=== PATIENT | male | born 1955 | race Caucasian/White ===

== ENCOUNTER 2017-11-07 08:00 | Outpatient (CLI) | payer BC | END 2017-11-07 08:01 | disposition home or self-care (01) | LOC: BICULT 08:00 | PROVIDERS: ATTEND Physician Assistant | DX: R79.89 Other specified abnormal findings of blood chemistry (principal); K74.60 Unspecified cirrhosis of liver; N28.1 Cyst of kidney, acquired; K76.6 Portal hypertension | CPT/HCPCS: 76700 ==

== ENCOUNTER 2017-12-16 07:20 | Emergency (ER) | payer BC ==
[2017-12-16 09:00] LABS: ALT (SGPT) 33 U/L (8-55); AST (SGOT) 75 U/L (5-34); Albumin 2.7 g/dL (3.4-4.8); Alkaline Phosphatase 89 U/L (40-150); Anion Gap 12 mmol/L (10-20); BUN (Urea Nitrogen) 9 mg/dL (8.4-25.7); Bilirubin, Total 2.7 mg/dL (0.2-1.2); Calc. Creatinine Clearance 0 mL/min (70-130); Calcium 8.3 mg/dL (7.8-10.44); Carbon Dioxide 22 mmol/L (23-31); Chloride 103 mmol/L (98-107); Estimated GFR-MDRD Greater than 90; Globulin 4.3 g/dL (2.4-3.5); Glucose 158 mg/dL (80-115); Lipase 38 U/L (8-78); Potassium 3.6 mmol/L (3.5-5.1); Sodium 133 mmol/L (136-145)
[2017-12-16 11:00] LABS: #Eosinphils 0.1 thou/uL (0.0-0.7); #Lymphocytes 1.1 thou/uL (1.20-3.40); #Monocytes 1.5 thou/uL (0.11-0.59); #Neutrophils 11.1 thou/uL (1.40-6.50); %Basophils 0.2 % (0.0-1.0); %Eosinophils 0.9 % (0.0-10.0); %Lymphocytes 8.1 % (21.0-51.0); %Monocytes 10.9 % (0.0-10.0); Hemoglobin 10.3 g/dL (14.0-18.0); Mean Corpuscular HGB CONC 30.8 g/dL (32.0-36.0); Mean Corpuscular Hemoglobin 24.4 pg (27.0-31.0); Mean Corpuscular Volume 79.2 fl (80.0-94.0); Mean Platelet Volume 7.7 fL (7.4-10.4); PLT Morphology Comment Appears Decreased; Platelet Count 68 thou/uL (130-400); RBC Distribution Width 16.7 % (11.5-14.5); Red Blood Cell (RBC) Count 4.23 mill/uL (4.70-6.10); White Blood Cell (WBC) Count 13.9 thou/uL (4.8-10.8)
[2017-12-16 12:24] LABS: Bilirubin Negative (Negative); Blood, Urine Negative (Negative); Clarity CLEAR (Clear); Glucose, Urine (Dipstick) Negative (Negative); Leukocyte Negative (Negative); Nitrite Negative (Negative); Protein, Urine (Dipstick) Negative (Neg-Trace)
--- NOTE | 2017-12-16 13:31 | CT ---
CT OF THE ABDOMEN AND PELVIS WITH IV CONTRAST: Date: 12/16/17 INDICATION: History of epigastric abdominal pain, fever, and chills. Pain is also in the right lower quadrant of the abdomen. History of colonoscopy 5 days ago with polyp removal. COMPARISON: None. FINDINGS: There is cirrhotic morphology of the liver. There is a tiny, subcentimeter, hypodensity within the ri ght hepatic dome on image 13, series 2. The gallbladder is partially distended. The spleen is enlarged, measuring 15.1 cm. Pancreas and adrenal glands are unremarkable. There are pe risplenic varicosities. There is a 2.4 cm exophytic hypodensity involving the left mid kidney that can be further characteriz ed on this single contrast exam. No hydronephrosis is evident. There is a retroaortic left renal vein. Prostate is mildly enlarged. There is nonspecific wall thickening involving portions of the cecum and ascending colon with some mi ld pericolonic inflammatory stranding. There is a normal appendix in the right lower quadrant. The di stal ileum appears within normal limits. No definite acute osseous abnormality is evident. IMPRESSION: 1. Wall thickening with pericolonic inflammatory stranding involving the cecum and ascending colon m ay reflect colitis of infections, inflammatory, or ischemic etiology. No drainable fluid collection i s evident. 2. Cirrhosis with findings of portal hypertension. 3. Hypodense lesion involving the left mid kidney incompletely characterized on the current examinat ion. Follow-up renal ultrasound may be helpful for improved characterization. 4. Other chronic findings as above. POS: [facility]
[2017-12-16] MEDS ORDERED: Iopamidol 370 76% 50 ML VIAL FS ONE (13:32)
[2017-12-16] MEDS ORDERED: ISOVUE-370 76%-LOCM 1 ML ONE (13:32)
[2017-12-16] MEDS ORDERED: Ciprofloxacin 500 MG TAB ONE (14:01)
[2017-12-16] MEDS ORDERED: metroNIDAZOLE 250 MG TAB ONE (14:01)
--- NOTE | 2018-01-01 15:12 | EKG ---
Test Reason : ABD PAIN Blood Pressure : / mmHG Vent. Rate : 079 BPM Atrial Rate : 079 BPM P-R Int : 178 ms QRS Dur : 094 ms QT Int : 402 ms P-R-T Axes : 036 -24 012 degrees QTc Int : 460 ms Normal sinus rhythm Septal infarct , age undetermined Abnormal ECG Confirmed by NEMO DELGADO ([id number]), editorial writer ELAINA JIN ([id number]) on 01/01/2018 3:12:12 PM Referred By: DR DELGADO Confirmed By:NEMO DELGADO
== END 2017-12-16 14:35 | disposition home or self-care (01) ==
LOC: ERS 07:20
DX: K91.89 Other postprocedural complications and disorders of digestive system (principal); D72.829 Elevated white blood cell count, unspecified; K74.60 Unspecified cirrhosis of liver
CPT/HCPCS: 36415; 74177; 80053; 81003; 83605; 83690; 85025; 93005; 96360; 96361

== ENCOUNTER 2017-12-24 08:12 | Outpatient (CLI) | payer OTHER | END 2017-12-24 08:13 | disposition home or self-care (01) | LOC: DTY/OP 08:12 | PROVIDERS: ATTEND Physician Assistant | DX: E11.9 Type 2 diabetes mellitus without complications (principal) | CPT/HCPCS: 97802 ==

== ENCOUNTER 2018-07-15 07:15 | Outpatient (CLI) | payer MEDICARE | END 2018-07-15 07:16 | disposition home or self-care (01) | LOC: BICULT 07:15 | PROVIDERS: ATTEND Internal Medicine Hematology & Oncology | DX: R16.1 Splenomegaly, not elsewhere classified (principal); D61.818 Other pancytopenia; N28.1 Cyst of kidney, acquired | CPT/HCPCS: 76700 ==

== ENCOUNTER 2018-11-16 08:42 | Outpatient (CLI) | payer MEDICARE ==
--- NOTE | 2018-11-16 11:31 | MRI ---
MRI OF THE RIGHT SHOULDER: DATE: 11/16/2018. PROVIDED CLINICAL HISTORY: Right shoulder pain. FINDINGS: There is full thickness, full width retracted tearing of the supraspinatus tendon with retraction to about the level of the acromion. There is extension of tear to involve the anterior fibers of the in fraspinatus in a full-thickness, partial width manner. Partial thickness undersurface tearing involv ing the cranial fibers of the subscapularis distally may be present. The components of the rotator c uff appear otherwise intact. Rotator cuff muscular volume appears preserved. There is medial sublux ation of the long head biceps tendon within the bicipital groove that may reflect bicipital sling inj ury. The amount of fluid within the glenohumeral joint appears physiologic. There is greater than physiol ogic subacromial subdeltoid bursal fluid. The glenoid labrum and glenohumeral articular cartilage ar e suboptimally evaluated in the absence of joint distention but appear grossly normal. Os acromiale and acromioclavicular joint osteoarthrosis are noted with narrowing of the subacromial s pace. Patchy signal alteration involving the deltoid muscle. Regional marrow and muscular signal ap pear otherwise unremarkable. IMPRESSION: 1. Full-thickness, full-width retracted tear of supraspinatus, with extension to involve the infrasp inatus in a full-thickness partial-width manner. Small partial thickness undersurface tear involving the cranial fibers of subscapularis may be present. 2. Medial subluxation of long-head biceps tendon within the bicipital groove may reflect bicipital s ling injury. 3. Acromioclavicular joint osteoarthrosis and os acromiale with narrowing of the subacromial space. 4. Signal alteration involving the deltoid muscle may reflect a small area of muscular strain or con tusion. POS: [facility]
== END 2018-11-16 08:43 | disposition home or self-care (01) ==
LOC: BICMRI 08:42
PROVIDERS: ATTEND Family Medicine
DX: M75.41 Impingement syndrome of right shoulder (principal); M75.121 Complete rotator cuff tear or rupture of right shoulder, not specified as traumatic; S43.001A Unspecified subluxation of right shoulder joint, initial encounter; M19.041 Primary osteoarthritis, right hand; M25.811 Other specified joint disorders, right shoulder; R93.7 Abnormal findings on diagnostic imaging of other parts of musculoskeletal system

== ENCOUNTER 2018-11-23 07:18 | Outpatient (CLI) | payer MEDICARE, OTHER ==
[2018-11-23 12:15] LABS: #Eosinphils 0.1 thou/uL (0.0-0.7); #Lymphocytes 0.5 thou/uL (1.20-3.40); #Monocytes 0.4 thou/uL (0.11-0.59); #Neutrophils 3.2 thou/uL (1.40-6.50); %Basophils 1.1 % (0.0-1.0); %Eosinophils 1.5 % (0.0-10.0); %Lymphocytes 11.9 % (21.0-51.0); %Monocytes 9.5 % (0.0-10.0); %Neutrophils 76.1 % (42.0-75.0); Hemoglobin 15.1 g/dL (14.0-18.0); Mean Corpuscular HGB CONC 32.9 g/dL (32.0-36.0); Mean Corpuscular Hemoglobin 32.7 pg (27.0-31.0); Mean Corpuscular Volume 99.6 fL (78.0-98.0); Mean Platelet Volume 9.7 fL (7.4-10.4); Platelet Count 53 thou/uL (130-400); RBC Distribution Width 13.6 % (11.5-14.5); Red Blood Cell (RBC) Count 4.61 mill/uL (4.70-6.10); White Blood Cell (WBC) Count 4.2 thou/uL (4.8-10.8)
[2018-11-23 12:31] LABS: Anion Gap 13 mmol/L (10-20); BUN (Urea Nitrogen) 7 mg/dL (8.4-25.7); Calc. Creatinine Clearance 0 mL/min (70-130); Calcium 8.9 mg/dL (7.8-10.44); Carbon Dioxide 21 mmol/L (23-31); Chloride 104 mmol/L (98-107); Estimated GFR-MDRD Greater than 90; Glucose 252 mg/dL (80-115); Potassium 4.3 mmol/L (3.5-5.1); Sodium 134 mmol/L (136-145)
--- NOTE | 2018-11-23 20:22 | EKG ---
Test Reason : Blood Pressure : / mmHG Vent. Rate : 068 BPM Atrial Rate : 068 BPM P-R Int : 168 ms QRS Dur : 094 ms QT Int : 394 ms P-R-T Axes : 038 -15 -02 degrees QTc Int : 418 ms Normal sinus rhythm Septal infarct (cited on or before 16-DEC-2017) Abnormal ECG When compared with ECG of 16-DEC-2017 08:28, Nonspecific T wave abnormality no longer evident in Lateral leads Confirmed by ROSEY RICHARDS, SLance ([id number]) on 11/23/2018 8:22:17 PM Referred By: SARA Confirmed By:DR. Maria Alejandra CURRIE MD
== END 2018-11-23 07:19 | disposition home or self-care (01) ==
LOC: LABBT 07:18
PROVIDERS: ATTEND Orthopaedic Surgery
DX: Z01.818 Encounter for other preprocedural examination (principal); M75.101 Unspecified rotator cuff tear or rupture of right shoulder, not specified as traumatic
CPT/HCPCS: 80048; 85025; 93005; 93010

== ENCOUNTER 2018-12-24 15:08 | Outpatient (CLI) | payer MEDICARE, OTHER ==
[~2018-12-24 15:08] MED LIST: Gadobenate Dimeglumine 529 MG/1 ML (20ML VIAL) ONE
--- NOTE | 2018-12-24 16:31 | RAD ---
MRI SAFETY [place] VIEW Date: 12-24-18 Provided Clinical History: MRI safety. FINDINGS: Single frontal view of the orbits was obtained for the purposes of exclusion of metallic foreign body in the region of the orbits. There is no evidence for such. IMPRESSION: As above. POS: OFF
--- NOTE | 2018-12-24 19:49 | MRI ---
MR OF THE ABDOMEN WITH AND WITHOUT CONTRAST 12/24/18 INDICATION: History of cirrhosis of the liver. CONTRAST: 15 mL of Multihance. COMPARISON: Prior CAT of the abdomen and pelvis dated 12/16/17. FINDINGS: There is prominent cirrhotic morphology of the liver. The spleen is enlarged measuring 16 cm. There a re numerous hypoenhancing, T2 hypointense, T1 hyperintense nodule seen throughout the liver consisten t with regenerative nodules. There is a small septated cyst involving the left mid kidney measuring 1.6 cm. No pathologically enlarged lymph nodes are evident. The pancreas and adrenal glands appear wi thin normal limits. There are mild splenic varicosities. There is suspected hemangioma within the lef t aspect of L3 and within the right aspect of L4. IMPRESSION: Cirrhosis with multiple regenerative nodules. No suspicious arterial enhancing lesion is seen to sugg est the presence of malignancy. Recommend short term MR followup in six months to document stability. Small internally septated left cyst measuring 1.6 cm. This can be followed up on the MR examination i n six months. Findings of portal hypertension. POS: [facility]
== END 2018-12-24 15:09 | disposition home or self-care (01) ==
LOC: BICCT 15:08
PROVIDERS: ATTEND Physician Assistant Medical
DX: K74.60 Unspecified cirrhosis of liver (principal); B18.2 Chronic viral hepatitis C; I83.90 Asymptomatic varicose veins of unspecified lower extremity; K76.89 Other specified diseases of liver
CPT/HCPCS: 70210; 74183; A9577

== ENCOUNTER 2019-04-05 05:22 | Outpatient (CLI) | payer MEDICARE, OTHER ==
[2019-04-05 16:25] LABS: #Eosinphils 0.3 thou/uL (0.0-0.7); #Lymphocytes 0.9 thou/uL (1.20-3.40); #Monocytes 0.6 thou/uL (0.11-0.59); #Neutrophils 3.9 thou/uL (1.40-6.50); %Basophils 0.8 % (0.0-1.0); %Eosinophils 4.4 % (0.0-10.0); %Lymphocytes 16.2 % (21.0-51.0); %Monocytes 11.2 % (0.0-10.0); %Neutrophils 67.4 % (42.0-75.0); Hemoglobin 13.1 g/dL (14.0-18.0); Mean Corpuscular HGB CONC 33.5 g/dL (32.0-36.0); Mean Corpuscular Hemoglobin 30.6 pg (27.0-31.0); Mean Corpuscular Volume 91.4 fL (78.0-98.0); Mean Platelet Volume 9.8 fL (7.4-10.4); Platelet Count 63 thou/uL (130-400); RBC Distribution Width 13.7 % (11.5-14.5); Red Blood Cell (RBC) Count 4.28 mill/uL (4.70-6.10); White Blood Cell (WBC) Count 5.8 thou/uL (4.8-10.8)
[2019-04-05 16:36] LABS: Anion Gap 16 mmol/L (10-20); BUN (Urea Nitrogen) 5 mg/dL (8.4-25.7); Calc. Creatinine Clearance 0 mL/min (70-130); Calcium 8.9 mg/dL (7.8-10.44); Carbon Dioxide 19 mmol/L (23-31); Chloride 104 mmol/L (98-107); Estimated GFR-MDRD 75; Glucose 201 mg/dL (80-115); Potassium 3.4 mmol/L (3.5-5.1); Sodium 136 mmol/L (136-145)
== END 2019-04-05 05:23 | disposition home or self-care (01) ==
LOC: LABBT 05:22
PROVIDERS: ATTEND Orthopaedic Surgery
DX: Z01.818 Encounter for other preprocedural examination (principal); M75.121 Complete rotator cuff tear or rupture of right shoulder, not specified as traumatic
CPT/HCPCS: 80048; 85025; 93005; 93010

== ENCOUNTER 2019-11-13 02:56 | Inpatient (IN) | payer MEDICARE ==
[2019-11-13 04:04] LABS: ALT (SGPT) 25 U/L (8-55); AST (SGOT) 77 U/L (5-34); Albumin 2.3 g/dL (3.4-4.8); Alkaline Phosphatase 89 U/L (40-110); Anion Gap 14 mmol/L (10-20); BUN (Urea Nitrogen) 22 mg/dL (8.4-25.7); Bilirubin, Total 3.7 mg/dL (0.2-1.2); Calc. Creatinine Clearance 0 mL/min (70-130); Calcium 7.6 mg/dL (7.8-10.44); Carbon Dioxide 20 mmol/L (23-31); Chloride 103 mmol/L (98-107); Estimated GFR-MDRD Greater than 90; Globulin 3.7 g/dL (2.4-3.5); Glucose 243 mg/dL (80-115); Lipase 66 U/L (8-78); Potassium 4.2 mmol/L (3.5-5.1); Sodium 133 mmol/L (136-145)
[2019-11-13 04:20] LABS: Hemoglobin 8.1 g/dL (14.0-18.0); Mean Corpuscular HGB CONC 31.4 g/dL (32.0-36.0); Mean Corpuscular Hemoglobin 28.1 pg (27.0-31.0); Mean Corpuscular Volume 89.7 fL (78.0-98.0); RBC Distribution Width 15.4 % (11.5-14.5); Red Blood Cell (RBC) Count 2.88 mill/uL (4.70-6.10); White Blood Cell (WBC) Count 9.6 thou/uL (4.8-10.8)
[2019-11-13 04:27] LABS: CKMB 2.1 ng/mL (0-6.6)
[2019-11-13 04:37] LABS: #Lymphocytes 0.6 thou/uL (1.20-3.40); #Monocytes 1.2 thou/uL (0.11-0.59); #Neutrophils 7.6 thou/uL (1.40-6.50); %Basophils 0.1 % (0.0-1.0); %Eosinophils 0.5 % (0.0-10.0); %Lymphocytes 6.6 % (21.0-51.0); %Neutrophils 79.9 % (42.0-75.0); Hypochromia SLIGHT = 6-15 cells (100X) (0-5/hpf); Large Platelets SLIGHT; MDiff Complete? YES; Mean Platelet Volume 11.2 fL (7.4-10.4); Platelet Count 48 thou/uL (130-400); Platelet Morphology Comment Appears Decreased; Polychromasia SLIGHT = 2-3 cells (100X) (0-2/hpf)
[2019-11-13] MEDS ORDERED: Ondansetron ODT 8 MG TAB PO SCH (05:51)
[2019-11-13] MEDS ORDERED: Ondansetron PF 4 MG/2 ML Vial IVP PRN (05:51)
[2019-11-13] MEDS ORDERED: Morphine 2 MG/ML SYRINGE SLOW IVP PRN ×2 (05:53→14:12)
[2019-11-13] MEDS ORDERED: cloNIDine 0.1 MG TAB PO PRN (05:53)
[2019-11-13] MEDS ORDERED: Promethazine HCl 25 MG in Sodium Chloride 0.9% 50 ML IVPB PRN (05:53)
[2019-11-13] MEDS ORDERED: HYDROcodone/Acetaminophen 5/325 mg Tablet PO PRN (05:54)
[2019-11-13] MEDS ORDERED: Acetaminophen 325 MG TAB PO PRN (05:54)
[2019-11-13] MEDS ORDERED: Pantoprazole 40 MG VIAL IVP SCH (06:00)
--- NOTE | 2019-11-13 06:02 | PDOC.HHP ---
Hospitalist HPI - History of Present Illness hematemesis History of Present Illness: Patient is a 64 year old male with PMH alcoholic/HCV cirrhosis who presents to ED for hematemesis and melena x 1 day, began this AM, 8 episodes BRB in vomit and lots of black melanotic diarrhea, patient has history of cirrhosis and alcohol abuse with previos EGD revealing varices and possibly ulcer, he has never had hematemesis such as this however. Some abdominal pain for a few days ago. He drinks ~3 beers a day. Has HCV. Had a GI doctor previuosly but retired, previous colonoscopy only had some polyps he believes. Patient vomited BRB while I am in room. No chest pain or shortness of breath. On meds previosly but noncompliant. ED Course: VITAL SIGNS Sat Nov 13, 2019 04:30 MEENA Matias, Serene BP: 158/65 Pulse: 91 Resp: 18 Temp: 98.5 (Oral) Pain: 4 O2 sat: 98 on (Room Air) Time: 11/13/2019 04:30. Hospitalist ROS - Review of Systems Constitutional: reports: chills, weakness. denies: fever, sweats, malaise, other Eyes: denies: pain, vision change, conjunctivae inflammation, eyelid inflammation, redness, other ENT: denies: ear pain, ear discharge, nose pain, nose discharge, nose congestion , mouth pain, mouth swelling, throat pain, throat swelling, other Respiratory: denies: cough, dry, shortness of breath, hemoptysis, SOB with excertion, pleuritic pain, sputum, wheezing, other Cardiovascular: denies: chest pain, palpitations, orthopnea, paroxysmal noc. dyspnea, edema, light headedness, other Gastrointestinal: reports: nausea, vomiting, melena, other (hematemesis) Genitourinary: denies: dysuria, frequency, incontinence, hematuria, retention, other Musculoskeletal: denies: neck pain, shoulder pain, arm pain, back pain, hand pain, leg pain, foot pain, other Skin: denies: rash, lesions, ryan, bruising, other Neurological: denies: weakness, numbness, incoordination, change in speech, confusion, seizures, other All other systems reviewed; all pertinent +/- noted in HPI/Subj Hospitalist History - Past Medical History Other Medical History: Past medical history includes history of diabetes Past medical history includes history of hyperlipidemia high cholesterol Past medical history includes history of hypertension Liver Cirrohsis, Past medical history includes hematological history. ESOPHAGEAL VARICES, HEP C. - Past Surgical History Other Surgical History: DUCT CYST, SHOULDER SX. - Family History Family History: reports: no pertinent history - Social History Other Social History: Patient drinks every day less than 5 drinks per day Alcohol history notes: 3 BEER Patient denies drug use Patient has no smoking history. - Exam General Appearance: NAD, awake alert Eye: PERRL, anicteric sclera ENT: normocephalic atraumatic, no oropharyngeal lesions, moist mucosa Neck: supple, symmetric, no JVD, no thyromegaly, no lymphadenopathy, no carotid bruit Heart: RRR, no murmur, no gallops, no rubs, normal peripheral pulses Respiratory: CTAB, no wheezes, no rales, no ronchi, normal chest expansion, no tachypnea, normal percussion Gastrointestinal: soft, non-tender, non-distended, normal bowel sounds, no palpable masses, no hepatomegaly, no splenomegaly, no bruit Extremities: no cyanosis, no clubbing, no edema Skin: normal turgor, no lesions, no rashes Neurological: cranial nerve grossly intact, normal sensation to touch, no weakness, no focal deficits, no new deficit Musculoskeletal: normal tone, normal strength, no muscle wasting Psychiatric: normal affect, normal behavior, A&O x 3 Hospitalist Results - Labs Result Diagrams: 11/13/19 04:03 11/13/19 03:25 Lab results: WBC 9.6 thou/uL (4.8-10.8) 11/13/19 04:03 Hgb 8.1 g/dL (14.0-18.0) L 11/13/19 04:03 Hct 25.9 % (42.0-52.0) L 11/13/19 04:03 MCV 89.7 fL (78.0-98.0) 11/13/19 04:03 Plt Count 48 thou/uL (130-400) L 11/13/19 04:03 Neutrophils % 79.9 % (42.0-75.0) H 11/13/19 04:03 Sodium 133 mmol/L (136-145) L 11/13/19 03:25 Potassium 4.2 mmol/L (3.5-5.1) 11/13/19 03:25 Chloride 103 mmol/L (98-107) 11/13/19 03:25 Carbon Dioxide 20 mmol/L (23-31) L 11/13/19 03:25 BUN 22 mg/dL (8.4-25.7) 11/13/19 03:25 Creatinine 0.75 mg/dL (0.7-1.3) 11/13/19 03:25 Glucose 243 mg/dL (80-115) H 11/13/19 03:25 Calcium 7.6 mg/dL (7.8-10.44) L 11/13/19 03:25 Total Bilirubin 3.7 mg/dL (0.2-1.2) H 11/13/19 03:25 AST 77 U/L (5-34) H 11/13/19 03:25 ALT 25 U/L (8-55) 11/13/19 03:25 Alkaline Phosphatase 89 U/L (40-110) 11/13/19 03:25 CK-MB (CK-2) 2.1 ng/mL (0-6.6) 11/13/19 03:25 Troponin I 0.070 ng/mL (< 0.028) H 11/13/19 03:25 Serum Total Protein 6.0 g/dL (5.8-8.1) 11/13/19 03:25 Albumin 2.3 g/dL (3.4-4.8) L 11/13/19 03:25 Lipase 66 U/L (8-78) 11/13/19 03:25 - EKG Interpretation EKG: NSR [address] changes Hospitalist H&P A/P - Plan Plan: Patient is a 64 year old male with PMH alcoholic/HCV cirrhosis who presents to ED for hematemesis and melena x 1 day, began this AM. # hematemesis/melena - admit to telemetry, NPO, consult GI, IV protonix, octreotide, ceftriaxone ppx for variceal bleed, trend CBC q8h and transfuse PRN hgb < 8, PRN zofran, morphine, phenergan in chart - CT A/ P performed but results not yet available, follow up today # HCV/alcoholic cirrhosis - as above, monitor for withdrawal # elevtaed troponin - possibly due to demand ischemia, trend troponin
[2019-11-13] MEDS: cefTRIAXone\\ROCEPHIN 1 GM in Sodium Chloride 0.9% 100 ML IVPB SCH (06:13)
[2019-11-13 06:29] LABS: Hemoglobin 6.9 g/dL (14.0-18.0); Mean Corpuscular HGB CONC 32.8 g/dL (32.0-36.0); Mean Corpuscular Hemoglobin 29.1 pg (27.0-31.0); Mean Corpuscular Volume 88.9 fL (78.0-98.0); Mean Platelet Volume 10.3 fL (7.4-10.4); Platelet Count 72 thou/uL (130-400); RBC Distribution Width 15.3 % (11.5-14.5); Red Blood Cell (RBC) Count 2.35 mill/uL (4.70-6.10); White Blood Cell (WBC) Count 10.8 thou/uL (4.8-10.8)
[2019-11-13] MEDS ORDERED: Prevnar 13-Val Conj/PF 0.5 ML SYRINGE IM ONE (06:30)
[2019-11-13 06:59] LABS: INR-International Normal Ratio 2.1; PTT 30.8 SEC (22.9-36.1)
[2019-11-13] MEDS: Octreotide Acetate 1,250 MCG in Sodium Chloride 0.9% 250 ML 250 ML IVPB SCH (07:36)
--- NOTE | 2019-11-13 07:42 | CT ---
FINAL REPORT: CT abdomen and pelvis with IV contrast PROVIDED CLINICAL HISTORY: Hematemesis COMPARISON: 12/16/2017 FINDINGS/IMPRESSION: Agree with the preliminary interpretation given by [facility], with the exception of stable luba earing subcentimeter hepatic hypodensities involving posterior segment right hepatic lobe incompletely characterized on the basis of this study.
[2019-11-13] MEDS: Polyethylene Glycol 3350 17 GM Packet PO SCH (09:00)
[2019-11-13] MEDS ORDERED: Fentanyl 100 MCG/2 ML VIAL ONE (10:30)
[2019-11-13] MEDS ORDERED: Iopamidol-370 76% 500 ML 1 ML ONE (10:39)
[2019-11-13] MEDS ORDERED: HYDROmorphone 2 MG/ML VIAL SLOW IVP PRN (10:45)
[2019-11-13] MEDS ORDERED: PACU-Morphine 4MG/ML VIAL SLOW IVP PRN (10:45)
[2019-11-13] MEDS ORDERED: Promethazine HCl 25 MG/ML VIAL SLOW IVP PRN (10:45)
[2019-11-13] MEDS ORDERED: Meperidine HCl/PF 25 MG/ML VIAL SLOW IVP PRN (10:45)
[2019-11-13] MEDS ORDERED: Ondansetron HCl/PF 4 MG/2 ML Vial IVP PRN (10:45)
[2019-11-13] MEDS ORDERED: Promethazine HCl 25 MG/ML VIAL IM PRN (10:45)
[2019-11-13] MEDS ORDERED: Morphine Sulfate 2 MG/ML SYRINGE SLOW IVP PRN (10:45)
[2019-11-13] MEDS ORDERED: Lidocaine 1% PF 5 ML VIAL ONE (11:07)
[2019-11-13] MEDS ORDERED: Succinylcholine Chloride 20 MG/ML 10 ml SYRINGE FS ONE (11:07)
[2019-11-13] MEDS ORDERED: ePHEDrine/0.9% NaCl/PF SYRINGE 50 mg/10 ml ONE (11:07)
[2019-11-13] MEDS ORDERED: PHENYLEPHRINE-NS 100 MCG/ML 10 ML SYRINGE ONE (11:07)
[2019-11-13] MEDS ORDERED: Ondansetron PF 4 MG/2 ML Vial ONE (11:07)
[2019-11-13] MEDS ORDERED: Dexamethasone 20 MG/5 ML VIAL ONE (11:07)
[2019-11-13] MEDS ORDERED: PROPOFOL 200 MG/20 ML VIAL ONE (11:07)
--- NOTE | 2019-11-13 11:18 | CON ---
DATE OF CONSULTATION: 11/13/2019 REASON FOR CONSULTATION: Hematemesis. HISTORY OF PRESENT ILLNESS: Ted Lima is a 64-year-old man, previously seen by my GI colleague, Dr. Tuan Cornell. Dr. Cornell followed him for hepatitis C and alcoholic cirrhosis. This is diagnosed a couple of years ago based on imaging. The patient subsequently completed course of treatment with Harvoni and was found to have SVR, with eradication of the hepatitis C. Unfortunately, he does continue to drink alcohol about 3 beers per day. His last EGD was in November 2017 and demonstrated only grade 1 varices and grade C distal esophagitis. He had a colonoscopy at that time showing 3 small polyps, which were all removed. The patient has really not been taking any medications and has a history of noncompliance. Yesterday afternoon about 2:30 p.m., he suddenly had emesis of a large amount of bright red blood. He subsequently started having melena. He has passed many jet-black stools over the past 18 hours since then. He estimates he has thrown up blood about 10 times. He had some active hematemesis upon arrival here. He was admitted to the telemetry unit early this morning. Initial hemoglobin was 8.1 and this came down to 6.9. He is now getting 1 unit RBC transfusion. Note, BUN is only 22, but INR is elevated to 2.1, and he is thrombocytopenic with platelets of 72. He is hemodynamically stable, currently not tachycardiac with blood pressure of 149/65 and pulse 85. However, he did have another episode of shweta hematemesis when I went into see him this morning. He has had some off and on upper abdominal discomfort over the past few weeks. No other symptoms preceding this presentation. REVIEW OF SYSTEMS: Full review of systems including constitutional, head, eyes, ears, nose, throat, GI, , cardiovascular, respiratory, musculoskeletal, neurologic systems is negative except as noted in the HPI. PAST MEDICAL HISTORY: 1. 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 2. Alcohol abuse, ongoing. 3. Hepatitis C, status post successful treatment with Harvoni with sustained virologic response. 4. Esophageal varices, grade 1, demonstrated on November 2017, EGD. 5. Erosive esophagitis. 6. Colon polyps, removed on November 2017, colonoscopy. 7. Diabetes. 8. Hypertension. 9. Hyperlipidemia. 10. Shoulder surgery. SOCIAL HISTORY: No smoking or drug use, but he does have about 3 beers per day. FAMILY HISTORY: Noncontributory. ALLERGIES: NAPROXEN AND NSAIDS. MEDICATIONS: Outpatient medications, none. Inpatient medications; the patient has been started on; 1. Ceftriaxone 1 g IV q.24 hours. 2. Octreotide drip at 50 mcg/hour. 3. Pantoprazole 40 mg IV q.12 hours. PHYSICAL EXAMINATION: VITAL SIGNS: Temperature 98.7, blood pressure 149/65, pulse 85, and oxygen saturation 97% on room air. GENERAL: This is a 64-year-old man, in [id number] distress from nausea with an episode of hematemesis during our conversation. SKIN: He is pale, mild jaundice. No rashes were palpable. EYES: Scleral icterus. Extraocular movements intact. ENT: Mucous membranes moist. No oral lesions. LYMPH: No submandibular or supraclavicular lymphadenopathy. THYROID: Nontender to palpation. HEART: Regular rate and rhythm. LUNGS: Clear to auscultation bilaterally. ABDOMEN: Nondistended. Bowel sounds are present. Mild tenderness to palpation in the epigastrium. No guarding or rebound tenderness. EXTREMITIES: No peripheral edema. VESSELS: Radial pulses 2+ bilaterally. NEURO: Cranial nerves II through XII intact bilaterally. No focal deficits. LABORATORY STUDIES: Initial hemoglobin 8.1, this came down to 6.9; WBC is 10.8; and platelets 72. INR 2.1. Sodium 133, potassium 4.2, BUN 22, and creatinine 0.75. Troponin 0.07. Total bilirubin 3.7, alkaline phosphatase 89, AST 77, ALT 25, albumin 2.3, and lipase 66. IMAGING STUDIES: CT of the abdomen and pelvis demonstrated cirrhosis and splenomegaly with portal hypertension as well as esophageal varices. No mention of ascites on the report. ASSESSMENT AND PLAN: 1. Hematemesis. 2. Melena. 3. History of small esophageal varices, overall I am very concerned for esophageal variceal hemorrhage. Despite his hemodynamic stability, he is significantly anemic and symptomatic with active hematemesis. Continue with the octreotide as well as the pantoprazole and ceftriaxone. Agree with transfusion, which he is currently getting. I have requested that he be transferred to the [facility]. We are going to plan on the esophagogastroduodenoscopy on an urgent basis today. Further recommendations following esophagogastroduodenoscopy. 4. Cirrhosis. 5. Ongoing alcohol use. 6. History of hepatitis C, though successfully treated with Harvoni over 1 year ago. The patient cirrhosis appears decompensated with total bilirubin 3.7. INR 2.1. He has thrombocytopenia and a hypoalbuminemia. Notes that imaging this admission does not show any liver lesion concerning for hepatocellular carcinoma, but he is going to have to get back on track in the outpatient setting with hepatocellular carcinoma surveillance and cirrhosis management. He is going to need to stop drinking alcohol completely. Job ID: [id number]
[2019-11-13 12:34] LABS: Actual Bicarbonate (HCO3a) 21.1 mEq/L (22-28); Base Excess (BEa) -3.6 mEq/L (-2.0 to +3.0); CO2 Tension 36.3 mmHg (35.0-45.0); Calcium, Ionized 0.97 mmol/L (1.12-1.30); Carboxyhemoglobin (COHb) 2.3 gm% (0.0-3.0); Hemoglobin (Hb) 6.8 g/dL (14.0-18.0); O2 Tension (PaO2) 125.4 mmHg (> 80.0); Potassium - ABG Lab 6.12 mmol/L (3.70-5.30); pH, Arterial 7.38 (7.35-7.45)
[2019-11-13 12:35] LABS: Puncture Site RRA
[2019-11-13 12:36] LABS: ALV-art Gradient 114.425 (0-20)
[2019-11-13] MEDS: Propofol 1,000 MG/100 ML VIAL IV PRN ×3 (13:00→21:46)
--- NOTE | 2019-11-13 13:27 | OP ---
DATE OF PROCEDURE: 11/13/2019 EDITOR CONTINUITY AND SCRIPT SURGEON: None. PROCEDURE PERFORMED: Esophagogastroduodenoscopy, diagnostic. INDICATION: Acute upper gastrointestinal hemorrhage in a patient with known cirrhosis and history of small esophageal varices, with last EGD about 2 years ago. MEDICATIONS: See Anesthesia record. FINDINGS: After discussion of the risks, benefits, and alternatives of the procedure, informed consent was obtained and witnessed. Pre-endoscopic cardiopulmonary examination was satisfactory. Time-out was performed before sedation was achieved. Sedation was achieved with Anesthesia assistance in the endoscopy unit with the patient endotracheally intubated under general anesthesia. The patient was placed in left lateral decubitus position. A Pentax adult upper endoscope was placed into the oropharynx and passed through the cricopharyngeus under direct visualization. The proximal and mid esophageal mucosa appeared normal. In the distal esophagus, there were 3 trunks of small esophageal varices. These were right now completely with air insufflation. There were no high-risk stigmata for bleeding. No stigmata of recent bleeding at all. There is a little bit of mucosal erythema representing erosive esophagitis, with a few small erosions at the GE junction, but no bleeding from these sites visualized. The endoscope was advanced into the stomach. There is a very large amount of vegetable food matter as well as blood clot filling the entire gastric fundus and much of the gastric antrum. This made visualization quite difficult and obscured about a third of the mucosa in the gastric fundus as well as some of the mucosa of the antrum. The endoscope was quickly passed beyond the pylorus and into the first and second portions of the duodenum, which appeared mildly edematous but were otherwise unremarkable. The endoscope was then withdrawn back into the stomach. An extensive amount of time was spent in attempting to evacuate the vegetable food matter and clots from the gastric fundus for better visualization. Notably, in the antrum, there was primarily vegetable matter and very dark old blood, but in the fundus, there was a vegetable matter and old blood, but also clots, which were black and red, and I cannot rule out continued active bleeding underneath all of that material. We employed a Alonso Net as well as suctioning, but ultimately our efforts were unsuccessful in completely clearing the gastric fundus. There is certainly not a large amount of new bleeding occurring during the procedure, but I really cannot rule out the possibility of continued active hemorrhage underneath all the food material within the fundus. I did get a good enough look in retroflexed view of the GE junction and it really appears that there were no gastric varices at all. There were no other mucosal abnormalities visualized to cause significant bleeding. There is some mild portal hypertensive gastropathy, but no active oozing from that. So, I have to presume that the site of bleeding is within the gastric fundus in an area that I cannot visualize. The upper endoscope was then completely withdrawn and the procedure was completed. The patient remained endotracheally intubated and is going to be transferred to the ICU. There were no immediate postprocedure complications. IMPRESSION: 1. Large amount of vegetable matter and fresh and old blood clot filling the gastric fundus, unable to completely clear the gastric fundus. 2. Mild diffuse portal hypertensive gastropathy, with no oozing from the areas visualized. 3. Grade 1 distal esophageal varices with no stigmata of hemorrhage. 4. Distal erosive esophagitis with a few small nonbleeding erosions at the gastroesophageal junction. 5. Unable to visualize the bleeding site, and due to failure to clear the fundus, unable to assure hemostasis. RECOMMENDATIONS: 1. Continue with the IV octreotide. 2. Continue the IV pantoprazole. 3. Close monitoring in the ICU. Trend H and H and continue to transfuse as needed. 4. We will plan for repeat EGD tomorrow, hopefully after the stomach has had a chance to evacuate some of this vegetable matter and clots. 5. Continue the IV antibiotics. Job ID: [id number]
[2019-11-13] MEDS ORDERED: Fentanyl BOLUS 250 ML IVPB PRN (14:12)
[2019-11-13] MEDS ORDERED: Propofol BOLUS 1,000 MG/100 ML VIAL IV PRN (14:12)
[2019-11-13] MEDS ORDERED: fentaNYL Citrate/PF 2,000 MCG in Sodium Chloride 0.9% 60 ML IV SCH (14:12)
[2019-11-13 14:31] LABS: Troponin I 0.063 ng/mL (< 0.028)
[2019-11-13] MEDS: Lorazepam 2 MG/ML VIAL SLOW IVP PRN ×2 (14:44→15:48)
--- NOTE | 2019-11-13 16:02 | CON ---
DATE OF CONSULTATION: 11/13/2019 HISTORY OF PRESENT ILLNESS: Mr. Lima is a gentleman, who came in with GI bleed. He underwent an endoscopy. There was a large amount of retained food in the stomach as well as blood. He was left intubated, anticipating another endoscopy tomorrow. PAST MEDICAL HISTORY: Remarkable for: 1. Cirrhosis secondary to hepatitis C, combined with alcohol. 2. Ongoing alcohol use. 3. History of treated hepatitis C with sustained virological response. 4. History of grade 1 varices last year. 5. History of colon polyps. 6. Diabetes. 7. Hypertension. 8. Lipid disorder. 9. History of shoulder surgery. SOCIAL HISTORY: He is nonsmoker, but does still drink beer. FAMILY HISTORY: Negative for lung disease. ALLERGIES: REPORTED TO NAPROSYN AND OTHER NONSTEROIDALS. MEDICATIONS: Have been reviewed. REVIEW OF SYSTEMS: Unobtainable. He is sedated for mechanical ventilation. PHYSICAL EXAMINATION: VITAL SIGNS: He is afebrile, heart rate is in the 90s and blood pressure is 124 /70. HEAD AND NECK: Unremarkable. LUNGS: Clear. HEART: Regular rhythm. ABDOMEN: Soft without guarding. EXTREMITIES: Without edema. NEUROLOGIC: Grossly nonfocal. Neuro exam is not really feasible at this point , but he does move his extremities. LABORATORY DATA: White count 10.8, hemoglobin 6.9, and platelet 72,000. Two more units of blood and fresh frozen plasma ordered for an INR of 2.1. A pH at noon was 7.38, CO2 of 36, pO2 of 125. Potassium 6.1. Hemoglobin is 6.8. He has another blood gas ordered this afternoon later, so we will look at his potassium then. IMPRESSION: 1. Gastrointestinal blood loss secondary to cirrhosis and complications with that most likely, he will need endoscopy again tomorrow. 2. Borderline hyperkalemia. His potassium remains elevated. We will treat this with Kayexalate. 3. Hyponatremia. 4. Ongoing alcohol use. 5. Diabetes. 6. Elevated liver enzymes with hyperbilirubinemia. 7. Hypoalbuminemia with coagulopathy secondary to his liver disease. PLAN: We will re-evaluate in the morning. He will have repeat lab work done this afternoon after his transfusions. Critical care time is 35 minutes. Job ID: [id number] [facility]
[2019-11-13 17:04] LABS: Actual Bicarbonate (HCO3a) 17.9 mEq/L (22-28); Base Excess (BEa) -6.1 mEq/L (-2.0 to +3.0); CO2 Tension 29.7 mmHg (35.0-45.0); Calcium, Ionized 0.89 mmol/L (1.12-1.30); Carboxyhemoglobin (COHb) 1.5 gm% (0.0-3.0); Hemoglobin (Hb) 7.7 g/dL (14.0-18.0); O2 Tension (PaO2) 170.4 mmHg (> 80.0); Potassium - ABG Lab 4.45 mmol/L (3.70-5.30)
[2019-11-13 17:06] LABS: ALV-art Gradient 77.675 (0-20); Puncture Site RRA
[2019-11-13 17:34] LABS: Hemoglobin 7.4 g/dL (14.0-18.0)
[2019-11-13 18:06] LABS: Troponin I 0.044 ng/mL (< 0.028)
[2019-11-13] MEDS: Pantoprazole 40 MG VIAL IVP SCH (20:31)
[2019-11-13 22:32] LABS: Hemoglobin 7.1 g/dL (14.0-18.0); Mean Corpuscular Hemoglobin 30.1 pg (27.0-31.0); Mean Corpuscular Volume 91.4 fL (78.0-98.0); Mean Platelet Volume 10.8 fL (7.4-10.4); Platelet Count 54 thou/uL (130-400); RBC Distribution Width 15.4 % (11.5-14.5); Red Blood Cell (RBC) Count 2.35 mill/uL (4.70-6.10)
[2019-11-13] MEDS ORDERED: Dextrose 5% in Water 1,000 ML IV PRN (22:53)
[2019-11-13] MEDS ORDERED: HumaLOG 300 UNITS/3 ML VIAL SC PRN (22:53)
[2019-11-13] MEDS ORDERED: Dextrose 50% Abboject 50 ML SYRINGE SLOW IVP PRN (22:53)
--- NOTE | 2019-11-13 22:55 | PDOC.EVN ---
Event Note - Event Note Event Note: Nurse called to report Hgb 7.1 tonight and elevated BS. Discussed with Dr. uRtherford, who is familiar with this patient, requested 3 more PRBCs to be ordered and hyperglycemia coverage.
[2019-11-13] MEDS: HumaLOG 300 UNITS/3 ML VIAL SC PRN (23:21)
[2019-11-14] MEDS: Propofol 1,000 MG/100 ML VIAL IV PRN ×5 (01:19→19:45)
[2019-11-14] MEDS: cefTRIAXone\\ROCEPHIN 1 GM in Sodium Chloride 0.9% 100 ML IVPB SCH (05:19)
[2019-11-14 05:20] LABS: Hemoglobin 8.9 g/dL (14.0-18.0)
[2019-11-14 05:22] LABS: INR-International Normal Ratio 1.7; Prothrombin Time 19.6 SEC (12.0-14.7)
[2019-11-14 05:43] LABS: ALT (SGPT) 22 U/L (8-55); AST (SGOT) 46 U/L (5-34); Albumin 2.5 g/dL (3.4-4.8); Alkaline Phosphatase 73 U/L (40-110); Anion Gap 11 mmol/L (10-20); BUN (Urea Nitrogen) 23 mg/dL (8.4-25.7); Bilirubin, Direct 1.8 mg/dL (0.1-0.3); Bilirubin, Total 2.9 mg/dL (0.2-1.2); Calc. Creatinine Clearance 100 mL/min (70-130); Calcium 7.1 mg/dL (7.8-10.44); Carbon Dioxide 22 mmol/L (23-31); Chloride 107 mmol/L (98-107); Estimated GFR-MDRD 82; Glucose 317 mg/dL (80-115); Magnesium 1.6 mg/dL (1.6-2.6); Potassium 4.1 mmol/L (3.5-5.1); Protein, Total 5.6 g/dL (5.8-8.1); Sodium 136 mmol/L (136-145)
[2019-11-14 07:02] LABS: Actual Bicarbonate (HCO3a) 24.3 mEq/L (22-28); Base Excess (BEa) 1.5 mEq/L (-2.0 to +3.0); CO2 Tension 31.7 mmHg (35.0-45.0); Calcium, Ionized 1.06 mmol/L (1.12-1.30); Carboxyhemoglobin (COHb) 0.8 gm% (0.0-3.0); Hemoglobin (Hb) 10.1 g/dL (14.0-18.0); O2 Tension (PaO2) 115.7 mmHg (> 80.0)
[2019-11-14 07:03] LABS: ALV-art Gradient 129.875 (0-20); Puncture Site RRA
[2019-11-14] MEDS: Polyethylene Glycol 3350 17 GM Packet PO SCH (09:16)
[2019-11-14] MEDS: Pantoprazole 40 MG VIAL IVP SCH ×2 (09:23→20:03)
[2019-11-14] MEDS: Metoclopramide HCl 10 MG/2 ML VIAL IVP SCH ×3 (09:42→20:04)
--- NOTE | 2019-11-14 09:47 | PRG ---
DATE OF SERVICE: 11/14/2019 SUBJECTIVE: Mr. Lima is a today for mechanical ventilation. OBJECTIVE: VITAL SIGNS: Blood pressure 162/66, heart rate 73, and respiratory rate is 18. LUNGS: Clear anteriorly. HEART: Regular rhythm. ABDOMEN: Soft. EXTREMITIES: Without edema. LABORATORY STUDIES: Hemoglobin is 8.9 this morning, 7.1 last night at 10 o'clock. Sodium 136, potassium 4.1, chloride 107, bicarb 22, BUN 23, creatinine 0.9. A pH 7.5, CO2 of 31, and pO2 of 115. IMPRESSION: Respiratory failure, status post intubation for gastrointestinal bleed. He has undergone endoscopy again today, which did not reveal a source. He still had tremendous amount of retained food products in his stomach, so he will receive IV Reglan today and another endoscopy tomorrow. He will remain mechanically ventilated. We will decrease his ventilatory rate. CRITICAL CARE TIME: 30 minutes. Job ID: [id number]
[2019-11-14] MEDS: Insulin Glargine 8 UNITS in Pre-Filled Syringe 1 EACH SC SCH (11:12)
--- NOTE | 2019-11-14 11:27 | OP ---
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 PROCEDURE PERFORMED: Esophagogastroduodenoscopy. INDICATION: Upper gastrointestinal bleeding in a patient with cirrhosis and history of known varices. EGD yesterday was unsuccessful visualizing fundus secondary to large amount of retained food matter and blood clots. MEDICATIONS: See Anesthesia record. FINDINGS: The endoscopy cart and equipment were brought up to the intensive care unit and the procedure was performed at bedside. Pre-endoscopic cardiopulmonary examination was satisfactory. Time-out was performed before further sedation was given. The patient was placed in left lateral decubitus position. A Pentax adult upper endoscope was placed into the oropharynx and passed through the cricopharyngeus under direct visualization. Again, the esophageal mucosa in the proximal mid esophagus appeared normal. In the distal esophagus, there was some mild nonerosive esophagitis and there are grade 1 distal esophageal varices, which flatten out completely with air insufflation and did not have any stigmata of bleeding. The endoscope was advanced into the stomach. Unfortunately, there was still copious amount of vegetable matter still filling up the gastric fundus. Encouragingly, there are no further blood clots visualized, but there is an extensive amount of particulate matter as well as dark fluid, which is consistent with some old blood. I still was unable to clear the gastric fundus or identify any specific bleeding lesion because of this. This are despite further attempts to remove vegetable matter, piecemeal with Alonso Net for quite some time. The gastric antrum and body again appeared normal. The first and second portions of the duodenum also appeared normal. The upper endoscope was completely withdrawn and the patient allowed to recover. The patient tolerated the procedure well. There were no immediate postprocedure complications. IMPRESSION: 1. Large amount of vegetable matter in the fundus, still unable to clear the fundus for visualization. 2. No further blood clots in the stomach, but significant amount of dark liquid representing some old blood. 3. Small esophageal varices with no stigmata of bleeding. 4. Erosive esophagitis, with no bleeding. 5. Mild portal hypertensive gastropathy, no bleeding were visualized. RECOMMENDATIONS: 1. We are going to give IV Reglan 10 mg q.6 hours today, in an attempt to get this vegetable matter out of the stomach for good visualization. 2. Plan for repeat EGD tomorrow. 3. Continue with the IV octreotide and IV Protonix in the meantime. 4. Continue Rocephin. 5. Continue to trend H and H, transfuse as needed. Job ID: [id number]
[2019-11-14 11:31] LABS: Hemoglobin 9.1 g/dL (14.0-18.0)
[2019-11-14] MEDS: Octreotide Acetate 1,250 MCG in Sodium Chloride 0.9% 250 ML 250 ML IVPB SCH (15:13)
[2019-11-14] MEDS: HumaLOG 300 UNITS/3 ML VIAL SC PRN ×2 (16:51→21:45)
--- NOTE | 2019-11-14 18:02 | PDOC.HOSPP ---
- Subjective Encounter Date: 11/13/19 Encounter Time: 14:00 Subjective: pt up in bed intubated. - Objective Vital Signs & Weight: Vital Signs (12 hours) Temp Pulse Resp BP Pulse Ox 11/14/19 16:00 98.3 F 13 11/14/19 15:31 79 134/62 11/14/19 14:00 21 H 11/14/19 13:15 74 134/56 L 11/14/19 12:00 15 11/14/19 11:14 86 145/58 H 11/14/19 11:00 98.5 F 11/14/19 10:00 18 11/14/19 08:00 19 100 11/14/19 07:57 73 162/66 H 11/14/19 07:00 97.9 F 11/14/19 06:00 19 Weight Weight 197 lb 12.074 oz Most Recent Monitor Data Heart Rate from ECG 70 NIBP 150/67 NIBP BP-Mean 94 Respiration from ECG 13 SpO2 100 I&O: 11/13/19 11/14/19 11/15/19 06:59 06:59 06:59 Intake Total 3060 Output Total 1700 720 Balance 1360 -720 Result Diagrams: 11/14/19 11:21 11/14/19 04:55 Additional Labs: Accuchecks 11/14/19 11/14/19 11/14/19 16:53 11:15 05:27 POC Glucose 250 H 308 H 320 H 11/13/19 22:27 POC Glucose 376 H Hospitalist ROS - Review of Systems Respiratory: denies: cough, dry, shortness of breath, hemoptysis, SOB with excertion, pleuritic pain, sputum, wheezing, other Cardiovascular: denies: chest pain, palpitations, orthopnea, paroxysmal noc. dyspnea, edema, light headedness, other Gastrointestinal: denies: nausea, vomiting, abdominal pain, diarrhea, constipation, melena, hematochezia, other Genitourinary: denies: dysuria, frequency, incontinence, hematuria, retention, other - Medication Medications: Active Medications Generic Name Dose Route Start Last Admin Trade Name Freq PRN Reason Stop Dose Admin Ceftriaxone Sodium 1 gm/ 100 mls @ 200 mls/hr 11/13/19 06:00 11/14/19 05:19 Sodium Chloride IVPB 11/19/19 06:29 100 mls Q24HR JOSE Administration Octreotide Acetate 1,250 mcg/ 251.25 mls @ 10.05 mls/hr 11/13/19 06:00 15:13 Sodium Chloride IVPB 251.25 mls INF JOSE Administration 50 MCG/HR Insulin Glargine 8 units/ 0.08 mls @ 0 mls/hr 11/14/19 09:00 11/14/19 11:12 Miscellaneous Medication SC 0.08 mls QAM JOSE Administration Insulin Human Lispro 0 units 11/13/19 22:53 11/13/19 23:21 Humalog SC 5 unit .BEDTIME SLIDING SC PRN Administration Bedtime Correctional Scale Insulin Human Lispro 0 units 11/14/19 09:42 11/14/19 16:51 Humalog SC 4 unit .MODERATE SLIDING SC PRN Administration Moderate Correctional Scale Lorazepam 2 mg 11/13/19 14:12 11/13/19 15:48 Ativan SLOW IVP 12/13/19 14:12 2 mg Q1H PRN Administration Breakthrough agitation Metoclopramide HCl 10 mg 11/14/19 09:30 11/14/19 14:27 Reglan IVP 10 mg Q6H JOSE Administration Pantoprazole Sodium 40 mg 11/13/19 21:00 11/14/19 09:23 Protonix IVP 40 mg Q12HR JOSE Administration Polyethylene Glycol 17 gm 11/13/19 09:00 11/14/19 09:16 Miralax PO Not Given DAILY JOSE Propofol 1,000 mg 11/13/19 14:12 11/14/19 15:13 Diprivan IV 12/13/19 14:12 1,000 mg INF PRN Administration TO ACHIEVE GOAL RASS Protocol - Exam ENT: negative: normocephalic atraumatic, no oropharyngeal lesions, moist mucosa , dry oral mucosa Neck: negative: supple, symmetric, no JVD, no thyromegaly, no lymphadenopathy, no carotid bruit, JVD Heart: negative: RRR, no murmur, no gallops, no rubs, normal peripheral pulses, irregular, diminshed peripheral pulses, murmur present, II/IV, III/IV Respiratory: negative: CTAB, no wheezes, no rales, no ronchi, normal chest expansion, no tachypnea, normal percussion, rales, rhonchi, tachypneic, wheezes Hosp A/P (1) Hematemesis Code(s): K92.0 - HEMATEMESIS Status: Acute (2) Cirrhosis Code(s): K74.60 - UNSPECIFIED CIRRHOSIS OF LIVER Status: Acute (3) Alcohol abuse Code(s): F10.10 - ALCOHOL ABUSE, UNCOMPLICATED Status: Acute (4) Anemia Code(s): D64.9 - ANEMIA, UNSPECIFIED Status: Acute (5) Acute respiratory failure Code(s): J96.00 - ACUTE RESPIRATORY FAILURE, UNSP W HYPOXIA OR HYPERCAPNIA Status: Acute - Plan pt intubated, s/p egd. He will need a repeat egd in am. will continue ppi and octreotide drip. will check hh q6h.
--- NOTE | 2019-11-14 18:11 | PDOC.HOSPP ---
- Subjective Encounter Date: 11/14/19 Encounter Time: 17:00 Subjective: pt intubated - Objective Vital Signs & Weight: Vital Signs (12 hours) Temp Pulse Resp BP Pulse Ox 11/14/19 16:00 98.3 F 13 11/14/19 15:31 79 134/62 11/14/19 14:00 21 H 11/14/19 13:15 74 134/56 L 11/14/19 12:00 15 11/14/19 11:14 86 145/58 H 11/14/19 11:00 98.5 F 11/14/19 10:00 18 11/14/19 08:00 19 100 11/14/19 07:57 73 162/66 H 11/14/19 07:00 97.9 F Weight Weight 197 lb 12.074 oz Most Recent Monitor Data Heart Rate from ECG 70 NIBP 150/67 NIBP BP-Mean 94 Respiration from ECG 13 SpO2 100 I&O: 11/13/19 11/14/19 11/15/19 06:59 06:59 06:59 Intake Total 3060 Output Total 1700 720 Balance 1360 -720 Result Diagrams: 11/14/19 11:21 11/14/19 04:55 Additional Labs: Accuchecks 11/14/19 11/14/19 11/14/19 16:53 11:15 05:27 POC Glucose 250 H 308 H 320 H 11/13/19 22:27 POC Glucose 376 H Hospitalist ROS - Review of Systems Other: pt intubated - Medication Medications: Active Medications Generic Name Dose Route Start Last Admin Trade Name Freq PRN Reason Stop Dose Admin Ceftriaxone Sodium 1 gm/ 100 mls @ 200 mls/hr 11/13/19 06:00 11/14/19 05:19 Sodium Chloride IVPB 11/19/19 06:29 100 mls Q24HR JOSE Administration Octreotide Acetate 1,250 mcg/ 251.25 mls @ 10.05 mls/hr 11/13/19 06:00 15:13 Sodium Chloride IVPB 251.25 mls INF JOSE Administration 50 MCG/HR Insulin Glargine 8 units/ 0.08 mls @ 0 mls/hr 11/14/19 09:00 11/14/19 11:12 Miscellaneous Medication SC 0.08 mls QAM JOSE Administration Insulin Human Lispro 0 units 01/18/20 22:53 11/13/19 23:21 Humalog SC 5 unit .BEDTIME SLIDING SC PRN Administration Bedtime Correctional Scale Insulin Human Lispro 0 units 11/14/19 09:42 11/14/19 16:51 Humalog SC 4 unit .MODERATE SLIDING SC PRN Administration Moderate Correctional Scale Lorazepam 2 mg 11/13/19 14:12 11/13/19 15:48 Ativan SLOW IVP 12/13/19 14:12 2 mg Q1H PRN Administration Breakthrough agitation Metoclopramide HCl 10 mg 11/14/19 09:30 11/14/19 14:27 Reglan IVP 10 mg Q6H JOSE Administration Pantoprazole Sodium 40 mg 11/13/19 21:00 11/14/19 09:23 Protonix IVP 40 mg Q12HR JOSE Administration Polyethylene Glycol 17 gm 11/13/19 09:00 11/14/19 09:16 Miralax PO Not Given DAILY JOSE Propofol 1,000 mg 11/13/19 14:12 11/14/19 15:13 Diprivan IV 12/13/19 14:12 1,000 mg INF PRN Administration TO ACHIEVE GOAL RASS Protocol - Exam Neck: negative: supple, symmetric, no JVD, no thyromegaly, no lymphadenopathy, no carotid bruit, JVD Heart: negative: RRR, no murmur, no gallops, no rubs, normal peripheral pulses, irregular, diminshed peripheral pulses, murmur present, II/IV, III/IV Respiratory: negative: CTAB, no wheezes, no rales, no ronchi, normal chest expansion, no tachypnea, normal percussion, rales, rhonchi, tachypneic, wheezes Gastrointestinal: negative: soft, non-tender, non-distended, normal bowel sounds , no palpable masses, no hepatomegaly, no splenomegaly, no bruit, no guarding, no rigidity, tender to palpation, distended, diminished bowl sounds, voluntary guarding Hosp A/P (1) Hematemesis Code(s): K92.0 - HEMATEMESIS Status: Acute (2) Cirrhosis Code(s): K74.60 - UNSPECIFIED CIRRHOSIS OF LIVER Status: Acute (3) Alcohol abuse Code(s): F10.10 - ALCOHOL ABUSE, UNCOMPLICATED Status: Acute (4) Anemia Code(s): D64.9 - ANEMIA, UNSPECIFIED Status: Acute (5) Acute respiratory failure Code(s): J96.00 - ACUTE RESPIRATORY FAILURE, UNSP W HYPOXIA OR HYPERCAPNIA Status: Acute - Plan pt intubated, s/p egd. He will need a repeat egd in am. will continue ppi and octreotide drip. will check hh q6h. 11/14 hh stable, reglan added. large amounts of food in stomach with clots. will continue abx for now.
[2019-11-14 18:35] LABS: Hemoglobin 8.9 g/dL (14.0-18.0)
[2019-11-15] MEDS: Propofol 1,000 MG/100 ML VIAL IV PRN ×4 (01:30→23:52)
[2019-11-15] MEDS: Metoclopramide HCl 10 MG/2 ML VIAL IVP SCH ×4 (04:26→20:52)
[2019-11-15] MEDS: cefTRIAXone\\ROCEPHIN 1 GM in Sodium Chloride 0.9% 100 ML IVPB SCH (05:35)
[2019-11-15 05:45] LABS: INR-International Normal Ratio 1.8; Prothrombin Time 20.6 SEC (12.0-14.7)
[2019-11-15 05:53] LABS: Hemoglobin A1c 6.3 % (4.0-6.0)
[2019-11-15 05:59] LABS: ALT (SGPT) 31 U/L (8-55); AST (SGOT) 77 U/L (5-34); Albumin 2.3 g/dL (3.4-4.8); Alkaline Phosphatase 76 U/L (40-110); Anion Gap 11 mmol/L (10-20); BUN (Urea Nitrogen) 29 mg/dL (8.4-25.7); Bilirubin, Direct 2.1 mg/dL (0.1-0.3); Bilirubin, Total 3.2 mg/dL (0.2-1.2); Calc. Creatinine Clearance 91 mL/min (70-130); Calcium 6.9 mg/dL (7.8-10.44); Carbon Dioxide 22 mmol/L (23-31); Chloride 109 mmol/L (98-107); Estimated GFR-MDRD 74; Glucose 254 mg/dL (80-115); Magnesium 1.8 mg/dL (1.6-2.6); Potassium 3.7 mmol/L (3.5-5.1); Protein, Total 5.5 g/dL (5.8-8.1); Sodium 138 mmol/L (136-145)
[2019-11-15] MEDS: HumaLOG 300 UNITS/3 ML VIAL SC PRN ×3 (06:06→16:28)
[2019-11-15 06:14] LABS: Anisocytosis SLIGHT = 6-15 cells (100X) (0-5/hpf); Band 2 % (5-11); Hemoglobin 8.7 g/dL (14.0-18.0); Lymphocytes 2 % (21-51); MDiff Complete? YES; Mean Corpuscular HGB CONC 32.5 g/dL (32.0-36.0); Mean Corpuscular Hemoglobin 29.5 pg (27.0-31.0); Mean Corpuscular Volume 90.8 fL (78.0-98.0); Mean Platelet Volume 10.8 fL (7.4-10.4); Monocytes 8 % (0-10); Neutrophil 88 % (42-75); Platelet Count 66 thou/uL (130-400); Platelet Morphology Comment Appears Decreased; RBC Distribution Width 15.9 % (11.5-14.5); Red Blood Cell (RBC) Count 2.93 mill/uL (4.70-6.10)
[2019-11-15] MEDS: Insulin Glargine 8 UNITS in Pre-Filled Syringe 1 EACH SC SCH (08:13)
[2019-11-15] MEDS: Pantoprazole 40 MG VIAL IVP SCH ×2 (08:13→20:50)
[2019-11-15] MEDS: Polyethylene Glycol 3350 17 GM Packet PO SCH (09:21)
--- NOTE | 2019-11-15 10:27 | PDOC.HOSPP ---
- Subjective Encounter Date: 11/15/19 Encounter Time: 12:20 non-verbal Subjective: Patient with EGD this AM, still lots of veggetable matter in stomach but no further blood/blood clots visualized. Esophageal varices without any evidence of bleeding. Patient sedated on vent. - Objective Vital Signs & Weight: Vital Signs (12 hours) Temp Pulse Resp BP Pulse Ox 11/15/19 10:11 80 11/15/19 10:00 14 11/15/19 08:00 98.3 F 15 100 11/15/19 07:01 92 11/15/19 06:00 18 11/15/19 04:54 81 11/15/19 04:00 98.8 F 14 11/15/19 02:00 16 11/15/19 00:00 98.7 F 16 11/14/19 23:27 92 134/54 L Weight Weight 197 lb 12.074 oz Most Recent Monitor Data Heart Rate from ECG 79 NIBP 139/64 NIBP BP-Mean 89 Respiration from ECG 16 SpO2 100 I&O: 11/14/19 11/15/19 11/16/19 06:59 06:59 06:59 Intake Total 3060 790 Output Total 1700 1580 220 Balance 1360 -790 -220 Result Diagrams: 11/15/19 05:00 11/15/19 05:00 Additional Labs: Accuchecks 11/15/19 11/14/19 11/14/19 06:05 21:47 16:53 POC Glucose 243 H 218 H 250 H 11/14/19 11:15 POC Glucose 308 H Hospitalist ROS - Review of Systems ROS unobtainable: due to endotracheal tube - Medication Medications: Active Medications Generic Name Dose Route Start Last Admin Trade Name Freq PRN Reason Stop Dose Admin Ceftriaxone Sodium 1 gm/ 100 mls @ 200 mls/hr 11/13/19 06:00 11/15/19 05:35 Sodium Chloride IVPB 11/19/19 06:29 100 mls Q24HR JOSE Administration Octreotide Acetate 1,250 mcg/ 251.25 mls @ 10.05 mls/hr 11/13/19 06:00 15:13 Sodium Chloride IVPB 251.25 mls INF JOSE Administration 50 MCG/HR Insulin Glargine 8 units/ 0.08 mls @ 0 mls/hr 11/14/19 09:00 11/15/19 08:13 Miscellaneous Medication SC 0.08 mls QAM JOSE Administration Insulin Human Lispro 0 units 11/13/19 22:53 11/14/19 21:45 Humalog SC 2 unit .BEDTIME SLIDING SC PRN Administration Bedtime Correctional Scale Insulin Human Lispro 0 units 11/14/19 09:42 11/15/19 06:06 Humalog SC 4 unit .MODERATE SLIDING SC PRN Administration Moderate Correctional Scale Lorazepam 2 mg 11/13/19 14:12 11/13/19 15:48 Ativan SLOW IVP 12/13/19 14:12 2 mg Q1H PRN Administration Breakthrough agitation Metoclopramide HCl 10 mg 11/14/19 09:30 11/15/19 04:26 Reglan IVP 10 mg Q6H JOSE Administration Morphine Sulfate 2 mg 11/13/19 14:12 11/15/19 08:53 Morphine SLOW IVP 12/13/19 14:12 2 mg Q1H PRN Administration BREAKTHROUGH PAIN/Agitation Pantoprazole Sodium 40 mg 11/13/19 21:00 11/15/19 08:13 Protonix IVP 40 mg Q12HR JOSE Administration Polyethylene Glycol 17 gm 11/13/19 09:00 11/15/19 09:21 Miralax PO Not Given DAILY JOSE Propofol 1,000 mg 11/13/19 14:12 11/15/19 04:26 Diprivan IV 12/13/19 14:12 1,000 mg INF PRN Administration TO ACHIEVE GOAL RASS Protocol - Exam General - other findings: sedated on vent ENT: moist mucosa Heart: RRR, no murmur, no gallops, no rubs Respiratory: CTAB, no wheezes, no rales, no ronchi Gastrointestinal: soft, non-tender, non-distended, normal bowel sounds Psychiatric - other findings: sedated and unresponsive on vent Hosp A/P (1) Upper GI bleed Code(s): K92.2 - GASTROINTESTINAL HEMORRHAGE, UNSPECIFIED Status: Acute (2) Acute blood loss anemia Code(s): D62 - ACUTE POSTHEMORRHAGIC ANEMIA Status: Acute (3) Alcoholic cirrhosis of liver Code(s): K70.30 - ALCOHOLIC CIRRHOSIS OF LIVER WITHOUT ASCITES Status: Chronic (4) Acute respiratory failure Code(s): J96.00 - ACUTE RESPIRATORY FAILURE, UNSP W HYPOXIA OR HYPERCAPNIA Status: Acute Plan: on ventilator (5) Alcohol abuse Code(s): F10.10 - ALCOHOL ABUSE, UNCOMPLICATED Status: Acute - Plan H/H stable Retained food products obstructing visualization but stable H/H and no new blood on EGD today so likely no need to repeat EGD during the hospitalization Likely need repeat as outpatient. Plan to wean sedation and try extubation tomorrow.
--- NOTE | 2019-11-15 10:40 | OP ---
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 PROCEDURE PERFORMED: Esophagogastroduodenoscopy, diagnostic. INDICATION: Upper GI bleeding in a patient with cirrhosis and history of known varices. MEDICATIONS: See ICU record. FINDINGS: Informed consent was obtained and verified. The endoscopy cart and equipment were brought up to the intensive care unit. The procedure was performed at bedside. Pre-endoscopic cardiopulmonary examination was satisfactory. Time-out was performed before further sedation was given. The patient was placed in the left lateral decubitus position. A Pentax adult therapeutic upper endoscope was placed into the oropharynx and passed through the cricopharyngeus under direct visualization. The esophageal mucosa appeared normal in the proximal mid esophagus. In the distal esophagus, there was some mild nonerosive esophagitis and there are grade 1 distal esophageal varices, which do not have any stigmata of bleeding, which flatten out completely with air insufflation. The endoscope was advanced into the stomach. There was still a large amount of vegetable matter within the gastric fundus. I was unable to completely clear the fundus, but I was able to get better views than on the prior exam. There were no gastric varices visualized. There is some diffuse portal hypertensive gastropathy, but there is no bleeding. No active oozing. There are no blood clots remaining in the stomach. No old blood or active bleeding. The gastric antrum appeared unremarkable. The endoscope was passed down through the pylorus and into the first and second portions of the duodenum, which still remained unremarkable. The upper endoscope was completely withdrawn, and the patient allowed to recover. The patient tolerated the procedure well. There were no immediate postprocedure complications. IMPRESSION: 1. Still large amount of vegetable matter in the gastric fundus. 2. No further blood clots, no old blood or active bleeding within the entire stomach. 3. Small esophageal varices with no stigmata of bleeding. 4. No gastric varices visualized, though unable to completely clear the fundus. 5. Mild portal hypertensive gastropathy, with no bleeding visualized. RECOMMENDATIONS: At this point, with hemoglobin stable the past couple of days and no further evidence of blood in the stomach, I would recommend the patient could be awakened and extubated and started on a clear liquid diet. I would continue octreotide today, but tomorrow if everything remains stable, I think this could be discontinued and he should be started on a nonselective beta nesha. We will certainly plan to repeat EGD at some point in the near future, but if he remains stable, this might be done on an outpatient basis. Job ID: [id number]
--- NOTE | 2019-11-15 13:29 | PRG ---
DATE OF SERVICE: 11/15/2019 SUBJECTIVE: Ted Lima still has abundant retained food products in the stomach on endoscopy today. He is afebrile. Respiratory rates in the teens. FiO2 is 40. Blood pressure 114/55. There is no further endoscopy planned. OBJECTIVE: LUNGS: Clear. HEART: Regular rhythm. ABDOMEN: Soft. EXTREMITIES: Without asymmetry or edema. LABORATORY DATA: White count 12, hemoglobin 8.7, platelets 66,000. Sodium 138, potassium 3.7, chloride 109, bicarb 22, BUN 29, creatinine 1.01, bilirubin is 3.2, albumin is 3.3. INR is 1.8. IMPRESSION: 1. Gastrointestinal bleed, upper with blood loss anemia. 2. 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 3. Ongoing alcohol use. 4. Esophageal varices. 5. Diabetes. 6. Hypertension. We will begin to slowly awaken him and consider spontaneous breathing trial in the morning. Critical care time is 35 minutes. Job ID: [id number] MTDD
[2019-11-15] MEDS: Octreotide Acetate 1,250 MCG in Sodium Chloride 0.9% 250 ML 250 ML IVPB SCH (20:00)
[2019-11-16] MEDS: Metoclopramide HCl 10 MG/2 ML VIAL IVP SCH ×3 (03:03→14:59)
[2019-11-16 04:21] LABS: INR-International Normal Ratio 2.1; Prothrombin Time 23.6 SEC (12.0-14.7)
[2019-11-16 04:39] LABS: ALT (SGPT) 40 U/L (8-55); AST (SGOT) 113 U/L (5-34); Albumin 2.3 g/dL (3.4-4.8); Alkaline Phosphatase 76 U/L (40-110); Anion Gap 7 mmol/L (10-20); BUN (Urea Nitrogen) 32 mg/dL (8.4-25.7); Bilirubin, Direct 2.2 mg/dL (0.1-0.3); Bilirubin, Total 3.2 mg/dL (0.2-1.2); Calc. Creatinine Clearance 102 mL/min (70-130); Carbon Dioxide 24 mmol/L (23-31); Chloride 113 mmol/L (98-107); Estimated GFR-MDRD 84; Glucose 177 mg/dL (80-115); Potassium 3.6 mmol/L (3.5-5.1); Protein, Total 5.4 g/dL (5.8-8.1); Sodium 140 mmol/L (136-145)
[2019-11-16 05:00] LABS: Band 8 % (5-11); Eosinophils 1 % (0-10); Hemoglobin 8.9 g/dL (14.0-18.0); Lymphocytes 15 % (21-51); MDiff Complete? YES; Mean Corpuscular HGB CONC 32.3 g/dL (32.0-36.0); Mean Corpuscular Hemoglobin 29.9 pg (27.0-31.0); Mean Corpuscular Volume 92.8 fL (78.0-98.0); Mean Platelet Volume 10.4 fL (7.4-10.4); Monocytes 13 % (0-10); Neutrophil 63 % (42-75); Platelet Count 57 thou/uL (130-400); Platelet Morphology Comment Appears Decreased; RBC Distribution Width 16.1 % (11.5-14.5); Red Blood Cell (RBC) Count 2.98 mill/uL (4.70-6.10); White Blood Cell (WBC) Count 5.1 thou/uL (4.8-10.8)
[2019-11-16] MEDS: cefTRIAXone\\ROCEPHIN 1 GM in Sodium Chloride 0.9% 100 ML IVPB SCH (05:39)
[2019-11-16] MEDS: HumaLOG 300 UNITS/3 ML VIAL SC PRN ×3 (05:40→16:12)
[2019-11-16] MEDS: Propofol 1,000 MG/100 ML VIAL IV PRN (05:42)
[2019-11-16 07:33] LABS: Actual Bicarbonate (HCO3a) 23.8 mEq/L (22-28); Base Excess (BEa) 0.4 mEq/L (-2.0 to +3.0); CO2 Tension 33.4 mmHg (35.0-45.0); Calcium, Ionized 1.08 mmol/L (1.12-1.30); Carboxyhemoglobin (COHb) 1.8 gm% (0.0-3.0); Hemoglobin (Hb) 9.4 g/dL (14.0-18.0); O2 Tension (PaO2) 60.6 mmHg (> 80.0); Potassium - ABG Lab 3.35 mmol/L (3.70-5.30); pH, Arterial 7.47 (7.35-7.45)
[2019-11-16] MEDS: hydrALAZINE 20 MG/ML VIAL SLOW IVP PRN ×2 (07:38→16:12)
[2019-11-16 08:24] LABS: Puncture Site L.R.
[2019-11-16] MEDS: Insulin Glargine 8 UNITS in Pre-Filled Syringe 1 EACH SC SCH (08:24)
[2019-11-16] MEDS: Pantoprazole 40 MG VIAL IVP SCH ×2 (08:24→20:37)
[2019-11-16] MEDS: Polyethylene Glycol 3350 17 GM Packet PO SCH (08:24)
--- NOTE | 2019-11-16 09:14 | RAD ---
PORTABLE AP CHEST XRAY: HISTORY: On ventilator. COMPARISON: None. FINDINGS: Endotracheal tube is noted in place with the tip overlying the T4 vertebral body and above the level of the kathia. The cardiac silhouette is magnified by projection. Lungs appear clear. Postsurgical changes right shoulder are seen. Vascular calcifications are seen in the thoracic aorta. IMPRESSION: 1. No acute cardiopulmonary process. 2. Endotracheal tube noted in place which is above the level of the kathia. POS: OFF
--- NOTE | 2019-11-16 09:51 | PDOC.HOSPP ---
- Subjective Encounter Date: 11/16/19 Encounter Time: 12:40 non-verbal Subjective: Patient extubated this AM. Confused since. No words, just moaning. Not following commands. - Objective Vital Signs & Weight: Vital Signs (12 hours) Temp Pulse Resp BP Pulse Ox 11/16/19 08:00 99.1 F 17 100 11/16/19 07:38 83 182/65 H 11/16/19 07:15 83 182/65 H 11/16/19 06:00 21 H 11/16/19 04:00 98.8 F 16 11/16/19 02:38 64 124/47 L 11/16/19 02:00 12 11/16/19 00:00 98.3 F 12 11/15/19 22:04 73 111/42 L 11/15/19 22:00 15 Weight Admit Weight 197 lb Weight 185 lb 13.595 oz Most Recent Monitor Data Heart Rate from ECG 103 NIBP 154/60 NIBP BP-Mean 91 Respiration from ECG 19 SpO2 99 I&O: 11/15/19 11/16/19 11/17/19 06:59 06:59 06:59 Intake Total 790 708 17.1 Output Total 1580 985 100 Balance -790 -277 -82.9 Result Diagrams: 11/16/19 04:00 11/16/19 04:00 Additional Labs: Accuchecks 11/16/19 11/15/19 11/15/19 05:41 20:53 16:30 POC Glucose 165 H 168 H 168 H 11/15/19 11/15/19 11:52 11:41 POC Glucose 242 H 192 H Hospitalist ROS - Review of Systems ROS unobtainable: due to mental status - Medication Medications: Active Medications Generic Name Dose Route Start Last Admin Trade Name Freq PRN Reason Stop Dose Admin Hydralazine HCl 10 mg 11/13/19 05:53 11/16/19 07:38 Apresoline SLOW IVP 10 mg Q6H PRN Administration SBP GREATER THAN 160 Ceftriaxone Sodium 1 gm/ 100 mls @ 200 mls/hr 11/13/19 06:00 11/16/19 05:39 Sodium Chloride IVPB 11/19/19 06:29 100 mls Q24HR JOSE Administration Octreotide Acetate 1,250 mcg/ 251.25 mls @ 10.05 mls/hr 11/13/19 06:00 20:00 Sodium Chloride IVPB 251.25 mls INF JOSE Administration 50 MCG/HR Insulin Glargine 8 units/ 0.08 mls @ 0 mls/hr 11/14/19 09:00 11/16/19 08:24 Miscellaneous Medication SC 0.08 mls QAM JOSE Administration Insulin Human Lispro 0 units 11/13/19 22:53 11/14/19 21:45 Humalog SC 2 unit .BEDTIME SLIDING SC PRN Administration Bedtime Correctional Scale Insulin Human Lispro 0 units 11/14/19 09:42 11/16/19 05:40 Humalog SC 2 unit .MODERATE SLIDING SC PRN Administration Moderate Correctional Scale Lorazepam 2 mg 11/13/19 14:12 11/13/19 15:48 Ativan SLOW IVP 12/13/19 14:12 2 mg Q1H PRN Administration Breakthrough agitation Metoclopramide HCl 10 mg 11/14/19 09:30 11/16/19 08:25 Reglan IVP 10 mg Q6H JOSE Administration Morphine Sulfate 2 mg 11/13/19 14:12 11/15/19 08:53 Morphine SLOW IVP 12/13/19 14:12 2 mg Q1H PRN Administration BREAKTHROUGH PAIN/Agitation Pantoprazole Sodium 40 mg 11/13/19 21:00 11/16/19 08:24 Protonix IVP 40 mg Q12HR JOSE Administration Polyethylene Glycol 17 gm 11/13/19 09:00 11/16/19 08:24 Miralax PO Not Given DAILY JOSE Propofol 1,000 mg 11/13/19 14:12 11/16/19 05:42 Diprivan IV 12/13/19 14:12 1,000 mg INF PRN Administration TO ACHIEVE GOAL RASS Protocol - Exam General - other findings: somnolent, arousable ENT: moist mucosa Heart: RRR, no murmur, no gallops, no rubs Respiratory: CTAB, no wheezes, no rales, no ronchi Gastrointestinal: soft, non-distended, normal bowel sounds Gastrointestinal - other findings: moans with palpation of abdomen Neurological - other findings: moving all extremities equally Psychiatric: not oriented Psychiatric - other findings: no words Hosp A/P (1) Upper GI bleed Code(s): K92.2 - GASTROINTESTINAL HEMORRHAGE, UNSPECIFIED Status: Acute (2) Acute blood loss anemia Code(s): D62 - ACUTE POSTHEMORRHAGIC ANEMIA Status: Acute (3) Alcoholic cirrhosis of liver Code(s): K70.30 - ALCOHOLIC CIRRHOSIS OF LIVER WITHOUT ASCITES Status: Chronic (4) Acute respiratory failure Code(s): J96.00 - ACUTE RESPIRATORY FAILURE, UNSP W HYPOXIA OR HYPERCAPNIA Status: Acute (5) Alcohol abuse Code(s): F10.10 - ALCOHOL ABUSE, UNCOMPLICATED Status: Acute (6) Acute metabolic encephalopathy Code(s): G93.41 - METABOLIC ENCEPHALOPATHY Status: Acute - Plan H/H stable No bleeding on repeat EGD, plan for EGD as outpatient Patient confused today. BP up a bit, no significant tachycardia. Concern for possible EtOH withdrawls. I suspect he drinks more than a couple beers per day as reported on admission. Family in room states that he drinks a lot though not sure exact amounts. Will give prn benzos, monitor vitals closely.
[2019-11-16] MEDS ORDERED: Diazepam 5 MG TAB PO PRN (12:29)
[2019-11-16] MEDS ORDERED: Thiamine HCl 200 MG/2 ML VIAL IM SCH (12:30)
--- NOTE | 2019-11-16 15:46 | PRG ---
DATE OF SERVICE: 11/16/2019 SUBJECTIVE: Ted Lima underwent spontaneous breathing trial this morning. He passed a leak test. His minute volume on 5 of pressure support, 5 of PEEP was about 8 to 7 L a minute . OBJECTIVE: VITAL SIGNS: Heart rate is in the 90s, respiratory rate is in the teens, and blood pressure 176/80. LUNGS: Remarkable for coarse equal breath sounds. HEART: Regular rate and rhythm, S1, S2 normal. ABDOMEN: Soft and nontender. EXTREMITIES: Without edema. Intake and output -277. LABORATORY STUDIES: White count 5.1, hemoglobin 8.9, and platelets 57,000. Sodium 140, potassium 3.6, chloride 113, bicarb 24, BUN 32, and creatinine 0.9. IMPRESSION: Status post mechanical ventilation for gastrointestinal bleed, requiring frequent endoscopy. No more endoscopy was planned for the immediate future. I felt he was a candidate for weaning and extubation. This was done successfully. He has been observed in the Critical Care Unit for several hours now. He has had no respiratory distress post extubation. He probably could be considered stable to move out of Critical Care Unit. CRITICAL CARE TIME: 30 minutes. Job ID: [id number]
--- NOTE | 2019-11-16 17:39 | PRG ---
DATE OF SERVICE: 11/16/2019 SUBJECTIVE: Mr. Lima was able to be extubated this morning. Since then, he has not really awakened. He does not follow commands or answer questions, appears encephalopathic. He has not had any bowel movements nor hematemesis. He has remained hemodynamically stable with stable hemoglobin. OBJECTIVE: VITAL SIGNS: Pulse 83, blood pressure 182/65, 99% oxygen saturation on room air, temperature is 98.3. GENERAL: Encephalopathic, responding to internal stimuli. HEART: Regular rate and rhythm. LUNGS: Clear to auscultation bilaterally. ABDOMEN: Soft. Bowel sounds are present. Nontender to palpation throughout. EXTREMITIES: No peripheral edema. LABORATORY STUDIES: Hemoglobin stable at 8.9, WBC down to 5.1, platelets 57. INR is 2.1. Sodium 140, potassium 3.6, BUN 32, creatinine 0.90, glucose 151, total bilirubin stable from admission at 3.2, direct bilirubin 2.2, alkaline phosphatase 76, AST 113, and ALT 40. ASSESSMENT AND PLAN: 1. Upper gastrointestinal bleeding, no further evidence of active bleeding for the past 48 hours. We have performed EGD three times so far this admission with failure to completely clear the gastric fundus due to a large amount of vegetable matter. However, the bleeding seem to have resolved. It does not appear to have come from esophageal varices. Okay to go ahead and discontinue the octreotide. Continue to monitor closely. He is taking some clear liquids. 2. Alcoholic liver disease. The patient has cirrhosis, now with decompensation, evidence of coagulopathy with INR of 2.1, total bilirubin 3.2. He needs to completely quit drinking alcohol. He may be drinking more than he initially reported, given some what appears to be withdrawal here. 3. Encephalopathy. We will go ahead and start lactulose 20 g three times daily. Job ID: [id number]
[2019-11-16] MEDS ORDERED: Labetalol HCl 100 MG/20 ML VIAL SLOW IVP PRN (18:39)
[2019-11-16] MEDS: Lactulose 10 GM/15 ML Oral Solution PR SCH (22:00)
[2019-11-16] MEDS: Lorazepam 2 MG/ML VIAL SLOW IVP PRN (23:14)
[2019-11-17] MEDS: hydrALAZINE 20 MG/ML VIAL SLOW IVP PRN ×2 (03:06→21:19)
[2019-11-17] MEDS: Lorazepam 2 MG/ML VIAL SLOW IVP PRN ×3 (03:06→21:26)
[2019-11-17] MEDS ORDERED: Diazepam 5 MG TAB PO PRN (04:00)
[2019-11-17 04:25] LABS: Anion Gap 10 mmol/L (10-20); BUN (Urea Nitrogen) 23 mg/dL (8.4-25.7); Calc. Creatinine Clearance 110 mL/min (70-130); Calcium 7.4 mg/dL (7.8-10.44); Carbon Dioxide 24 mmol/L (23-31); Chloride 113 mmol/L (98-107); Estimated GFR-MDRD Greater than 90; Glucose 155 mg/dL (80-115); Potassium 3.1 mmol/L (3.5-5.1); Sodium 144 mmol/L (136-145)
[2019-11-17 04:32] LABS: Band 2 % (5-11); Eosinophils 2 % (0-10); Hemoglobin 9.6 g/dL (14.0-18.0); Hypochromia SLIGHT = 6-15 cells (100X) (0-5/hpf); Large Platelets SLIGHT; Lymphocytes 3 % (21-51); MDiff Complete? YES; Mean Corpuscular HGB CONC 31.9 g/dL (32.0-36.0); Mean Corpuscular Hemoglobin 29.9 pg (27.0-31.0); Mean Platelet Volume 9.9 fL (7.4-10.4); Monocytes 9 % (0-10); Neutrophil 83 % (42-75); Platelet Count 64 thou/uL (130-400); Platelet Morphology Comment Appears Decreased; Polychromasia SLIGHT = 2-3 cells (100X) (0-2/hpf); RBC Distribution Width 15.7 % (11.5-14.5); Reactive Lymphocytes 1 % (0-10); Red Blood Cell (RBC) Count 3.21 mill/uL (4.70-6.10); White Blood Cell (WBC) Count 6.7 thou/uL (4.8-10.8)
[2019-11-17] MEDS: cefTRIAXone\\ROCEPHIN 1 GM in Sodium Chloride 0.9% 100 ML IVPB SCH (05:30)
[2019-11-17] MEDS: HumaLOG 300 UNITS/3 ML VIAL SC PRN ×2 (05:36→17:57)
--- NOTE | 2019-11-17 09:10 | RAD ---
PORTABLE CHEST: INDICATIONS: CCU followup. COMPARISON: 11/16/2019 FINDINGS: The lungs show no evidence of focal infiltrate or effusion. The heart and mediastinum are unremarkabl e. Vascularity is upper normal and stable. IMPRESSION: No acute finding or interval change. POS: [facility]
[2019-11-17] MEDS: Pantoprazole 40 MG VIAL IVP SCH ×2 (09:46→21:27)
[2019-11-17] MEDS: Folic Acid 1 MG TAB PO SCH (09:51)
--- NOTE | 2019-11-17 09:55 | PDOC.HOSPP ---
- Subjective Encounter Date: 11/17/19 Encounter Time: 12:30 Subjective: Patient still agitated and not speaking words today, per significant other in the room he appears somewhat calmer today and she thinks he is improving. No vomiting of blood. Patient currently sleeping comfortably. - Objective Vital Signs & Weight: Vital Signs (12 hours) Temp Pulse BP Pulse Ox 11/17/19 08:00 100 11/17/19 07:00 98.4 F 11/17/19 05:26 83 184/67 H 11/17/19 04:00 97.6 F 11/17/19 03:06 83 169/70 H 11/17/19 00:00 98.5 F Weight Admit Weight 197 lb Weight 188 lb 11.451 oz Most Recent Monitor Data Heart Rate from ECG 85 NIBP 171/77 NIBP BP-Mean 108 Respiration from ECG 20 SpO2 97 I&O: 11/16/19 11/17/19 11/18/19 06:59 06:59 06:59 Intake Total 708 475.1 Output Total 985 1445 260 Balance -277 -969.9 -260 Result Diagrams: 11/17/19 03:51 11/17/19 03:51 Additional Labs: Accuchecks 11/17/19 11/16/19 11/16/19 05:39 20:38 16:14 POC Glucose 157 H 118 H 151 H 11/16/19 10:35 POC Glucose 173 H Hospitalist ROS - Review of Systems ROS unobtainable: due to mental status - Medication Medications: Active Medications Generic Name Dose Route Start Last Admin Trade Name Freq PRN Reason Stop Dose Admin Hydralazine HCl 10 mg 11/13/19 05:53 11/17/19 03:06 Apresoline SLOW IVP 10 mg Q6H PRN Administration SBP GREATER THAN 160 Ceftriaxone Sodium 1 gm/ 100 mls @ 200 mls/hr 11/13/19 06:00 11/17/19 05:30 Sodium Chloride IVPB 11/19/19 06:29 100 mls Q24HR JOSE Administration Octreotide Acetate 1,250 mcg/ 251.25 mls @ 10.05 mls/hr 11/13/19 06:00 20:00 Sodium Chloride IVPB 251.25 mls INF JOSE Administration 50 MCG/HR Insulin Glargine 8 units/ 0.08 mls @ 0 mls/hr 11/14/19 09:00 11/16/19 08:24 Miscellaneous Medication SC 0.08 mls QAM JOSE Administration Insulin Human Lispro 0 units 11/13/19 22:53 11/14/19 21:45 Humalog SC 2 unit .BEDTIME SLIDING SC PRN Administration Bedtime Correctional Scale Insulin Human Lispro 0 units 11/14/19 09:42 11/17/19 05:36 Humalog SC 2 unit .MODERATE SLIDING SC PRN Administration Moderate Correctional Scale Labetalol HCl 10 mg 11/16/19 18:39 11/17/19 05:26 Normodyne SLOW IVP 10 mg Q4H PRN Administration SBP Greater Than 180 Lactulose 200 gm 11/16/19 21:00 11/16/19 22:00 Lactulose 10 Gm/15ml Oral Adeline DE 200 gm TID JOSE Administration Lorazepam 1 mg 11/16/19 18:42 11/17/19 03:06 Ativan SLOW IVP 1 mg Q4H PRN Administration Anxiety/Agitation Pantoprazole Sodium 40 mg 11/13/19 21:00 11/16/19 20:37 Protonix IVP 40 mg Q12HR JOSE Administration Polyethylene Glycol 17 gm 11/13/19 09:00 11/16/19 08:24 Miralax PO Not Given DAILY JOSE - Exam General - other findings: sleeping, no distress Heart: RRR, no murmur, no gallops, no rubs Respiratory: CTAB, no wheezes, no rales, no ronchi Gastrointestinal: soft, non-tender, non-distended, normal bowel sounds Extremities: no edema Neurological - other findings: moving all extremities equally, no visible facial droop Psychiatric: not oriented Psychiatric - other findings: not verbal yet Hosp A/P (1) Upper GI bleed Code(s): K92.2 - GASTROINTESTINAL HEMORRHAGE, UNSPECIFIED Status: Acute (2) Acute blood loss anemia Code(s): D62 - ACUTE POSTHEMORRHAGIC ANEMIA Status: Acute (3) Alcoholic cirrhosis of liver Code(s): K70.30 - ALCOHOLIC CIRRHOSIS OF LIVER WITHOUT ASCITES Status: Chronic (4) Acute respiratory failure Code(s): J96.00 - ACUTE RESPIRATORY FAILURE, UNSP W HYPOXIA OR HYPERCAPNIA Status: Acute (5) Alcohol abuse Code(s): F10.10 - ALCOHOL ABUSE, UNCOMPLICATED Status: Acute (6) Acute metabolic encephalopathy Code(s): G93.41 - METABOLIC ENCEPHALOPATHY Status: Acute - Plan H/H stable No bleeding on repeat EGD, plan for EGD as outpatient Patient persistently confused, likely EtOH withdrawl, hopefully will clear over the next couple days. BP up a bit, no significant tachycardia. Concern for possible EtOH withdrawls. I suspect he drinks more than a couple beers per day as reported on admission. Family in room states that he drinks a lot though not sure exact amounts. Will give prn benzos, monitor vitals closely. ASE protocol.
[2019-11-17] MEDS: Magnesium Oxide 400 MG TAB PO SCH (09:59)
[2019-11-17] MEDS: Thiamine 100 MG TAB PO SCH (09:59)
[2019-11-17] MEDS: Multivitamin W/ Minerals 1 TAB PO SCH (09:59)
[2019-11-17] MEDS: Polyethylene Glycol 3350 17 GM Packet PO SCH (09:59)
[2019-11-17] MEDS: Insulin Glargine 8 UNITS in Pre-Filled Syringe 1 EACH SC SCH (10:06)
[2019-11-17] MEDS: Multivitamins, Adult 10 ML, Folic Acid 1 MG, Thiamine HCl 100 MG in Dextrose 5 %-0.45 %... IV SCH (11:37)
[2019-11-17] MEDS: Lactulose 10 GM/15 ML Oral Solution PR SCH ×3 (14:59→21:36)
[2019-11-17] MEDS: Propranolol HCl 20 MG TAB PO SCH ×2 (15:18→15:44)
--- NOTE | 2019-11-17 18:20 | PRG ---
DATE OF SERVICE: 11/17/2019 SUBJECTIVE: Mr. Lima has had no vomiting. No hematemesis. No melena reported. He has been taking some ice and sips of water orally, but remains encephalopathic. No meaningful communication, and somewhat agitated. He has remained hemodynamically stable, moved to the floor. OBJECTIVE: VITAL SIGNS: Temperature 97.9, pulse 76, blood pressure 151/66, and 93% oxygen saturation on room air. GENERAL: The patient is agitated in restraints. He does not meaningfully communicate. HEART: Regular rate and rhythm. LUNGS: Clear to auscultation bilaterally. ABDOMEN: Nondistended. Bowel sounds are present. Soft, nontender to palpation. EXTREMITIES: No peripheral edema. LABORATORY STUDIES: Hemoglobin stable at 9.6, WBC 6.7, platelets 64. INR 2.1. Sodium 144, potassium 3.1, BUN 23, creatinine 0.79, glucose 205. IMAGING STUDIES: Chest x-ray from this morning showed no acute process. ASSESSMENT AND PLAN: 1. Upper gastrointestinal bleeding, with no further evidence of active bleeding for the past 72 hours. We performed esophagogastroduodenoscopy 3 times so far this admission with failure to completely clear the gastric fundus due to a large amount of vegetable matter. However, the bleeding seems to have resolved over the past 3 days. It does not appear to have come from esophageal varices. Octreotide has been discontinued, starting nadolol at a dose of 20 mg q.h.s. He will need to be on a nonselective beta-nesha alf, and in the future, we will titrate dosage to goal resting heart rate 55 to 60. 2. Alcoholic liver disease. The patient has known cirrhosis, now with decompensation, evidence of coagulopathy with INR 2.1, total bilirubin 3.2. He is going to need to completely quit drinking alcohol. 3. Encephalopathy. This appears secondary to alcohol withdrawal, versus hepatic encephalopathy. I agree with giving the lactulose per rectum until he wakes up a bit more. He remains on the ADRIANA protocol. Job ID: [id number]
--- NOTE | 2019-11-17 19:23 | PRG ---
DATE OF SERVICE: 11/17/2019 SUBJECTIVE: Ted Lima is in no distress. OBJECTIVE: VITAL SIGNS: Have been stable. He is afebrile. Heart rates in the 80s, respiratory rates in the teens, oximetry is 97% on room air, blood pressure is mildly elevated at 179/66. LUNGS: Unchanged. HEART: Unchanged. ABDOMEN: Unchanged. LABORATORY DATA: White count 6.7, hemoglobin stable at 9.6, platelets 64,000. Electrolytes are unremarkable except for chloride of 113, which most likely is related to volume resuscitation. IMPRESSION: Gastrointestinal bleed, resolved. He would be a candidate to transfer out of the ICU and if he is stable overnight, transfer home for close outpatient followup by his primary care doctor of his hemoglobin and hematocrit. At some point in time, he probably needs a nuclear medicine emptying study. I suspect he has diabetic gastroparesis based on the issues that were discovered while he was undergoing daily endoscopy. We will sign off on transfer out of the Critical Care Unit. Job ID: [id number]
[2019-11-17] MEDS: Nadolol 40 MG TAB PO SCH (21:37)
[2019-11-18] MEDS: Lorazepam 2 MG/ML VIAL SLOW IVP PRN ×2 (02:40→23:56)
[2019-11-18 06:50] LABS: Anisocytosis SLIGHT = 6-15 cells (100X) (0-5/hpf); Band 12 % (5-11); Eosinophils 2 % (0-10); Hemoglobin 9.5 g/dL (14.0-18.0); Lymphocytes 9 % (21-51); MDiff Complete? YES; Mean Corpuscular HGB CONC 33.2 g/dL (32.0-36.0); Mean Corpuscular Volume 93.5 fL (78.0-98.0); Mean Platelet Volume 10.6 fL (7.4-10.4); Monocytes 5 % (0-10); Neutrophil 71 % (42-75); Platelet Count 65 thou/uL (130-400); Platelet Morphology Comment Appears Decreased; RBC Distribution Width 15.3 % (11.5-14.5); Reactive Lymphocytes 1 % (0-10); Red Blood Cell (RBC) Count 3.06 mill/uL (4.70-6.10); White Blood Cell (WBC) Count 7.1 thou/uL (4.8-10.8)
[2019-11-18] MEDS: Insulin Glargine 8 UNITS in Pre-Filled Syringe 1 EACH SC SCH (09:00)
[2019-11-18] MEDS: Thiamine 100 MG TAB PO SCH (09:01)
[2019-11-18] MEDS: Magnesium Oxide 400 MG TAB PO SCH (09:01)
[2019-11-18] MEDS: Folic Acid 1 MG TAB PO SCH (09:02)
[2019-11-18] MEDS: Pantoprazole 40 MG VIAL IVP SCH ×2 (09:03→20:56)
[2019-11-18] MEDS: Polyethylene Glycol 3350 17 GM Packet PO SCH (09:06)
[2019-11-18] MEDS: Multivitamin W/ Minerals 1 TAB PO SCH (09:06)
[2019-11-18] MEDS: Lactulose 10 GM/15 ML Oral Solution PR SCH ×3 (09:07→21:08)
--- NOTE | 2019-11-18 09:47 | PDOC.HOSPP ---
- Subjective Encounter Date: 11/18/19 Encounter Time: 11:50 Subjective: Patient a bit more responsive this AM. Still quite agitated. Will mumble his name and that he is in hospital, which is better than he was the past 2 days. - Objective Vital Signs & Weight: Vital Signs (12 hours) Temp Pulse Resp BP BP Pulse Ox 11/18/19 07:57 98.4 F 73 18 139/66 92 L 11/18/19 03:31 99.2 F 70 20 157/77 H 96 11/17/19 23:45 99.4 F 75 20 131/61 92 L 11/17/19 22:00 170/66 H Weight Admit Weight 197 lb Weight 184 lb 1.376 oz Most Recent Monitor Data Heart Rate from ECG 84 NIBP 172/68 NIBP BP-Mean 102 Respiration from ECG 19 SpO2 76 I&O: 11/17/19 11/18/19 11/19/19 06:59 06:59 06:59 Intake Total 475.1 2100 Output Total 1445 3015 Balance -969.9 -915 Result Diagrams: 11/18/19 05:14 11/17/19 03:51 Additional Labs: Accuchecks 11/18/19 11/17/19 11/17/19 05:31 20:30 16:51 POC Glucose 158 H 147 H 205 H 11/17/19 11:56 POC Glucose 156 H Hospitalist ROS - Review of Systems ROS unobtainable: due to mental status - Medication Medications: Active Medications Generic Name Dose Route Start Last Admin Trade Name Reuben PRN Reason Stop Dose Admin Folic Acid 1 mg 11/17/19 09:00 11/18/19 09:02 Folvite PO 1 mg DAILY JOSE Administration Hydralazine HCl 10 mg 11/13/19 05:53 11/17/19 21:19 Apresoline SLOW IVP 10 mg Q6H PRN Administration SBP GREATER THAN 160 Insulin Glargine 8 units/ 0.08 mls @ 0 mls/hr 11/14/19 09:00 11/18/19 09:00 Miscellaneous Medication SC 0.08 mls QAM JOSE Administration Multivitamins 10 ml/ Folic 1,011.2 mls @ 200 mls/hr 11/17/19 10:00 11/17/19 11:37 Acid 1 mg/ Thiamine HCl 100 mg IV 1,011.2 mls / Dextrose/Sodium Chloride Q24HR JOSE Administration Insulin Human Lispro 0 units 11/13/19 22:53 11/17/19 17:57 Humalog SC 2 unit .BEDTIME SLIDING SC PRN Administration Bedtime Correctional Scale Insulin Human Lispro 0 units 11/14/19 09:42 11/17/19 05:36 Humalog SC 2 unit .MODERATE SLIDING SC PRN Administration Moderate Correctional Scale Iron/Minerals/Multivitamins 1 tab 11/17/19 09:00 11/18/19 09:06 Theragran M PO 1 tab DAILY JOSE Administration Labetalol HCl 10 mg 11/16/19 18:39 11/17/19 05:26 Normodyne SLOW IVP 10 mg Q4H PRN Administration SBP Greater Than 180 Lactulose 200 gm 11/16/19 21:00 11/18/19 09:07 Lactulose 10 Gm/15ml Oral Adeline IN 200 gm TID JOSE Administration Lorazepam 1 mg 11/16/19 18:42 11/18/19 02:40 Ativan SLOW IVP 1 mg Q4H PRN Administration Anxiety/Agitation Magnesium Oxide 400 mg 11/17/19 09:00 11/18/19 09:01 Magnesium Oxide PO 400 mg DAILY JOSE Administration Nadolol 20 mg 11/17/19 21:00 11/17/19 21:37 Corgard PO 20 mg HS JOSE Administration Pantoprazole Sodium 40 mg 11/13/19 21:00 11/18/19 09:03 Protonix IVP 40 mg Q12HR JOSE Administration Polyethylene Glycol 17 gm 11/13/19 09:00 11/18/19 09:06 Miralax PO 17 gm DAILY JOSE Administration Thiamine HCl 100 mg 11/17/19 09:00 11/18/19 09:01 Thiamine PO 100 mg DAILY JOSE Administration - Exam General - other findings: sleeping, arousable ENT: moist mucosa Heart: RRR, no murmur, no gallops, no rubs Respiratory: CTAB, no wheezes, no rales, no ronchi Gastrointestinal: soft, non-tender, non-distended, normal bowel sounds Neurological - other findings: moving all extremities when stimulated Psychiatric - other findings: not following commands, mostly grunts but was able to give first name Hosp A/P (1) Upper GI bleed Code(s): K92.2 - GASTROINTESTINAL HEMORRHAGE, UNSPECIFIED Status: Acute (2) Acute blood loss anemia Code(s): D62 - ACUTE POSTHEMORRHAGIC ANEMIA Status: Acute (3) Alcoholic cirrhosis of liver Code(s): K70.30 - ALCOHOLIC CIRRHOSIS OF LIVER WITHOUT ASCITES Status: Chronic (4) Acute respiratory failure Code(s): J96.00 - ACUTE RESPIRATORY FAILURE, UNSP W HYPOXIA OR HYPERCAPNIA Status: Acute (5) Alcohol abuse Code(s): F10.10 - ALCOHOL ABUSE, UNCOMPLICATED Status: Acute (6) Acute metabolic encephalopathy Code(s): G93.41 - METABOLIC ENCEPHALOPATHY Status: Acute - Plan H/H stable No bleeding on repeat EGD, plan for EGD as outpatient Patient persistently confused, likely EtOH withdrawl, hopefully will clear over the next couple days. BP up a bit, no significant tachycardia. Concern for possible EtOH withdrawls. I suspect he drinks more than a couple beers per day as reported on admission. Family in room states that he drinks a lot though not sure exact amounts. Will give prn benzos, monitor vitals closely. ASE protocol. Patient transfered to the floor, PT/OT/ST evals. Home or placement once clears more and can assess functional status
[2019-11-18] MEDS: Multivitamins, Adult 10 ML, Folic Acid 1 MG, Thiamine HCl 100 MG in Dextrose 5 %-0.45 %... IV SCH (11:41)
[2019-11-18] MEDS: HumaLOG 300 UNITS/3 ML VIAL SC PRN (18:17)
--- NOTE | 2019-11-18 18:44 | PRG ---
DATE OF SERVICE: 11/18/2019 SUBJECTIVE: Mr. Lima has had some improvement in mental status. He is able to answer simple questions, though still a bit disoriented, still needing to be in restraints, so he does not pull lines and catheters, etc. He is not complaining of any pain. He has had no emesis. He is getting a rectal lactulose. He has remained hemodynamically stable with stable hemoglobin. PHYSICAL EXAMINATION: VITAL SIGNS: Temperature 97.9, pulse 65, blood pressure 161/68, and 97% oxygen saturation on room air. GENERAL: No acute distress. HEART: Regular rate and rhythm. LUNGS: Clear to auscultation bilaterally. ABDOMEN: Soft and nontender to palpation. EXTREMITIES: No peripheral edema. LABORATORY STUDIES: Hemoglobin 9.5, WBC 7.1, platelets 65. Sodium 144, potassium 3.1, BUN 23, creatinine 0.79, glucose 201. ASSESSMENT AND PLAN: 1. Upper gastrointestinal bleeding, with no further evidence of active bleeding for the past 4 days. Cannot rule out that this may have represented variceal bleed, though his esophageal varices were only noted to be small with no stigmata. Continuing nadolol at a dose of 20 mg at bedtime. Continue this into the future, and we will titrate dosage to goal resting heart rate 55 to 60. 2. Alcoholic liver disease. The patient has known cirrhosis, now with decompensation and evidence of coagulopathy with INR 2.1 and total bilirubin 3.2. He has to completely quit drinking alcohol. 3. Encephalopathy. This appears secondary to alcohol withdrawal versus hepatic encephalopathy. Slow improvement over the past couple of days. Continue to get the lactulose enemas tonight. If he is woken up a bit more tomorrow, can switch the lactulose to oral, 20 g three times daily. He remains on the ADRIANA protocol. Job ID: [id number]
[2019-11-18] MEDS: Nadolol 40 MG TAB PO SCH (20:56)
[2019-11-19] MEDS: Lorazepam 2 MG/ML VIAL SLOW IVP PRN (06:10)
[2019-11-19 06:36] LABS: Anion Gap 14 mmol/L (10-20); BUN (Urea Nitrogen) 24 mg/dL (8.4-25.7); Calc. Creatinine Clearance 115 mL/min (70-130); Calcium 7.4 mg/dL (7.8-10.44); Carbon Dioxide 19 mmol/L (23-31); Chloride 114 mmol/L (98-107); Estimated GFR-MDRD Greater than 90; Glucose 121 mg/dL (80-115); Potassium 3.8 mmol/L (3.5-5.1); Sodium 143 mmol/L (136-145)
[2019-11-19 07:09] LABS: Hemoglobin 10.8 g/dL (14.0-18.0); Mean Corpuscular HGB CONC 32.2 g/dL (32.0-36.0); Mean Corpuscular Volume 93.1 fL (78.0-98.0); Mean Platelet Volume 10.4 fL (7.4-10.4); Platelet Count 66 thou/uL (130-400); RBC Distribution Width 15.7 % (11.5-14.5); Red Blood Cell (RBC) Count 3.59 mill/uL (4.70-6.10); White Blood Cell (WBC) Count 9.4 thou/uL (4.8-10.8)
[2019-11-19 08:16] LABS: Band 4 % (5-11); Eosinophils 4 % (0-10); Lymphocytes 10 % (21-51); MDiff Complete? YES; Monocytes 12 % (0-10); Neutrophil 70 % (42-75); Platelet Morphology Comment Appears Decreased; Polychromasia SLIGHT = 2-3 cells (100X) (0-2/hpf)
[2019-11-19] MEDS: Folic Acid 1 MG TAB PO SCH (09:06)
[2019-11-19] MEDS: Magnesium Oxide 400 MG TAB PO SCH (09:06)
[2019-11-19] MEDS: Insulin Glargine 8 UNITS in Pre-Filled Syringe 1 EACH SC SCH (09:06)
[2019-11-19] MEDS: Lactulose 10 GM/15 ML Oral Solution PR SCH (09:07)
[2019-11-19] MEDS: Polyethylene Glycol 3350 17 GM Packet PO SCH (09:07)
[2019-11-19] MEDS: Multivitamin W/ Minerals 1 TAB PO SCH (09:07)
[2019-11-19] MEDS: Thiamine 100 MG TAB PO SCH (09:07)
[2019-11-19] MEDS: Pantoprazole 40 MG VIAL IVP SCH ×2 (09:07→21:12)
[2019-11-19] MEDS: Multivitamins, Adult 10 ML, Folic Acid 1 MG, Thiamine HCl 100 MG in Dextrose 5 %-0.45 %... IV SCH (11:15)
[2019-11-19] MEDS: HumaLOG 300 UNITS/3 ML VIAL SC PRN ×2 (11:24→17:50)
--- NOTE | 2019-11-19 14:14 | PRG ---
DATE OF SERVICE: 11/19/2019 SUBJECTIVE: Mr. Lima was quite agitated again last night, but much more calm today. The mittens have been able to come off. He has been eating a bit of solid food and doing well with this. There has been no further emesis. No melena reported. No fever, tachycardia. OBJECTIVE: VITAL SIGNS: Temperature 98.1, pulse 61, blood pressure 179/76, 97% oxygen saturation on room air. GENERAL: No acute distress. He is able to answer some questions appropriately, but slurs his speech. He does not respond to most questioning. HEART: Regular rate and rhythm. LUNGS: Clear to auscultation bilaterally. ABDOMEN: Nondistended, bowel sounds present. Soft and nontender to palpation. EXTREMITIES: No peripheral edema. LABORATORY STUDIES: Hemoglobin is up to 10.8, WBC 9.4, platelets 66. Sodium 143, potassium 3.8, BUN 24, creatinine 0.75, glucose 165. ASSESSMENT AND PLAN: 1. Upper gastrointestinal bleeding, resolved. No further evidence of bleeding for the past 5 days. Cannot rule out that this may have represented a variceal bleed, though his esophageal varices were only noted to be small with no stigmata. Continue nadolol at a dose of 20 mg at bedtime. In the future, we will titrate dosage to goal resting heart rate 55 to 60. 2. Alcoholic liver disease. The patient has coagulopathy with INR 2.1 and total bilirubin 3.2. It is imperative that he completely quit drinking alcohol. 3. Encephalopathy. This is prolonged following his extubation, appears secondary to alcohol withdrawal versus hepatic encephalopathy. Lactulose was switched to oral today. He remains on ADRIANA protocol. Dr. Hernandes is covering for GI this weekend. Job ID: [id number]
--- NOTE | 2019-11-19 15:19 | PDOC.HOSPP ---
- Subjective Subjective: Seen and examined with family at bedside. Patient woke up this a.m., tolerated breakfast, and even worked with physical therapy and occupational therapy. After breakfast he is somnolent and when I evaluate him he is snoring. Patient has had several doses of benzodiazepine in the night and these medications are contributing to somnolence. No shaking or concerns for withdrawal seizures. Patient with fecal management in place with liquid stool that is dark in color, on lactulose which has been helping with his mentation. Time was given for questions, all answered in detail. - Objective Vital Signs & Weight: Vital Signs (12 hours) Temp Pulse Resp BP BP Pulse Ox 11/19/19 12:43 98.1 F 61 20 179/76 H 97 11/19/19 08:34 98.1 F 84 20 100/49 L 11/19/19 08:00 96 11/19/19 06:07 97 11/19/19 06:06 62 20 97 11/19/19 04:43 97.9 F 61 17 160/70 H 97 Weight Admit Weight 195 lb Weight 185 lb 6.54 oz Most Recent Monitor Data Heart Rate from ECG 84 NIBP 172/68 NIBP BP-Mean 102 Respiration from ECG 19 SpO2 76 I&O: 11/18/19 11/19/19 11/20/19 06:59 06:59 06:59 Intake Total 2100 180 Output Total 3015 330 Balance -915 -150 Result Diagrams: 11/19/19 06:03 11/19/19 06:03 Additional Labs: Accuchecks 11/19/19 11/19/19 11/18/19 11:23 04:43 20:26 POC Glucose 165 H 118 H 167 H 11/18/19 17:26 POC Glucose 201 H Radiology Reviewed by me: Yes Hospitalist ROS - Review of Systems All other systems reviewed; all pertinent +/- noted in HPI/Subj - Medication Medications: Active Medications Generic Name Dose Route Start Last Admin Trade Name Freq PRN Reason Stop Dose Admin Albuterol/Ipratropium 3 ml 11/13/19 05:53 11/19/19 06:06 Duoneb NEB 3 ml [id number] PRN Administration SOB &/or Wheezing Folic Acid 1 mg 11/17/19 09:00 11/19/19 09:06 Folvite PO 1 mg DAILY JOSE Administration Hydralazine HCl 10 mg 11/13/19 05:53 11/17/19 21:19 Apresoline SLOW IVP 10 mg Q6H PRN Administration SBP GREATER THAN 160 Insulin Glargine 8 units/ 0.08 mls @ 0 mls/hr 11/14/19 09:00 11/19/19 09:06 Miscellaneous Medication SC 0.08 mls QAM JOSE Administration Multivitamins 10 ml/ Folic 1,011.2 mls @ 200 mls/hr 11/17/19 10:00 11/19/19 11:15 Acid 1 mg/ Thiamine HCl 100 mg IV 1,011.2 mls / Dextrose/Sodium Chloride Q24HR JOSE Administration Insulin Human Lispro 0 units 11/13/19 22:53 11/18/19 18:17 Humalog SC 2 unit .BEDTIME SLIDING SC PRN Administration Bedtime Correctional Scale Insulin Human Lispro 0 units 11/14/19 09:42 11/19/19 11:24 Humalog SC 2 unit .MODERATE SLIDING SC PRN Administration Moderate Correctional Scale Iron/Minerals/Multivitamins 1 tab 11/17/19 09:00 11/19/19 09:07 Theragran M PO 1 tab DAILY JOSE Administration Labetalol HCl 10 mg 11/16/19 18:39 11/17/19 05:26 Normodyne SLOW IVP 10 mg Q4H PRN Administration SBP Greater Than 180 Lactulose 20 gm 11/19/19 08:00 11/19/19 14:22 Lactulose PO 20 gm TID JOSE Administration Lorazepam 1 mg 11/16/19 18:42 11/19/19 06:10 Ativan SLOW IVP 1 mg Q4H PRN Administration Anxiety/Agitation Magnesium Oxide 400 mg 11/17/19 09:00 11/19/19 09:06 Magnesium Oxide PO 400 mg DAILY JOSE Administration Nadolol 20 mg 11/17/19 21:00 11/18/19 20:56 Corgard PO 20 mg HS JOSE Administration Pantoprazole Sodium 40 mg 11/13/19 21:00 11/19/19 09:07 Protonix IVP 40 mg Q12HR JOSE Administration Polyethylene Glycol 17 gm 11/13/19 09:00 11/19/19 09:07 Miralax PO 17 gm DAILY JOSE Administration Thiamine HCl 100 mg 11/17/19 09:00 11/19/19 09:07 Thiamine PO 100 mg DAILY JOSE Administration - Exam General Appearance: NAD Eye: PERRL ENT: normocephalic atraumatic, moist mucosa Neck: supple, symmetric Heart: no murmur, no gallops, no rubs Respiratory: CTAB, no wheezes, no rales, no ronchi Gastrointestinal: soft, non-tender, normal bowel sounds, no guarding, no rigidity Extremities: 1+ LE edema Skin: no lesions, no rashes Neurological: cranial nerve grossly intact, no focal deficits Musculoskeletal: generalized weakness Psychiatric: somnolent Hosp A/P (1) Acute blood loss anemia Code(s): D62 - ACUTE POSTHEMORRHAGIC ANEMIA Status: Acute (2) Acute metabolic encephalopathy Code(s): G93.41 - METABOLIC ENCEPHALOPATHY Status: Acute (3) Alcohol abuse Code(s): F10.10 - ALCOHOL ABUSE, UNCOMPLICATED Status: Acute (4) Anemia Code(s): D64.9 - ANEMIA, UNSPECIFIED Status: Acute (5) Cirrhosis Code(s): K74.60 - UNSPECIFIED CIRRHOSIS OF LIVER Status: Acute (6) Hematemesis Code(s): K92.0 - HEMATEMESIS Status: Acute (7) Upper GI bleed Code(s): K92.2 - GASTROINTESTINAL HEMORRHAGE, UNSPECIFIED Status: Acute (8) Alcoholic cirrhosis of liver Code(s): K70.30 - ALCOHOLIC CIRRHOSIS OF LIVER WITHOUT ASCITES Status: Chronic - Plan Plan: medical unit gastroenterology consultation, recommendations appreciated lactulose orally to be continued for elevated ammonia causing hepatic encephalopathy fecal management system status post endoscopy, no further episodes of obvious G.I. bleeding transfused packed red blood cells for hemoglobin less than 7.0, platelets less than 10,000 without bleeding or 50,000 if he develops bleeding PPI therapy alcohol withdrawal protocol continue other home medications as able blood pressure control DVT prophylaxis disposition: prognosis guarded
[2019-11-19] MEDS: Nadolol 40 MG TAB PO SCH (21:11)
[2019-11-20 07:05] LABS: Band 2 % (5-11); Eosinophils 4 % (0-10); Hemoglobin 10.5 g/dL (14.0-18.0); INR-International Normal Ratio 1.6; Lymphocytes 4 % (21-51); MDiff Complete? YES; Mean Corpuscular HGB CONC 31.5 g/dL (32.0-36.0); Mean Corpuscular Hemoglobin 29.7 pg (27.0-31.0); Mean Platelet Volume 10.1 fL (7.4-10.4); Monocytes 11 % (0-10); Neutrophil 79 % (42-75); Platelet Count 74 thou/uL (130-400); Platelet Morphology Comment Appears Decreased; Prothrombin Time 18.7 SEC (12.0-14.7); RBC Distribution Width 15.8 % (11.5-14.5); Red Blood Cell (RBC) Count 3.53 mill/uL (4.70-6.10); White Blood Cell (WBC) Count 7.2 thou/uL (4.8-10.8)
[2019-11-20 07:13] LABS: ALT (SGPT) 44 U/L (8-55); AST (SGOT) 91 U/L (5-34); Albumin 2.5 g/dL (3.4-4.8); Alkaline Phosphatase 119 U/L (40-110); Anion Gap 12 mmol/L (10-20); BUN (Urea Nitrogen) 21 mg/dL (8.4-25.7); Bilirubin, Total 7.2 mg/dL (0.2-1.2); Calc. Creatinine Clearance 119 mL/min (70-130); Calcium 7.4 mg/dL (7.8-10.44); Carbon Dioxide 23 mmol/L (23-31); Chloride 111 mmol/L (98-107); Estimated GFR-MDRD Greater than 90; Globulin 3.4 g/dL (2.4-3.5); Glucose 151 mg/dL (80-115); Potassium 3.5 mmol/L (3.5-5.1); Protein, Total 5.9 g/dL (5.8-8.1); Sodium 142 mmol/L (136-145)
[2019-11-20] MEDS: Multivitamin W/ Minerals 1 TAB PO SCH (08:38)
[2019-11-20] MEDS: Folic Acid 1 MG TAB PO SCH (08:38)
[2019-11-20] MEDS: Thiamine 100 MG TAB PO SCH (08:38)
[2019-11-20] MEDS: Pantoprazole 40 MG VIAL IVP SCH ×2 (08:38→19:44)
[2019-11-20] MEDS: Insulin Glargine 8 UNITS in Pre-Filled Syringe 1 EACH SC SCH (08:38)
[2019-11-20] MEDS: Polyethylene Glycol 3350 17 GM Packet PO SCH (08:38)
[2019-11-20] MEDS: Magnesium Oxide 400 MG TAB PO SCH (08:38)
[2019-11-20] MEDS: Multivitamins, Adult 10 ML, Folic Acid 1 MG, Thiamine HCl 100 MG in Dextrose 5 %-0.45 %... IV SCH (08:39)
[2019-11-20] MEDS: HumaLOG 300 UNITS/3 ML VIAL SC PRN ×2 (12:01→15:47)
--- NOTE | 2019-11-20 13:10 | PDOC.HOSPP ---
- Subjective Subjective: More awake and alert. Knows himself, knows he is in [facility], it takes him a while to come up with that he is in the hospital. Patient states that he feels like he has to go to poop, I reminded him that he has a fecal management system in place is family has been reminding him of this daily. Patient does not know the year. Family at bedside, time was given for questions, all answered in detail. - Objective Vital Signs & Weight: Vital Signs (12 hours) Temp Pulse Resp BP BP BP Pulse Ox 11/20/19 11:00 98.6 F 66 20 144/68 H 95 11/20/19 08:00 97.9 F 69 22 H 151/73 H 95 11/20/19 03:38 98.3 F 62 20 148/67 H 94 L Weight Admit Weight 195 lb Weight 186 lb 4.65 oz Most Recent Monitor Data Heart Rate from ECG 84 NIBP 172/68 NIBP BP-Mean 102 Respiration from ECG 19 SpO2 76 I&O: 11/19/19 11/20/19 11/21/19 06:59 06:59 06:59 Intake Total 180 310 Output Total 330 900 Balance -150 -590 Result Diagrams: 11/20/19 06:41 11/20/19 06:41 Additional Labs: Accuchecks 11/20/19 11/20/19 11/19/19 11:06 03:46 21:57 POC Glucose 188 H 148 H 147 H 11/19/19 17:03 POC Glucose 215 H Radiology Reviewed by me: Yes Hospitalist ROS - Review of Systems All other systems reviewed; all pertinent +/- noted in HPI/Subj - Medication Medications: Active Medications Generic Name Dose Route Start Last Admin Trade Name Freq PRN Reason Stop Dose Admin Albuterol/Ipratropium 3 ml 11/13/19 05:53 11/19/19 06:06 Duoneb NEB 3 ml [id number] PRN Administration SOB &/or Wheezing Folic Acid 1 mg 11/17/19 09:00 11/20/19 08:38 Folvite PO 1 mg DAILY JOSE Administration Hydralazine HCl 10 mg 11/13/19 05:53 11/17/19 21:19 Apresoline SLOW IVP 10 mg Q6H PRN Administration SBP GREATER THAN 160 Insulin Glargine 8 units/ 0.08 mls @ 0 mls/hr 11/14/19 09:00 11/20/19 08:38 Miscellaneous Medication SC 0.08 mls QAM JOSE Administration Multivitamins 10 ml/ Folic 1,011.2 mls @ 200 mls/hr 11/17/19 10:00 11/20/19 08:39 Acid 1 mg/ Thiamine HCl 100 mg IV 1,011.2 mls / Dextrose/Sodium Chloride Q24HR JOSE Administration Insulin Human Lispro 0 units 11/13/19 22:53 11/18/19 18:17 Humalog SC 2 unit .BEDTIME SLIDING SC PRN Administration Bedtime Correctional Scale Insulin Human Lispro 0 units 11/14/19 09:42 11/20/19 12:01 Humalog SC 2 unit .MODERATE SLIDING SC PRN Administration Moderate Correctional Scale Iron/Minerals/Multivitamins 1 tab 11/17/19 09:00 11/20/19 08:38 Theragran M PO 1 tab DAILY JOSE Administration Labetalol HCl 10 mg 11/16/19 18:39 11/17/19 05:26 Normodyne SLOW IVP 10 mg Q4H PRN Administration SBP Greater Than 180 Lactulose 20 gm 11/19/19 08:00 11/20/19 08:39 Lactulose PO 20 gm TID JOSE Administration Lorazepam 1 mg 11/16/19 18:42 11/19/19 06:10 Ativan SLOW IVP 1 mg Q4H PRN Administration Anxiety/Agitation Magnesium Oxide 400 mg 11/17/19 09:00 11/20/19 08:38 Magnesium Oxide PO 400 mg DAILY JOSE Administration Nadolol 20 mg 11/17/19 21:00 11/19/19 21:11 Corgard PO 20 mg HS JOSE Administration Pantoprazole Sodium 40 mg 11/13/19 21:00 11/20/19 08:38 Protonix IVP 40 mg Q12HR JOSE Administration Polyethylene Glycol 17 gm 11/13/19 09:00 11/20/19 08:38 Miralax PO 17 gm DAILY JOSE Administration Thiamine HCl 100 mg 11/17/19 09:00 11/20/19 08:38 Thiamine PO 100 mg DAILY JOSE Administration - Exam General Appearance: NAD Eye: PERRL ENT: normocephalic atraumatic, moist mucosa Neck: supple, symmetric, no lymphadenopathy Heart: no murmur, no gallops Respiratory: CTAB, no rales, no ronchi, normal chest expansion, wheezes Gastrointestinal: soft, non-tender, no palpable masses, no guarding, no rigidity Extremities: 1+ LE edema Skin: no lesions, no rashes Neurological: cranial nerve grossly intact, no focal deficits Musculoskeletal: generalized weakness Psychiatric: normal behavior, oriented to person, oriented to place Hosp A/P (1) Acute blood loss anemia Code(s): D62 - ACUTE POSTHEMORRHAGIC ANEMIA Status: Acute (2) Acute metabolic encephalopathy Code(s): G93.41 - METABOLIC ENCEPHALOPATHY Status: Acute (3) Alcohol abuse Code(s): F10.10 - ALCOHOL ABUSE, UNCOMPLICATED Status: Acute (4) Anemia Code(s): D64.9 - ANEMIA, UNSPECIFIED Status: Acute (5) Cirrhosis Code(s): K74.60 - UNSPECIFIED CIRRHOSIS OF LIVER Status: Acute (6) Hematemesis Code(s): K92.0 - HEMATEMESIS Status: Acute (7) Upper GI bleed Code(s): K92.2 - GASTROINTESTINAL HEMORRHAGE, UNSPECIFIED Status: Acute (8) Alcoholic cirrhosis of liver Code(s): K70.30 - ALCOHOLIC CIRRHOSIS OF LIVER WITHOUT ASCITES Status: Chronic - Plan Plan: medical unit gastroenterology consultation, recommendations appreciated lactulose orally to be continued for elevated ammonia causing hepatic encephalopathy fecal management system status post endoscopy, no further episodes of obvious G.I. bleeding transfused packed red blood cells for hemoglobin less than 7.0, platelets less than 10,000 without bleeding or 50,000 if he develops bleeding PPI therapy alcohol withdrawal protocol continue other home medications as able blood pressure control DVT prophylaxis disposition: prognosis guarded
--- NOTE | 2019-11-20 17:08 | PRG ---
DATE OF SERVICE: 11/20/2019 SUBJECTIVE: This is a 64-year-old male, hospitalized with GI bleeding, altered mental status. He is known to have liver cirrhosis and portal hypertension. The patient had EGD by Dr. Ted Wisdom because of bleeding. He has 1+ esophageal varices and mild portal hypertensive gastropathy. A video of the fundus could not be completely visualized . He is actually feeling better today. He is awake, alert, oriented to time, place, and person. Denies abdominal pain, nausea, vomiting. He is tolerating clear liquid. He offers no complaints. PHYSICAL EXAMINATION: VITAL SIGNS: Afebrile, pulse is 71, blood pressure 158/70. CARDIOVASCULAR SYSTEM: First and second heart sounds heard. LUNGS: Clear to auscultation. No wheezing heard. ABDOMEN: Distended. Soft to palpate. Nontender. CLINICAL IMPRESSION: 1. Upper gastrointestinal bleeding - small esophageal varices, portal gastropathy. No other source of bleeding seen. 2. Hepatic encephalopathy, probably on lactulose. 3. Chronic alcoholic liver disease. 4. Portal hypertension. 5. Blood loss anemia. RECOMMENDATION: 1. Continue lactulose. 2. Follow up LFTs and liver tests. 3. Symptomatic treatment. Job ID: [id number]
[2019-11-20] MEDS: Nadolol 40 MG TAB PO SCH (19:44)
[2019-11-21] MEDS: Magnesium Oxide 400 MG TAB PO SCH (08:47)
[2019-11-21] MEDS: Folic Acid 1 MG TAB PO SCH (08:47)
[2019-11-21] MEDS: Insulin Glargine 8 UNITS in Pre-Filled Syringe 1 EACH SC SCH (08:47)
[2019-11-21] MEDS: Multivitamin W/ Minerals 1 TAB PO SCH (08:47)
[2019-11-21] MEDS: Polyethylene Glycol 3350 17 GM Packet PO SCH (08:48)
[2019-11-21] MEDS: Pantoprazole 40 MG VIAL IVP SCH ×2 (08:48→21:07)
[2019-11-21] MEDS: Thiamine 100 MG TAB PO SCH (08:48)
[2019-11-21] MEDS ORDERED: Morphine 2 MG/ML SYRINGE SLOW IVP SCH (10:45)
[2019-11-21] MEDS: Multivitamins, Adult 10 ML, Folic Acid 1 MG, Thiamine HCl 100 MG in Dextrose 5 %-0.45 %... IV SCH (10:52)
--- NOTE | 2019-11-21 12:45 | PDOC.HOSPP ---
- Subjective Subjective: More alert and awake. Clinically improving. Answering questions appropriately. Though he does need some prompting for some questions. More strength. He thinks now he has the strength to get up and often bedpan/to the bedside commode. We will plan to remove his Calderon catheter tomorrow. We will plan to remove the fecal management system today. - Objective Vital Signs & Weight: Vital Signs (12 hours) Temp Pulse Resp BP BP Pulse Ox 11/21/19 11:00 98.2 F 68 20 139/68 94 L 11/21/19 08:00 98.4 F 71 20 143/55 H 143/55 H 95 11/21/19 07:32 95 11/21/19 01:32 98.5 F 65 16 134/66 96 Weight Admit Weight 195 lb Weight 186 lb 4.65 oz Most Recent Monitor Data Heart Rate from ECG 84 NIBP 172/68 NIBP BP-Mean 102 Respiration from ECG 19 SpO2 76 I&O: 11/20/19 11/21/19 11/22/19 06:59 06:59 06:59 Intake Total 310 2530 Output Total 900 1550 Balance -590 980 Result Diagrams: 11/20/19 06:41 11/20/19 06:41 Additional Labs: Accuchecks 11/21/19 11/21/19 11/21/19 11:02 06:12 01:17 POC Glucose 191 H 146 H 183 H 11/20/19 15:37 POC Glucose 207 H Radiology Reviewed by me: Yes Hospitalist ROS - Review of Systems All other systems reviewed; all pertinent +/- noted in HPI/Subj - Medication Medications: Active Medications Generic Name Dose Route Start Last Admin Trade Name Freq PRN Reason Stop Dose Admin Albuterol/Ipratropium 3 ml 11/13/19 05:53 11/19/19 06:06 Duoneb NEB 3 ml [id number] PRN Administration SOB &/or Wheezing Folic Acid 1 mg 11/17/19 09:00 11/21/19 08:47 Folvite PO 1 mg DAILY JOSE Administration Hydralazine HCl 10 mg 11/13/19 05:53 11/17/19 21:19 Apresoline SLOW IVP 10 mg Q6H PRN Administration SBP GREATER THAN 160 Insulin Glargine 8 units/ 0.08 mls @ 0 mls/hr 11/14/19 09:00 11/21/19 08:47 Miscellaneous Medication SC 0.08 mls QAM JOSE Administration Multivitamins 10 ml/ Folic 1,011.2 mls @ 200 mls/hr 11/17/19 10:00 11/21/19 10:52 Acid 1 mg/ Thiamine HCl 100 mg IV 1,011.2 mls / Dextrose/Sodium Chloride Q24HR JOSE Administration Insulin Human Lispro 0 units 11/13/19 22:53 11/18/19 18:17 Humalog SC 2 unit .BEDTIME SLIDING SC PRN Administration Bedtime Correctional Scale Insulin Human Lispro 0 units 11/14/19 09:42 11/20/19 15:47 Humalog SC 4 unit .MODERATE SLIDING SC PRN Administration Moderate Correctional Scale Iron/Minerals/Multivitamins 1 tab 11/17/19 09:00 11/21/19 08:47 Theragran M PO 1 tab DAILY JOSE Administration Labetalol HCl 10 mg 11/16/19 18:39 11/17/19 05:26 Normodyne SLOW IVP 10 mg Q4H PRN Administration SBP Greater Than 180 Lactulose 20 gm 11/19/19 08:00 11/21/19 08:48 Lactulose PO 20 gm TID JOSE Administration Lorazepam 1 mg 11/16/19 18:42 11/19/19 06:10 Ativan SLOW IVP 1 mg Q4H PRN Administration Anxiety/Agitation Magnesium Oxide 400 mg 11/17/19 09:00 11/21/19 08:47 Magnesium Oxide PO 400 mg DAILY JOSE Administration Nadolol 20 mg 11/17/19 21:00 11/20/19 19:44 Corgard PO 20 mg HS JOSE Administration Pantoprazole Sodium 40 mg 11/13/19 21:00 11/21/19 08:48 Protonix IVP 40 mg Q12HR JSOE Administration Polyethylene Glycol 17 gm 11/13/19 09:00 11/21/19 08:48 Miralax PO 17 gm DAILY JOSE Administration Thiamine HCl 100 mg 11/17/19 09:00 11/21/19 08:48 Thiamine PO 100 mg DAILY JOSE Administration - Exam General Appearance: NAD Eye: anicteric sclera ENT: normocephalic atraumatic, moist mucosa Neck: supple, symmetric, no lymphadenopathy Heart: no murmur, no gallops, no rubs Respiratory: CTAB, no wheezes, no rales, no ronchi, normal chest expansion Gastrointestinal: soft, non-tender, no guarding, no rigidity Extremities: no edema Skin: no lesions, no rashes Neurological: cranial nerve grossly intact, no focal deficits Musculoskeletal: generalized weakness Psychiatric: A&O x 3 Hosp A/P (1) Acute blood loss anemia Code(s): D62 - ACUTE POSTHEMORRHAGIC ANEMIA Status: Acute (2) Acute metabolic encephalopathy Code(s): G93.41 - METABOLIC ENCEPHALOPATHY Status: Acute (3) Alcohol abuse Code(s): F10.10 - ALCOHOL ABUSE, UNCOMPLICATED Status: Acute (4) Anemia Code(s): D64.9 - ANEMIA, UNSPECIFIED Status: Acute (5) Cirrhosis Code(s): K74.60 - UNSPECIFIED CIRRHOSIS OF LIVER Status: Acute (6) Hematemesis Code(s): K92.0 - HEMATEMESIS Status: Acute (7) Upper GI bleed Code(s): K92.2 - GASTROINTESTINAL HEMORRHAGE, UNSPECIFIED Status: Acute (8) Alcoholic cirrhosis of liver Code(s): K70.30 - ALCOHOLIC CIRRHOSIS OF LIVER WITHOUT ASCITES Status: Chronic - Plan Plan: medical unit gastroenterology consultation, recommendations appreciated lactulose orally to be continued for elevated ammonia causing hepatic encephalopathy D/c fecal management system D/c calderon tomorrow [facility] meds status post endoscopy, no further episodes of obvious G.I. bleeding transfused packed red blood cells for hemoglobin less than 7.0, platelets less than 10,000 without bleeding or 50,000 if he develops bleeding PPI therapy alcohol withdrawal protocol continue other home medications as able blood pressure control DVT prophylaxis disposition: prognosis guarded
[2019-11-21] MEDS ORDERED: Finasteride 5 MG TAB PO SCH (13:00)
[2019-11-21] MEDS: HumaLOG 300 UNITS/3 ML VIAL SC PRN ×2 (13:05→17:43)
--- NOTE | 2019-11-21 19:26 | PRG ---
DATE OF SERVICE: 11/21/2019 SUBJECTIVE: Mr. Ted Lima is a 64-year-old male with liver cirrhosis, presents with hematemesis. He underwent EGD and was found to have no active bleeding. The patient also has had encephalopathy. His mental status is slowly, but steadily improved. He is more awake, alert, and communicative. He denies any chest pain. No nausea. No vomiting. He is tolerating diet. He had a Bustamante bag which has been removed. He still has a Bustamante catheter. He offers no complaints. PHYSICAL EXAMINATION: VITAL SIGNS: Afebrile, pulse is 68, blood pressure is 139/68. CARDIOVASCULAR SYSTEM: First and second heart sounds normal. LUNGS: He has some bibasilar crepitations, most likely from atelectasis. ABDOMEN: Soft, but distended. Abdomen is nontender. Bowel sounds are active. LABORATORY DATA: Lab data from yesterday: Normal Chem-7, BUN is 21, creatinine 0.73, hemoglobin 10.5, hematocrit 33.2. IMPRESSION: 1. Liver cirrhosis. 2. Hepatic encephalopathy. 3. Upper GI bleeding. 4. Anemia due to blood loss. RECOMMENDATIONS: 1. Continue present treatment. 2. The patient is encouraged to ambulate as much as possible. Job ID: [id number]
[2019-11-21] MEDS: Nadolol 40 MG TAB PO SCH (21:07)
[2019-11-21] MEDS: Tamsulosin HCl 0.4 MG CAP PO SCH (21:08)
[2019-11-22] MEDS: Multivitamin W/ Minerals 1 TAB PO SCH (10:16)
[2019-11-22] MEDS: Thiamine 100 MG TAB PO SCH (10:16)
[2019-11-22] MEDS: Finasteride 5 MG TAB PO SCH (10:17)
[2019-11-22] MEDS: Folic Acid 1 MG TAB PO SCH (10:17)
[2019-11-22] MEDS: Magnesium Oxide 400 MG TAB PO SCH (10:17)
[2019-11-22] MEDS: Polyethylene Glycol 3350 17 GM Packet PO SCH (10:17)
[2019-11-22] MEDS: Pantoprazole 40 MG VIAL IVP SCH ×2 (10:18→21:45)
[2019-11-22] MEDS: Insulin Glargine 8 UNITS in Pre-Filled Syringe 1 EACH SC SCH (10:25)
[2019-11-22] MEDS: Multivitamins, Adult 10 ML, Folic Acid 1 MG, Thiamine HCl 100 MG in Dextrose 5 %-0.45 %... IV SCH (12:42)
[2019-11-22] MEDS: HumaLOG 300 UNITS/3 ML VIAL SC PRN ×2 (12:47→18:50)
--- NOTE | 2019-11-22 17:09 | PDOC.HOSPP ---
- Subjective Subjective: Clinically improving. Mentation improve. Answering questions appropriately. Tolerated fecal management removal. Will attempt Calderon catheter removal. Patient improving on maximal medical therapy. - Objective Vital Signs & Weight: Vital Signs (12 hours) Temp Pulse Resp BP BP Pulse Ox 11/22/19 12:09 98.1 F 66 20 124/60 98 11/22/19 12:00 124/60 11/22/19 08:37 98.1 F 70 20 135/66 95 11/22/19 08:04 95 11/22/19 08:00 135/66 Weight Admit Weight 195 lb Weight 186 lb 4.65 oz Most Recent Monitor Data Heart Rate from ECG 84 NIBP 172/68 NIBP BP-Mean 102 Respiration from ECG 19 SpO2 76 I&O: 11/21/19 11/22/19 11/23/19 06:59 06:59 06:59 Intake Total 2530 480 Output Total 1550 450 Balance 980 30 Result Diagrams: 11/20/19 06:41 11/20/19 06:41 Additional Labs: Accuchecks 11/22/19 11/22/19 11/22/19 16:32 11:24 06:42 POC Glucose 195 H 253 H 183 H 11/21/19 21:07 POC Glucose 217 H Radiology Reviewed by me: Yes Hospitalist ROS - Review of Systems All other systems reviewed; all pertinent +/- noted in HPI/Subj - Medication Medications: Active Medications Generic Name Dose Route Start Last Admin Trade Name Freq PRN Reason Stop Dose Admin Albuterol/Ipratropium 3 ml 11/13/19 05:53 11/22/19 00:57 Duoneb NEB 3 ml [id number] PRN Administration SOB &/or Wheezing Finasteride 5 mg 11/22/19 09:00 11/22/19 10:17 Proscar PO 5 mg DAILY JOSE Administration Folic Acid 1 mg 11/17/19 09:00 11/22/19 10:17 Folvite PO 1 mg DAILY JOSE Administration Hydralazine HCl 10 mg 11/13/19 05:53 11/17/19 21:19 Apresoline SLOW IVP 10 mg Q6H PRN Administration SBP GREATER THAN 160 Insulin Glargine 8 units/ 0.08 mls @ 0 mls/hr 11/14/19 09:00 11/22/19 10:25 Miscellaneous Medication SC 0.08 mls QAM JOSE Administration Multivitamins 10 ml/ Folic 1,011.2 mls @ 200 mls/hr 11/17/19 10:00 11/22/19 12:42 Acid 1 mg/ Thiamine HCl 100 mg IV 1,011.2 mls / Dextrose/Sodium Chloride Q24HR JOSE Administration Insulin Human Lispro 0 units 11/13/19 22:53 11/18/19 18:17 Humalog SC 2 unit .BEDTIME SLIDING SC PRN Administration Bedtime Correctional Scale Insulin Human Lispro 0 units 11/14/19 09:42 11/22/19 12:47 Humalog SC 6 unit .MODERATE SLIDING SC PRN Administration Moderate Correctional Scale Iron/Minerals/Multivitamins 1 tab 11/17/19 09:00 11/22/19 10:16 Theragran M PO 1 tab DAILY JOSE Administration Labetalol HCl 10 mg 11/16/19 18:39 11/17/19 05:26 Normodyne SLOW IVP 10 mg Q4H PRN Administration SBP Greater Than 180 Lactulose 20 gm 11/19/19 08:00 11/22/19 10:23 Lactulose PO 20 gm TID JOSE Administration Lorazepam 1 mg 11/16/19 18:42 11/19/19 06:10 Ativan SLOW IVP 1 mg Q4H PRN Administration Anxiety/Agitation Magnesium Oxide 400 mg 11/17/19 09:00 11/22/19 10:17 Magnesium Oxide PO 400 mg DAILY JOSE Administration Nadolol 20 mg 11/17/19 21:00 11/21/19 21:07 Corgard PO 20 mg HS JOSE Administration Pantoprazole Sodium 40 mg 11/13/19 21:00 11/22/19 10:18 Protonix IVP 40 mg Q12HR JOSE Administration Polyethylene Glycol 17 gm 11/13/19 09:00 11/22/19 10:17 Miralax PO 17 gm DAILY JOSE Administration Sodium Chloride 10 ml 11/16/19 18:58 11/22/19 12:42 Flush - Normal Saline IVF 10 ml PRN PRN Administration Saline Flush Tamsulosin HCl 0.4 mg 11/21/19 21:00 11/21/19 21:08 Flomax PO 0.4 mg HS JOSE Administration Thiamine HCl 100 mg 11/17/19 09:00 01/27/20 10:16 Thiamine PO 100 mg DAILY JOSE Administration - Exam General Appearance: NAD Eye: anicteric sclera ENT: normocephalic atraumatic, moist mucosa Neck: supple, symmetric, no lymphadenopathy Heart: no murmur, no gallops, no rubs Respiratory: CTAB, no wheezes, no rales Gastrointestinal: soft, non-tender, no guarding, no rigidity Extremities: no edema Skin: no lesions, no rashes Neurological: cranial nerve grossly intact, no focal deficits Musculoskeletal: generalized weakness Psychiatric: A&O x 3 Hosp A/P (1) Acute blood loss anemia Code(s): D62 - ACUTE POSTHEMORRHAGIC ANEMIA Status: Acute (2) Acute metabolic encephalopathy Code(s): G93.41 - METABOLIC ENCEPHALOPATHY Status: Acute (3) Alcohol abuse Code(s): F10.10 - ALCOHOL ABUSE, UNCOMPLICATED Status: Acute (4) Anemia Code(s): D64.9 - ANEMIA, UNSPECIFIED Status: Acute (5) Cirrhosis Code(s): K74.60 - UNSPECIFIED CIRRHOSIS OF LIVER Status: Acute (6) Hematemesis Code(s): K92.0 - HEMATEMESIS Status: Acute (7) Upper GI bleed Code(s): K92.2 - GASTROINTESTINAL HEMORRHAGE, UNSPECIFIED Status: Acute (8) Alcoholic cirrhosis of liver Code(s): K70.30 - ALCOHOLIC CIRRHOSIS OF LIVER WITHOUT ASCITES Status: Chronic - Plan Plan: medical unit gastroenterology consultation, recommendations appreciated lactulose orally to be continued for elevated ammonia causing hepatic encephalopathy D/c fecal management system D/c calderon, if unable to void bladder - bladder scan [id number] and if volume greater than 700cc preform straight cath BPH meds status post endoscopy, no further episodes of obvious G.I. bleeding transfused packed red blood cells for hemoglobin less than 7.0, platelets less than 10,000 without bleeding or 50,000 if he develops bleeding PPI therapy alcohol withdrawal protocol continue other home medications as able blood pressure control DVT prophylaxis disposition: prognosis guarded
--- NOTE | 2019-11-22 17:37 | PRG ---
DATE OF SERVICE: 11/22/2019 SUBJECTIVE: Mr. Lima has had no further hematemesis. He has been in the hospital secondary to encephalopathy and deconditioning. He reports he is supposed to get his Bustamante catheter out today, maybe going tomorrow. His daughter is at the bedside. He was drinking beer up until this admission. She states he has been told before to stop. OBJECTIVE: VITAL SIGNS: Temperature 98, pulse 66, blood pressure 120/60. GENERAL: He is alert. He is oriented. He is mildly icteric. LUNGS: Clear. HEART: Regular rhythm. ABDOMEN: Has fluid wave, but no shifting dullness. It is nontender. EXTREMITIES: No clubbing, cyanosis, or edema. LABORATORY DATA: None today except for a glucose of 195. ASSESSMENT: 1. Gastrointestinal bleed, resolved. 2. Alcohol abuse, ongoing. 3. Deconditioning. RECOMMENDATIONS: 1. Alcohol avoidance. I told the patient if he continues to drink, he will likely with liver related disease within several months to years. 2. Encephalopathy, improved. 3. We would avoid sedatives. We would stop his Valium. We will continue lactulose. We would stop Ativan p.r.n. 4. Could convert vitamins to p.o. 5. Dr. Wisdom will return tomorrow. Job ID: [id number]
[2019-11-22] MEDS: Nadolol 40 MG TAB PO SCH (21:45)
[2019-11-22] MEDS: Tamsulosin HCl 0.4 MG CAP PO SCH (21:46)
[2019-11-23] MEDS: Finasteride 5 MG TAB PO SCH (09:40)
[2019-11-23] MEDS: Folic Acid 1 MG TAB PO SCH (09:43)
[2019-11-23] MEDS: Thiamine 100 MG TAB PO SCH (09:43)
[2019-11-23] MEDS: Polyethylene Glycol 3350 17 GM Packet PO SCH (09:45)
[2019-11-23] MEDS: Multivitamin W/ Minerals 1 TAB PO SCH (09:45)
[2019-11-23] MEDS: Magnesium Oxide 400 MG TAB PO SCH (09:45)
[2019-11-23] MEDS: Insulin Glargine 8 UNITS in Pre-Filled Syringe 1 EACH SC SCH (09:46)
[2019-11-23] MEDS: Pantoprazole 40 MG VIAL IVP SCH ×2 (09:49→20:39)
[2019-11-23] MEDS ORDERED: metFORMIN 500 MG TAB PO SCH (10:00)
[2019-11-23] MEDS: Multivitamins, Adult 10 ML, Folic Acid 1 MG, Thiamine HCl 100 MG in Dextrose 5 %-0.45 %... IV SCH (11:53)
--- NOTE | 2019-11-23 13:00 | PRG ---
DATE OF SERVICE: 11/23/2019 SUBJECTIVE: Mr. Lima did better over the weekend with regard to his mental status. He woke up and is now more alert. He denies any mental fog. He has had no further evidence of any overt bleeding, has remained hemodynamically stable. He is tolerating his diet. OBJECTIVE: VITAL SIGNS: Temperature 98.1, pulse 66, blood pressure 115/56, and 97% oxygen saturation on room air. GENERAL: No acute distress. HEART: Regular rate and rhythm. LUNGS: Clear to auscultation bilaterally. ABDOMEN: Nondistended. Bowel sounds present. Soft. Nontender to palpation. EXTREMITIES: No peripheral edema. LABORATORY DATA: Hemoglobin A1c is 6.0. Glucose 167. ASSESSMENT/PLAN: 1. Upper gastrointestinal bleeding. No further evidence of bleeding over the past week. He does have small esophageal varices. No plan for repeat EGD this admission. He needs to continue on the nonselective beta-nesha, currently on nadolol 20 mg at bedtime. 2. Alcoholic liver disease. I again had a long discussion with the patient that he needs to completely abstain from all alcohol going forward. His coagulopathy has improved a bit with INR down to 1.6, bilirubin 3.2. 3. Encephalopathy, finally appears to be resolving. He should continue on oral lactulose 2 to 3 times daily, titrate it to 2 to 3 loose bowel movements per day. GI will sign off, and we will plan to see him back in clinic in the next 2 to 3 weeks. Please call back in the meantime with any questions or concerns. Job ID: [id number]
--- NOTE | 2019-11-23 14:44 | PDOC.HOSPP ---
- Subjective Subjective: Seen and examined. His mentation is improved. He has tolerated removal of his fecal management system and is Calderon catheter are now moving his bowels and urinating without difficulties. He is ambulating the halls with assistance of physical therapist. Patient's family have some reserves about him not being ready for discharge and I brought up the possibility of rehabilitation placement. Patient and his family will discuss rehabilitation placement, though if he continues to clinically improve and his family believe that they can care for him we may plan for discharge home in the next coming days. - Objective Vital Signs & Weight: Vital Signs (12 hours) Temp Pulse Pulse Resp BP BP Pulse Ox 11/23/19 09:57 66 115/56 L 11/23/19 08:20 98.1 F 66 18 115/56 L 97 11/23/19 08:00 97 Pulse Ox 11/23/19 09:57 97 11/23/19 08:20 11/23/19 08:00 Weight Admit Weight 195 lb Weight 186 lb 4.65 oz Most Recent Monitor Data Heart Rate from ECG 84 NIBP 172/68 NIBP BP-Mean 102 Respiration from ECG 19 SpO2 76 I&O: 11/22/19 11/23/19 11/24/19 06:59 06:59 06:59 Intake Total 480 Output Total 450 750 Balance 30 -750 Result Diagrams: 11/20/19 06:41 11/20/19 06:41 Additional Labs: Accuchecks 11/23/19 11/23/19 11/22/19 11:43 05:19 20:58 POC Glucose 167 H 138 H 165 H 11/22/19 16:32 POC Glucose 195 H Radiology Reviewed by me: Yes Hospitalist ROS - Review of Systems All other systems reviewed; all pertinent +/- noted in HPI/Subj - Medication Medications: Active Medications Generic Name Dose Route Start Last Admin Trade Name Freq PRN Reason Stop Dose Admin Albuterol/Ipratropium 3 ml 11/13/19 05:53 11/22/19 00:57 Duoneb NEB 3 ml [id number] PRN Administration SOB &/or Wheezing Finasteride 5 mg 11/22/19 09:00 11/23/19 09:40 Proscar PO 5 mg DAILY JOSE Administration Folic Acid 1 mg 11/17/19 09:00 11/23/19 09:43 Folvite PO 1 mg DAILY JOSE Administration Hydralazine HCl 10 mg 11/13/19 05:53 11/17/19 21:19 Apresoline SLOW IVP 10 mg Q6H PRN Administration SBP GREATER THAN 160 Insulin Glargine 8 units/ 0.08 mls @ 0 mls/hr 11/14/19 09:00 11/23/19 09:46 Miscellaneous Medication SC 0.08 mls QAM JOSE Administration Insulin Human Lispro 0 units 11/13/19 22:53 11/18/19 18:17 Humalog SC 2 unit .BEDTIME SLIDING SC PRN Administration Bedtime Correctional Scale Insulin Human Lispro 0 units 11/14/19 09:42 11/22/19 18:50 Humalog SC 2 unit .MODERATE SLIDING SC PRN Administration Moderate Correctional Scale Iron/Minerals/Multivitamins 1 tab 11/17/19 09:00 11/23/19 09:45 Theragran M PO Not Given DAILY JOSE Labetalol HCl 10 mg 11/16/19 18:39 11/17/19 05:26 Normodyne SLOW IVP 10 mg Q4H PRN Administration SBP Greater Than 180 Lactulose 20 gm 11/19/19 08:00 11/23/19 09:45 Lactulose PO Not Given TID [facility] Magnesium Oxide 400 mg 11/17/19 09:00 11/23/19 09:45 Magnesium Oxide PO Not Given DAILY JOSE Nadolol 20 mg 11/17/19 21:00 11/22/19 21:45 Corgard PO 20 mg HS JOSE Administration Pantoprazole Sodium 40 mg 11/13/19 21:00 11/23/19 09:49 Protonix IVP 40 mg Q12HR JOSE Administration Polyethylene Glycol 17 gm 11/13/19 09:00 11/23/19 09:45 Miralax PO Not Given DAILY JOSE Sodium Chloride 10 ml 11/16/19 18:58 11/23/19 09:46 Flush - Normal Saline IVF 10 ml PRN PRN Administration Saline Flush Tamsulosin HCl 0.4 mg 11/21/19 21:00 11/22/19 21:46 Flomax PO 0.4 mg HS JOSE Administration Thiamine HCl 100 mg 11/17/19 09:00 11/23/19 09:43 Thiamine PO 100 mg DAILY JOSE Administration - Exam General Appearance: NAD, awake alert Eye: anicteric sclera ENT: normocephalic atraumatic, moist mucosa Neck: supple, symmetric, no lymphadenopathy Heart: no murmur, no gallops, no rubs Respiratory: CTAB, no wheezes, no rales, no ronchi, normal chest expansion Gastrointestinal: soft, non-tender, non-distended, no guarding, no rigidity Extremities: no clubbing, no edema Skin: no rashes Neurological: cranial nerve grossly intact, no focal deficits Musculoskeletal: generalized weakness Psychiatric: normal affect, A&O x 3 Hosp A/P (1) Acute blood loss anemia Code(s): D62 - ACUTE POSTHEMORRHAGIC ANEMIA Status: Acute (2) Acute metabolic encephalopathy Code(s): G93.41 - METABOLIC ENCEPHALOPATHY Status: Acute (3) Alcohol abuse Code(s): F10.10 - ALCOHOL ABUSE, UNCOMPLICATED Status: Acute (4) Anemia Code(s): D64.9 - ANEMIA, UNSPECIFIED Status: Acute (5) Cirrhosis Code(s): K74.60 - UNSPECIFIED CIRRHOSIS OF LIVER Status: Acute (6) Hematemesis Code(s): K92.0 - HEMATEMESIS Status: Acute (7) Upper GI bleed Code(s): K92.2 - GASTROINTESTINAL HEMORRHAGE, UNSPECIFIED Status: Acute (8) Alcoholic cirrhosis of liver Code(s): K70.30 - ALCOHOLIC CIRRHOSIS OF LIVER WITHOUT ASCITES Status: Chronic - Plan Plan: medical unit gastroenterology consultation, recommendations appreciated alcohol abstinence lactulose orally to be continued for elevated ammonia causing hepatic encephalopathy Nadaolol PPI therapy status post endoscopy, no further episodes of obvious G.I. bleeding transfused packed red blood cells for hemoglobin less than 7.0, platelets less than 10,000 without bleeding or 50,000 if he develops bleeding D/c fecal management system D/c calderon, if unable to void bladder - bladder scan [id number] and if volume greater than 700cc preform straight cath BPH meds continue other home medications as able blood pressure control DVT prophylaxis Continue PT/ OT daily disposition: D/c home with home health vs Rehab in the next 24-48 hours. Patients family do not think they are able to care for him in his current condition.
[2019-11-23] MEDS: metFORMIN 500 MG TAB PO SCH (17:43)
[2019-11-23] MEDS: HumaLOG 300 UNITS/3 ML VIAL SC PRN (17:44)
[2019-11-23] MEDS: Nadolol 40 MG TAB PO SCH (20:38)
[2019-11-23] MEDS: Tamsulosin HCl 0.4 MG CAP PO SCH (20:38)
[2019-11-23] MEDS ORDERED: Atorvastatin Calcium 10 MG TAB PO SCH (21:00)
[2019-11-24] MEDS: Folic Acid 1 MG TAB PO SCH (07:57)
[2019-11-24] MEDS: Finasteride 5 MG TAB PO SCH (07:57)
[2019-11-24] MEDS: Magnesium Oxide 400 MG TAB PO SCH (07:57)
[2019-11-24] MEDS: Lisinopril 2.5 MG TAB PO SCH (07:57)
[2019-11-24] MEDS: metFORMIN 500 MG TAB PO SCH ×2 (07:57→17:01)
[2019-11-24] MEDS: Thiamine 100 MG TAB PO SCH (07:57)
[2019-11-24] MEDS: Multivitamin W/ Minerals 1 TAB PO SCH (07:58)
[2019-11-24] MEDS: Pantoprazole 40 MG VIAL IVP SCH (08:00)
[2019-11-24] MEDS: Insulin Glargine 8 UNITS in Pre-Filled Syringe 1 EACH SC SCH (08:00)
[2019-11-24] MEDS: Polyethylene Glycol 3350 17 GM Packet PO SCH (08:02)
--- NOTE | 2019-11-24 13:39 | PDOC.HOSPP ---
- Subjective Encounter Date: 11/24/19 Encounter Time: 13:38 Subjective: Patient seen and examined for Encephalopathy/GI bleeding. Mentation improving. No new focal deficits or GI bleeding. No new complaints. No overnight events - Objective Vital Signs & Weight: Vital Signs (12 hours) Temp Pulse Resp BP Pulse Ox 11/24/19 08:15 98.1 F 63 16 118/61 99 11/24/19 08:00 99 Weight Admit Weight 195 lb Weight 186 lb 4.65 oz Most Recent Monitor Data Heart Rate from ECG 84 NIBP 172/68 NIBP BP-Mean 102 Respiration from ECG 19 SpO2 76 I&O: 11/23/19 11/24/19 11/25/19 06:59 06:59 06:59 Output Total 750 Balance -750 Result Diagrams: 11/20/19 06:41 11/20/19 06:41 Additional Labs: Accuchecks 11/24/19 11/24/19 11/23/19 11:42 03:50 20:41 POC Glucose 186 H 157 H 178 H 11/23/19 16:37 POC Glucose 223 H Radiology Reviewed by me: Yes (CXR - neg) Hospitalist ROS - Review of Systems Respiratory: denies: cough, dry, shortness of breath, hemoptysis, SOB with excertion, pleuritic pain, sputum, wheezing, other Cardiovascular: denies: chest pain, palpitations, orthopnea, paroxysmal noc. dyspnea, edema, light headedness, other - Medication Medications: Active Medications Generic Name Dose Route Start Last Admin Trade Name Freq PRN Reason Stop Dose Admin Albuterol/Ipratropium 3 ml 11/13/19 05:53 11/22/19 00:57 Duoneb NEB 3 ml [id number] PRN Administration SOB &/or Wheezing Atorvastatin Calcium 10 mg 11/23/19 21:00 11/23/19 20:38 Lipitor PO 10 mg HS JOSE Administration Finasteride 5 mg 11/22/19 09:00 11/24/19 07:57 Proscar PO 5 mg DAILY JOSE Administration Folic Acid 1 mg 11/17/19 09:00 11/24/19 07:57 Folvite PO 1 mg DAILY JOSE Administration Hydralazine HCl 10 mg 11/13/19 05:53 11/17/19 21:19 Apresoline SLOW IVP 10 mg Q6H PRN Administration SBP GREATER THAN 160 Insulin Glargine 8 units/ 0.08 mls @ 0 mls/hr 11/14/19 09:00 11/24/19 08:00 Miscellaneous Medication SC 0.08 mls QAM JOSE Administration Insulin Human Lispro 0 units 11/13/19 22:53 11/18/19 18:17 Humalog SC 2 unit .BEDTIME SLIDING SC PRN Administration Bedtime Correctional Scale Insulin Human Lispro 0 units 11/14/19 09:42 11/23/19 17:44 Humalog SC 4 unit .MODERATE SLIDING SC PRN Administration Moderate Correctional Scale Iron/Minerals/Multivitamins 1 tab 11/17/19 09:00 11/24/19 07:58 Theragran M PO 1 tab DAILY JOSE Administration Labetalol HCl 10 mg 11/16/19 18:39 11/17/19 05:26 Normodyne SLOW IVP 10 mg Q4H PRN Administration SBP Greater Than 180 Lactulose 20 gm 11/19/19 08:00 11/24/19 07:59 Lactulose PO 20 gm TID JOSE Administration Lisinopril 2.5 mg 11/24/19 09:00 11/24/19 07:57 Zestril PO 2.5 mg DAILY JOSE Administration Magnesium Oxide 400 mg 11/17/19 09:00 11/24/19 07:57 Magnesium Oxide PO 400 mg DAILY JOSE Administration Metformin HCl 500 mg 11/23/19 17:00 11/24/19 07:57 Glucophage PO 500 mg BID-WM JOSE Administration Nadolol 20 mg 11/17/19 21:00 11/23/19 20:38 Corgard PO 20 mg HS JOSE Administration Polyethylene Glycol 17 gm 11/13/19 09:00 11/24/19 08:02 Miralax PO Not Given DAILY JOSE Sodium Chloride 10 ml 11/16/19 18:58 11/23/19 09:46 Flush - Normal Saline IVF 10 ml PRN PRN Administration Saline Flush Tamsulosin HCl 0.4 mg 11/21/19 21:00 11/23/19 20:38 Flomax PO 0.4 mg HS JOSE Administration Thiamine HCl 100 mg 11/17/19 09:00 11/24/19 07:57 Thiamine PO 100 mg DAILY JOSE Administration - Exam General Appearance: NAD Heart: RRR, no gallops Respiratory: no wheezes, no rales, no ronchi Gastrointestinal: non-tender, non-distended, normal bowel sounds Extremities: no cyanosis Hosp A/P - Plan DVT proph w/SCDs UGI bleed Acute blood loss Anemia s/p 4 units PRBC Chronic Hep C with Chronic cirrhosis with thrombocytopenia/coagulopathy/ esophageal varices Chronic alcoholism Type 2 [place] - POA - resolved Hypokalemia/Hyponatremia Alcoholic hepatitis - improving Moderate PEM HTN Swallow dysfunction DM2 PLAN: Change PPI to PO Await placement DC Statins Cont Insulin Cont other meds as above
[2019-11-24] MEDS ORDERED: Acetaminophen 325 MG TAB PO PRN (13:41)
[2019-11-24] MEDS: Nadolol 40 MG TAB PO SCH (20:25)
[2019-11-24] MEDS: Tamsulosin HCl 0.4 MG CAP PO SCH (20:26)
[2019-11-25 06:09] LABS: ALT (SGPT) 52 U/L (8-55); AST (SGOT) 130 U/L (5-34); Alkaline Phosphatase 122 U/L (40-110); Anion Gap 10 mmol/L (10-20); BUN (Urea Nitrogen) 11 mg/dL (8.4-25.7); Calc. Creatinine Clearance 132 mL/min (70-130); Calcium 7.2 mg/dL (7.8-10.44); Carbon Dioxide 22 mmol/L (23-31); Chloride 104 mmol/L (98-107); Estimated GFR-MDRD Greater than 90; Globulin 3.3 g/dL (2.4-3.5); Glucose 130 mg/dL (80-115); Magnesium 1.5 mg/dL (1.6-2.6); Phosphorus 2.3 mg/dL (2.3-4.7); Potassium 3.7 mmol/L (3.5-5.1); Protein, Total 5.3 g/dL (5.8-8.1); Sodium 132 mmol/L (136-145)
[2019-11-25 06:28] LABS: #Basophils 0.1 thou/uL (0.0-0.2); #Eosinphils 0.2 thou/uL (0.0-0.7); #Lymphocytes 0.8 thou/uL (1.20-3.40); #Monocytes 0.9 thou/uL (0.11-0.59); #Neutrophils 4.6 thou/uL (1.40-6.50); %Basophils 1.5 % (0.0-1.0); %Eosinophils 3.1 % (0.0-10.0); %Lymphocytes 12.2 % (21.0-51.0); %Monocytes 13.4 % (0.0-10.0); %Neutrophils 69.7 % (42.0-75.0); Hemoglobin 9.8 g/dL (14.0-18.0); Mean Corpuscular HGB CONC 31.6 g/dL (32.0-36.0); Mean Corpuscular Hemoglobin 29.5 pg (27.0-31.0); Mean Corpuscular Volume 93.4 fL (78.0-98.0); Mean Platelet Volume 11.9 fL (7.4-10.4); Platelet Count 66 thou/uL (130-400); RBC Distribution Width 16.4 % (11.5-14.5); Red Blood Cell (RBC) Count 3.31 mill/uL (4.70-6.10); White Blood Cell (WBC) Count 6.6 thou/uL (4.8-10.8)
[2019-11-25 06:56] VITALS: BMI 29.9
[2019-11-25] MEDS: Multivitamin W/ Minerals 1 TAB PO SCH (08:19)
[2019-11-25] MEDS: Lisinopril 2.5 MG TAB PO SCH (08:19)
[2019-11-25] MEDS: Magnesium Oxide 400 MG TAB PO SCH ×3 (08:19→21:26)
[2019-11-25] MEDS: metFORMIN 500 MG TAB PO SCH ×2 (08:19→16:40)
[2019-11-25] MEDS: Folic Acid 1 MG TAB PO SCH (08:19)
[2019-11-25] MEDS: Finasteride 5 MG TAB PO SCH (08:19)
[2019-11-25] MEDS: Thiamine 100 MG TAB PO SCH (08:19)
[2019-11-25] MEDS: Polyethylene Glycol 3350 17 GM Packet PO SCH (08:20)
[2019-11-25] MEDS: Insulin Glargine 8 UNITS in Pre-Filled Syringe 1 EACH SC SCH (08:53)
[2019-11-25] MEDS: HumaLOG 300 UNITS/3 ML VIAL SC PRN (17:21)
--- NOTE | 2019-11-25 19:16 | PDOC.HOSPP ---
- Subjective Encounter Date: 11/25/19 Encounter Time: 17:00 Subjective: Patient seen and examined for Encephalopathy. No new GI bleeding. No new complaints. No overnight events - Objective Vital Signs & Weight: Vital Signs (12 hours) Temp Pulse Resp BP BP BP Pulse Ox 11/25/19 17:21 98 F 57 L 16 148/76 H 99 11/25/19 11:00 97.9 F 60 14 127/71 98 11/25/19 08:19 63 127/65 97 11/25/19 08:00 98.2 F 66 16 127/65 97 Weight Admit Weight 195 lb Weight 186 lb Most Recent Monitor Data Heart Rate from ECG 84 NIBP 172/68 NIBP BP-Mean 102 Respiration from ECG 19 SpO2 76 Result Diagrams: 11/25/19 06:14 11/25/19 05:23 Additional Labs: Accuchecks 11/25/19 11/25/19 11/25/19 17:18 11:59 04:47 POC Glucose 158 H 132 H 143 H 11/25/19 00:50 POC Glucose 153 H Hospitalist ROS - Review of Systems Respiratory: denies: cough, dry, shortness of breath, hemoptysis, SOB with excertion, pleuritic pain, sputum, wheezing, other Cardiovascular: denies: chest pain, palpitations, orthopnea, paroxysmal noc. dyspnea, edema, light headedness, other - Medication Medications: Active Medications Generic Name Dose Route Start Last Admin Trade Name Freq PRN Reason Stop Dose Admin Albuterol/Ipratropium 3 ml 11/13/19 05:53 11/22/19 00:57 Duoneb NEB 3 ml [id number] PRN Administration SOB &/or Wheezing Finasteride 5 mg 11/22/19 09:00 11/25/19 08:19 Proscar PO 5 mg DAILY JOSE Administration Folic Acid 1 mg 11/17/19 09:00 11/25/19 08:19 Folvite PO 1 mg DAILY JOSE Administration Hydralazine HCl 10 mg 11/13/19 05:53 11/17/19 21:19 Apresoline SLOW IVP 10 mg Q6H PRN Administration SBP GREATER THAN 160 Insulin Glargine 8 units/ 0.08 mls @ 0 mls/hr 11/14/19 09:00 11/25/19 08:53 Miscellaneous Medication SC 0.08 mls QAM JOSE Administration Insulin Human Lispro 0 units 11/13/19 22:53 11/18/19 18:17 Humalog SC 2 unit .BEDTIME SLIDING SC PRN Administration Bedtime Correctional Scale Insulin Human Lispro 0 units 11/14/19 09:42 11/25/19 17:21 Humalog SC 2 unit .MODERATE SLIDING SC PRN Administration Moderate Correctional Scale Iron/Minerals/Multivitamins 1 tab 11/17/19 09:00 11/25/19 08:19 Theragran M PO 1 tab DAILY JOSE Administration Labetalol HCl 10 mg 11/16/19 18:39 11/17/19 05:26 Normodyne SLOW IVP 10 mg Q4H PRN Administration SBP Greater Than 180 Lactulose 20 gm 11/19/19 08:00 11/25/19 16:45 Lactulose PO 20 gm TID JOSE Administration Lisinopril 2.5 mg 11/24/19 09:00 11/25/19 08:19 Zestril PO 2.5 mg DAILY JOSE Administration Magnesium Oxide 400 mg 11/25/19 09:00 11/25/19 09:18 Magnesium Oxide PO Not Given BID JOSE Metformin HCl 500 mg 11/23/19 17:00 11/25/19 16:40 Glucophage PO 500 mg BID-WM JOSE Administration Nadolol 20 mg 11/17/19 21:00 11/24/19 20:25 Corgard PO 20 mg HS JOSE Administration Pantoprazole Sodium 40 mg 11/24/19 21:00 11/25/19 08:19 Protonix PO 40 mg BID JOSE Administration Sodium Chloride 10 ml 11/16/19 18:58 11/23/19 09:46 Flush - Normal Saline IVF 10 ml PRN PRN Administration Saline Flush Tamsulosin HCl 0.4 mg 11/21/19 21:00 11/24/19 20:26 Flomax PO 0.4 mg HS JOSE Administration Thiamine HCl 100 mg 11/17/19 09:00 11/25/19 08:19 Thiamine PO 100 mg DAILY JOSE Administration - Exam General Appearance: NAD Heart: RRR, no gallops Respiratory: no wheezes, no rales, no ronchi Gastrointestinal: non-tender, non-distended, normal bowel sounds Extremities: no cyanosis, no clubbing Hosp A/P - Plan DVT proph w/SCDs UGI bleed Acute blood loss Anemia s/p 4 units PRBC Chronic Hep C with Chronic cirrhosis with thrombocytopenia/coagulopathy/ esophageal varices Chronic alcoholism Type 2 [place] - POA - resolved Hypokalemia/Hyponatremia/Hypomagnesium Alcoholic hepatitis - improving Moderate PEM HTN Swallow dysfunction DM2 PLAN: Cont PPI Replace Magnesium Cont other meds as above Await placement
[2019-11-25] MEDS: Nadolol 40 MG TAB PO SCH (21:26)
[2019-11-25] MEDS: Tamsulosin HCl 0.4 MG CAP PO SCH (21:29)
[2019-11-26] MEDS: metFORMIN 500 MG TAB PO SCH (09:24)
[2019-11-26] MEDS: Finasteride 5 MG TAB PO SCH (09:25)
[2019-11-26] MEDS: Folic Acid 1 MG TAB PO SCH (09:25)
[2019-11-26] MEDS: Insulin Glargine 8 UNITS in Pre-Filled Syringe 1 EACH SC SCH (09:26)
[2019-11-26] MEDS: Magnesium Oxide 400 MG TAB PO SCH (09:27)
[2019-11-26] MEDS: Multivitamin W/ Minerals 1 TAB PO SCH (09:27)
[2019-11-26] MEDS: Lisinopril 2.5 MG TAB PO SCH (09:27)
[2019-11-26] MEDS: Thiamine 100 MG TAB PO SCH (09:29)
[2019-11-26 12:27] VITALS: BP 149/70; TEMP 98.5
--- NOTE | 2019-11-26 14:34 | PDOC.EVN ---
Event Note - Event Note Event Note: Patient will benefit from rolling walker due to gait imbalance.
--- NOTE | 2019-11-26 19:20 | DIS ---
DATE OF ADMISSION: 11/13/2019 DATE OF DISCHARGE: 11/26/2019 DISCHARGE DISPOSITION: Home with home health care. The patient was seen and examined on the day of discharge. Denies any new complaints. Please note that rehab was declined on the day of discharge. BRIEF HOSPITAL COURSE: The patient is a 64-year-old male with chronic alcoholism with chronic hepatitis C, presented to the hospital with hematemesis and melena of one day duration. He had 8 episodes of bright red blood vomiting along with lots of black melenic diarrhea. The patient also has history of esophageal varices. He was monitored on the telemetry unit. He was kept n.p.o. and was started on octreotide along with PPIs and antibiotics for spontaneous bacterial peritonitis prophylaxis. His blood counts were monitored closely. His hemoglobin dropped to 6.9, requiring blood transfusion. He had a total of 4 units of PRBC and 4 units of FFP transfused. He underwent EGD on 11/13/2019, 11/14/2019, as well as 11/15/2019. He was later transferred to the medical floor. He remained in the hospital for outpatient rehab placement. However, today, we found out that rehab declined the patient. The patient and the family had agreed to go home with home health care. He was advised to be compliant with nadolol and PPIs. FINAL DIAGNOSES: 1. Upper gastrointestinal bleeding secondary to esophageal viruses. 2. Acute blood loss anemia status post 4 units of PRBC. 3. Coagulopathy requiring 4 units of PRBC. 4. Chronic hepatitis C with cirrhosis, thrombocytopenia, coagulopathy, and esophageal varices. 5. Chronic alcoholism. The patient was counseled. 6. Type 2 myocardial infarction, resolved. 7. Hypokalemia. 8. Hyponatremia. 9. Hypomagnesemia. 10. Abnormal LFTs, probably secondary to alcoholic hepatitis, improving. 11. Moderate protein energy malnutrition. 12. Hypertension. 13. Swallow dysfunction, on mechanical soft diet. 14. Diabetes mellitus type 2. DISCHARGE MEDICATION: 1. Tramadol as needed. 2. Vitamin B12 of 1000 mcg daily. 3. Finasteride 5 mg daily. 4. Folic acid 1 mg daily. 5. Lantus 8 units daily. 6. Lactulose 20 g 3 times daily to be titrated for 2-3 bowel movements daily. 7. Magnesium oxide 400 mg b.i.d. 8. Metformin 500 mg b.i.d. 9. Nadolol 20 mg at bedtime. 10. Protonix 40 mg b.i.d. 11. Flomax 0.4 mg at bedtime. 12. Thiamine 100 mg daily. DISCHARGE INSTRUCTIONS: The patient was extensively counseled to quit drinking. TIME SPENT: Total time coordinating the discharge of this patient was 35 minutes. Job ID: [id number]
== END 2019-11-26 17:02 | disposition home health service (06) | DRG 432 ==
LOC: ERS 02:56 → 2NO 05:04 → IMCU/EMU 10:44 → CCU 12:13 → T4-B 11-17 10:43
PROVIDERS: ADMIT Emergency Medicine; ATTEND Internal Medicine
PROC: 0DJ08ZZ Inspection of Upper Intestinal Tract, Via Natural or Artificial Opening Endoscopic (ICD-10-PCS; principal; 2019-11-13)
PROC: 30233L1 Transfusion of Nonautologous Fresh Plasma into Peripheral Vein, Percutaneous Approach (ICD-10-PCS; 2019-11-13)
PROC: 30233N1 Transfusion of Nonautologous Red Blood Cells into Peripheral Vein, Percutaneous Approach (ICD-10-PCS; 2019-11-13)
PROC: 30233K1 Transfusion of Nonautologous Frozen Plasma into Peripheral Vein, Percutaneous Approach (ICD-10-PCS; 2019-11-13)
PROC: 0DJ08ZZ Inspection of Upper Intestinal Tract, Via Natural or Artificial Opening Endoscopic (ICD-10-PCS; 2019-11-14)
PROC: 0DJ08ZZ Inspection of Upper Intestinal Tract, Via Natural or Artificial Opening Endoscopic (ICD-10-PCS; 2019-11-15)
DX: K70.31 Alcoholic cirrhosis of liver with ascites (principal); I85.11 Secondary esophageal varices with bleeding; J96.00 Acute respiratory failure, unspecified whether with hypoxia or hypercapnia; G93.41 Metabolic encephalopathy; I21.A1 Myocardial infarction type 2; F10.288 Alcohol dependence with other alcohol-induced disorder; K76.6 Portal hypertension; K22.10 Ulcer of esophagus without bleeding; E87.1 Hypo-osmolality and hyponatremia; D62 Acute posthemorrhagic anemia; E87.2 Acidosis; E44.0 Moderate protein-calorie malnutrition; D68.9 Coagulation defect, unspecified; K70.40 Alcoholic hepatic failure without coma; E78.5 Hyperlipidemia, unspecified; E78.00 Pure hypercholesterolemia, unspecified; I10 Essential (primary) hypertension; B18.2 Chronic viral hepatitis C; K31.89 Other diseases of stomach and duodenum; E80.6 Other disorders of bilirubin metabolism; E11.65 Type 2 diabetes mellitus with hyperglycemia; D69.6 Thrombocytopenia, unspecified; E87.6 Hypokalemia; E83.42 Hypomagnesemia; R13.10 Dysphagia, unspecified; Z68.30 Body mass index [BMI] 30.0-30.9, adult; Z88.8 Allergy status to other drugs, medicaments and biological substances
CPT/HCPCS: 36415; 36416; 36430; 71045; 74177; 80048; 80053; 80076; 82274; 82553; 82805; 83036; 83690; 83735; 84100; 84484; 85007; 85014; 85018; 85025; 85027; 85610; 85730; 86850; 86900; 86901; 93005; 94002; 94003; 94640; 96361; 96374; C9113; J0360; J0696; J1100; J1815; J2001; J2060; J2270; J2354; J2405; J2550; J2704; J2765; J3010; J3411; J3475; J3490; J7042; J7050; J7620; P9016; P9059; Q9967

== ENCOUNTER 2023-11-13 21:44 | Inpatient (IN) | payer MEDICARE ==
[~2023-11-13 21:44] MED LIST changes: -Gadobenate Dimeglumine 529 MG/1 ML (20ML VIAL) ONE; +Iopamidol-370 76% 500 ML MDV (1 ML CHARGE) ONE; +cefTRIAXone\\ROCEPHIN 2 GM in Sodium Chloride 0.9% 100 ML IVPB ONE
[2023-11-13] MEDS ORDERED: Ondansetron PF 4 MG/2 ML Vial ONE (21:52)
[2023-11-13] MEDS ORDERED: fentaNYL 50 mcg/mL 1 mL Vial ONE (22:14)
[2023-11-13 22:40] LABS: INR-International Normal Ratio 2.6; PTT 30.1 sec (22.9-36.1)
[2023-11-13 22:46] LABS: ALT (SGPT) 24 U/L (8-55); AST (SGOT) 37 U/L (5-34); Alkaline Phosphatase 53 U/L (40-110); Anion Gap 20 mmol/L (10-20); BUN (Urea Nitrogen) 24 mg/dL (8.4-25.7); Bilirubin, Total 1.7 mg/dL (0.2-1.2); Calc. Creatinine Clearance 0 mL/min (70-130); Calcium 7.7 mg/dL (7.8-10.44); Carbon Dioxide 12 mmol/L (23-31); Chloride 104 mmol/L (98-107); Estimated GFR 92; Globulin 2.4 g/dL (2.4-3.5); Glucose 291 mg/dL (80-115); Potassium 4.7 mmol/L (3.5-5.1); Protein, Total 4.4 g/dL (5.8-8.1); Sodium 131 mmol/L (136-145)
[2023-11-13] MEDS ORDERED: Pantoprazole 40 MG VIAL ONE (22:54)
[2023-11-13] MEDS ORDERED: Octreotide Acetate 500 MCG/ML VIAL ONE (22:55)
[2023-11-13] MEDS ORDERED: Ondansetron PF 4 MG/2 ML Vial IVP PRN ×2 (23:00→23:38)
[2023-11-13] MEDS ORDERED: Ondansetron ODT 4 MG TAB SL PRN (23:00)
[2023-11-13] MEDS ORDERED: Acetaminophen 325 MG TAB PO PRN (23:00)
[2023-11-13] MEDS ORDERED: Pantoprazole 80 MG, Admixture Fee 1 EACH in Sodium Chloride 0.9% 100 ML IVPB SCH (23:15)
[2023-11-13] MEDS ORDERED: Octreotide Acetate 1,250 MCG in Sodium Chloride 0.9% 250 ML 250 ML IVPB SCH ×2 (23:15→23:30)
[2023-11-13] MEDS ORDERED: Electrolyte Replacement Protocol 1 EACH IVPB PRN (23:21)
[2023-11-13] MEDS ORDERED: Acetaminophen 650 MG Suppository PR PRN (23:21)
[2023-11-13] MEDS ORDERED: Acetaminophen 325 MG (10.15 ML) UDCUP PO PRN (23:21)
[2023-11-13] MEDS ORDERED: Ondansetron ODT 4 MG TAB PO PRN (23:38)
[2023-11-13] MEDS ORDERED: Lorazepam 1 MG TAB PO PRN (23:38)
[2023-11-13] MEDS ORDERED: Lorazepam 2 MG/ML VIAL IM PRN (23:38)
[2023-11-13] MEDS ORDERED: Senokot S 8.6-50 MG TAB PO PRN (23:38)
[2023-11-13] MEDS ORDERED: HumaLOG 300 UNITS/3 ML VIAL SC PRN ×2 (23:39)
[2023-11-13] MEDS ORDERED: Dextrose 50% Abboject 50 ML SYRINGE SLOW IVP PRN (23:39)
[2023-11-13] MEDS ORDERED: Glucagon 1 MG/ML KIT IM PRN (23:39)
[2023-11-13] MEDS ORDERED: Dextrose 5% in Water 1,000 ML IV PRN (23:39)
[2023-11-13 23:58] LABS: #Monocytes 1.1 thou/uL (0.11-0.59); #Neutrophils 10.7 thou/uL (1.40-6.50); %Basophils 0.2 % (0.0-1.0); %Eosinophils 0.1 % (0.0-10.0); %Monocytes 8.6 % (0.0-10.0); %Neutrophils 84.5 % (42.0-75.0); Hematocrit 19.3 % (42.0-52.0); Hemoglobin 5.7 g/dL (14.0-18.0); Mean Corpuscular HGB CONC 29.5 g/dL (32.0-36.0); Mean Corpuscular Volume 84.6 fl (78.0-98.0); Platelet Count 103 10x3/uL (130-400); RBC Distribution Width 18.1 % (11.5-14.5); Red Blood Cell (RBC) Count 2.28 mill/uL (4.70-6.10); White Blood Cell (WBC) Count 12.6 10x3/uL (4.8-10.8)
[2023-11-13] MEDS ORDERED: Albumin 25% 25 GM (100 mL) BOT IVPB SCH (23:59)
[2023-11-14 00:28] LABS: Critical Call Chem-Lactate NUR..LS6@0028; Lactic Acid 8.4 mmol/L (0.5-2.2)
[2023-11-14] MEDS ORDERED: Lorazepam 2 MG/ML VIAL ONE (00:29)
[2023-11-14] MEDS ORDERED: Lorazepam 2 MG/ML VIAL SLOW IVP SCH (00:30)
[2023-11-14] MEDS ORDERED: Ondansetron PF 4 MG/2 ML Vial IVP SCH (00:30)
[2023-11-14] MEDS ORDERED: Phytonadione 10 MG in Sodium Chloride 0.9% 50 ML IVPB SCH (00:45)
[2023-11-14] MEDS: Lactated Ringer's 1,000 ML IV SCH ×4 (01:33→05:41)
[2023-11-14] MEDS: Thiamine HCl 200 MG/2 ML VIAL SLOW IVP SCH ×2 (01:49→23:03)
[2023-11-14 02:53] LABS: Amphetamine Not Detected (NotDetected); Barbiturates Screen Not Detected (NotDetected); Benzodiazepine Screen Detected (NotDetected); Cocaine Metabolite Screen Not Detected (NotDetected); Methadone Not Detected (NotDetected); Methamphetamine Not Detected (NotDetected); Opiate Screen Not Detected (NotDetected); Oxycodone Screen Not Detected (NotDetected); Phencyclidine (PCP) Not Detected (NotDetected); THC/Cannabinoid Screen Not Detected (NotDetected); Tricyclic Screen Not Detected (NotDetected)
[2023-11-14 03:59] LABS: Hematocrit 21.6 % (42.0-52.0); Hemoglobin 6.9 g/dL (14.0-18.0); Manual Diff?? YES; Mean Corpuscular HGB CONC 31.9 g/dL (32.0-36.0); Mean Corpuscular Hemoglobin 28.5 pg (27.0-31.0); Mean Platelet Volume 12.7 fL (7.4-10.4); Platelet Count 101 10x3/uL (130-400); RBC Distribution Width 15.7 % (11.5-14.5); Red Blood Cell (RBC) Count 2.42 mill/uL (4.70-6.10)
[2023-11-14 04:01] LABS: White Blood Cell (WBC) Count 30.7 10x3/uL (4.8-10.8)
[2023-11-14 04:02] LABS: Delete Auto Diff?? YES; Mean Corpuscular Volume 89.3 fl (78.0-98.0)
[2023-11-14 04:11] LABS: INR-International Normal Ratio 3.4; PTT 42.7 sec (22.9-36.1); Prothrombin Time 34.3 sec (12.0-14.7)
[2023-11-14] MEDS ORDERED: Sodium Bicarb 50 mEq/50 ML VIAL ONE ×2 (04:21→04:52)
[2023-11-14] MEDS ORDERED: Lactated Ringer's 1,000 ML IV SCH (04:30)
[2023-11-14] MEDS ORDERED: Vasopressin 20 UNITS in Sodium Chloride 0.9% 50 ML IV SCH (04:30)
[2023-11-14 04:31] LABS: Anisocytosis SLIGHT = 6-15 cells HPF (0-5); Band 10 % (5-11); Burr Cells SLIGHT = 2-5 cells HPF (0-1); CellaVision Operator ID lab.sh2; Hypochromia SLIGHT = 6-15 cells HPF (0-5); Lymphocytes 2 % (21-51); Monocytes 6 % (0-10); Neutrophil 82 % (42-75); Ovalocytes SLIGHT = 2-5 cells HPF (0-1); Platelet Adequacy Comment Platelets Decreased; Poikilocytosis SLIGHT = 6-15 cells HPF (0-5); Polychromasia MODERATE = 3-4 cells HPF (0-2); Tear Drops SLIGHT = 2-5 cells HPF (0-1); Total Cell Count 100
[2023-11-14] MEDS ORDERED: Ventilator Sedation Protocol 1 EACH FS ONE (04:34)
[2023-11-14] MEDS ORDERED: NOREPINEPHRINE 8 MG/250 ML-D5W 250 ML ONE (04:34)
[2023-11-14] MEDS: Sodium Bicarb 50 mEq/50 ML VIAL IVP SCH ×2 (04:39→05:00)
[2023-11-14] MEDS ORDERED: Rocuronium Bromide 10 MG/ML (10ML VIAL) IVP SCH (04:40)
[2023-11-14] MEDS ORDERED: Etomidate 40 MG (20 mL) VIAL IVP SCH (04:40)
[2023-11-14] MEDS ORDERED: Propofol BOLUS 1,000 MG/100 ML VIAL IV PRN (04:45)
[2023-11-14] MEDS ORDERED: NOREPINEPHRINE 8 MG/250 ML-D5W 250 ML IVPB SCH (04:45)
[2023-11-14] MEDS ORDERED: DISCONTINUE PREVIOUS NARCOTIC PAIN MEDICATIONS AND BENZODIAZEPINES FS SCH (04:45)
[2023-11-14] MEDS ORDERED: Morphine 2 MG/ML VIAL SLOW IVP PRN (04:45)
[2023-11-14] MEDS ORDERED: Fentanyl BOLUS 250 ML IVPB PRN (04:45)
[2023-11-14 04:52] LABS: Acetaminophen Less than 10 mcg/mL (10.0-30.0); Alcohol Less than 10.0 mg/dL (Less than 10); Salicylate Less than 8.0 mg/dL (15.0-30.0)
[2023-11-14 04:57] LABS: Base Excess (BEa) -10.5 mEq/L (-2.0 to +3.0); CO2 Tension 27.1 mmHg (35.0-45.0); Calcium, Ionized (arterial) 0.98 mmol/L (1.12-1.30); Hematocrit-ABG 17 % (42.0-52.0); pH, Arterial 7.341 (7.35-7.45)
[2023-11-14] MEDS ORDERED: Rocuronium Bromide 10 MG/ML (10ML VIAL) ONE (05:00)
[2023-11-14] MEDS ORDERED: Sodium Bicarb 50 mEq/50 ML VIAL IVP SCH (05:00)
[2023-11-14] MEDS ORDERED: Etomidate 40 MG (20 mL) VIAL ONE (05:00)
[2023-11-14 05:04] LABS: Actual Bicarbonate (HCO3a) 14.3 mEq/L (22-28)
[2023-11-14 05:05] LABS: Hemoglobin (Hb) 5.8 g/dL (14.0-18.0); Potassium - ABG Lab 6.09 mmol/L (3.70-5.30)
[2023-11-14 05:05] LABS: Critical Call Chem-Lactate NUR.LS6@0505; Lactic Acid 12.8 mmol/L (0.5-2.2)
[2023-11-14 05:06] LABS: ALT (SGPT) 19 U/L (8-55); AST (SGOT) 22 U/L (5-34); Albumin 2.1 g/dL (3.4-4.8); Alkaline Phosphatase 37 U/L (40-110); Anion Gap 20 mmol/L (10-20); BUN (Urea Nitrogen) 25 mg/dL (8.4-25.7); Bilirubin, Total 3.6 mg/dL (0.2-1.2); Calc. Creatinine Clearance 79 mL/min (70-130); Calcium 7.1 mg/dL (7.8-10.44); Carbon Dioxide 12 mmol/L (23-31); Chloride 106 mmol/L (98-107); Critical Call Chemistry NUR.LS6@0505; Estimated GFR 82; Globulin 1.4 g/dL (2.4-3.5); Glucose 306 mg/dL (80-115); Magnesium 1.5 mg/dL (1.6-2.6); Phosphorus 3.3 mg/dL (2.3-4.7); Potassium 6.6 mmol/L (3.5-5.1); Protein, Total 3.5 g/dL (5.8-8.1); Sodium 131 mmol/L (136-145)
[2023-11-14 05:06] LABS: ALV-art Gradient 201.125 mmHg (0-20); Puncture Site LBA
[2023-11-14] MEDS: Fentanyl CADD 100 ML IV SCH ×2 (05:08→21:13)
[2023-11-14] MEDS ORDERED: Insulin Regular 300 UNITS/3 ML VIAL IVP SCH ×2 (05:15)
[2023-11-14] MEDS ORDERED: CALCIUM GLUC 1 GM/NS 50 ML 1 GM in Premix 1 BAG IVPB SCH (05:30)
[2023-11-14] MEDS ORDERED: Sodium Bicarbonate 150 MEQ in Sterile Water 1,000 ML IV SCH ×2 (05:30→15:30)
[2023-11-14] MEDS ORDERED: EPINEPHrine 1 MG/10 ML Abboject SYRINGE ONE (05:31)
[2023-11-14] MEDS ORDERED: Albumin 25% 25 GM (100 mL) BOT IVPB SCH (06:00)
[2023-11-14] MEDS ORDERED: Magnesium 2 GM/50 ML(in water) 2 GM in Premix 1 BAG IVPB SCH ×2 (06:15→21:00)
[2023-11-14] MEDS ORDERED: Vecuronium 10 MG VIAL ONE (07:41)
[2023-11-14 07:52] LABS: Actual Bicarbonate (HCO3a) 18.8 mEq/L (22-28); Base Excess (BEa) -5.1 mEq/L (-2.0 to +3.0); CO2 Tension 29.7 mmHg (35.0-45.0); Calcium, Ionized (arterial) 0.92 mmol/L (1.12-1.30); Carboxyhemoglobin (COHb) 1.9 gm% (0.0-3.0); Hematocrit-ABG 20 % (42.0-52.0); Hemoglobin (Hb) 6.8 g/dL (14.0-18.0); O2 Tension (PaO2), arterial 232.3 mmHg (> 70.0); Potassium - ABG Lab 4.25 mmol/L (3.70-5.30); pH, Arterial 7.419 (7.35-7.45)
[2023-11-14 07:54] LABS: Puncture Site LBA
[2023-11-14 07:55] LABS: ALV-art Gradient 87.075 mmHg (0-20)
[2023-11-14] MEDS ORDERED: Bacteriostatic Water 30 ML VIAL FS PRN (08:01)
[2023-11-14] MEDS: Vecuronium 10 MG VIAL IVP PRN ×2 (08:02→10:15)
[2023-11-14] MEDS: Lorazepam 2 MG/ML VIAL SLOW IVP PRN ×2 (08:03→10:15)
[2023-11-14] MEDS: Pantoprazole 40 MG VIAL IVP SCH ×2 (08:09→20:33)
[2023-11-14] MEDS: cefTRIAXone\\ROCEPHIN 1 GM in Sodium Chloride 0.9% 100 ML IVPB SCH (08:10)
[2023-11-14] MEDS ORDERED: Cyanocobalamin (Vitamin B-12) 1,000 MCG TAB PO SCH (09:00)
[2023-11-14] MEDS ORDERED: Lactulose 20 GM (30 mL) UDCUP PO SCH (09:00)
[2023-11-14] MEDS ORDERED: Pantoprazole 40 MG VIAL IVP SCH ×2 (09:00)
[2023-11-14] MEDS ORDERED: Multivit, Therapeutic 1 TAB PO SCH (09:00)
[2023-11-14] MEDS: Multivitamin W/ Minerals 1 TAB PO SCH (09:05)
[2023-11-14] MEDS: Folic Acid 1 MG TAB PO SCH (09:05)
[2023-11-14 10:21] LABS: #Monocytes 1.5 thou/uL (0.11-0.59); #Neutrophils 11.7 thou/uL (1.40-6.50); %Basophils 0.1 % (0.0-1.0); %Eosinophils 0.1 % (0.0-10.0); %Lymphocytes 4.1 % (21.0-51.0); %Monocytes 10.8 % (0.0-10.0); %Neutrophils 84.5 % (42.0-75.0); Hemoglobin 6.3 g/dL (14.0-18.0); Mean Corpuscular HGB CONC 33.2 g/dL (32.0-36.0); Mean Platelet Volume 10.4 fL (7.4-10.4); RBC Distribution Width 18.4 % (11.5-14.5); Red Blood Cell (RBC) Count 2.25 mill/uL (4.70-6.10)
[2023-11-14 10:32] LABS: Mean Corpuscular Volume 84.4 fl (78.0-98.0); Platelet Count 50 10x3/uL (130-400); White Blood Cell (WBC) Count 13.8 10x3/uL (4.8-10.8)
[2023-11-14 10:33] LABS: INR-International Normal Ratio 1.8; Prothrombin Time 20.9 sec (12.0-14.7)
[2023-11-14 10:34] LABS: PTT 36.9 sec (22.9-36.1)
[2023-11-14 10:48] LABS: Anion Gap 15 mmol/L (10-20); BUN (Urea Nitrogen) 22 mg/dL (8.4-25.7); Calc. Creatinine Clearance 91 mL/min (70-130); Calcium 7.4 mg/dL (7.8-10.44); Carbon Dioxide 23 mmol/L (23-31); Chloride 104 mmol/L (98-107); Estimated GFR 93; Glucose 261 mg/dL (80-115); Sodium 138 mmol/L (136-145)
[2023-11-14 10:49] LABS: Lactic Acid 7.1 mmol/L (0.5-2.2)
[2023-11-14] MEDS: HumaLOG 300 UNITS/3 ML VIAL SC PRN ×4 (11:09→20:48)
[2023-11-14 14:30] LABS: #Basophils 0.1 thou/uL (0.0-0.2); #Eosinphils 0.2 thou/uL (0.0-0.7); #Monocytes 1.6 thou/uL (0.11-0.59); #Neutrophils 14.7 thou/uL (1.40-6.50); %Basophils 0.5 % (0.0-1.0); %Eosinophils 0.9 % (0.0-10.0); %Lymphocytes 3.7 % (21.0-51.0); %Monocytes 9.1 % (0.0-10.0); %Neutrophils 85.5 % (42.0-75.0); Hematocrit 22.5 % (42.0-52.0); Hemoglobin 7.6 g/dL (14.0-18.0); Mean Corpuscular HGB CONC 33.8 g/dL (32.0-36.0); Mean Corpuscular Hemoglobin 28.6 pg (27.0-31.0); Mean Corpuscular Volume 84.6 fl (78.0-98.0); Mean Platelet Volume 10.9 fL (7.4-10.4); RBC Distribution Width 18.5 % (11.5-14.5); Red Blood Cell (RBC) Count 2.66 mill/uL (4.70-6.10); White Blood Cell (WBC) Count 17.2 10x3/uL (4.8-10.8)
[2023-11-14 14:37] LABS: Platelet Count 49 10x3/uL (130-400)
[2023-11-14 14:48] LABS: Anion Gap 13 mmol/L (10-20); BUN (Urea Nitrogen) 22 mg/dL (8.4-25.7); Calc. Creatinine Clearance 95 mL/min (70-130); Calcium 7.2 mg/dL (7.8-10.44); Carbon Dioxide 25 mmol/L (23-31); Estimated GFR 94; Glucose 250 mg/dL (80-115); Phosphorus 2.7 mg/dL (2.3-4.7); Potassium 3.8 mmol/L (3.5-5.1); Sodium 139 mmol/L (136-145)
[2023-11-14 14:54] LABS: Chloride 105 mmol/L (98-107)
[2023-11-14] MEDS ORDERED: Lorazepam 1 MG TAB PO PRN (23:38)
[2023-11-15] MEDS: HumaLOG 300 UNITS/3 ML VIAL SC PRN ×3 (00:39→11:13)
[2023-11-15] MEDS: Propofol 1,000 MG/100 ML VIAL IV PRN ×2 (01:03→09:10)
[2023-11-15 04:38] LABS: #Basophils 0.1 thou/uL (0.0-0.2); #Eosinphils 0.7 thou/uL (0.0-0.7); #Monocytes 1.4 thou/uL (0.11-0.59); #Neutrophils 10.4 thou/uL (1.40-6.50); %Basophils 0.5 % (0.0-1.0); %Eosinophils 5.2 % (0.0-10.0); %Monocytes 10.4 % (0.0-10.0); %Neutrophils 78.2 % (42.0-75.0); Hematocrit 25.5 % (42.0-52.0); Hemoglobin 8.7 g/dL (14.0-18.0); Mean Corpuscular HGB CONC 34.1 g/dL (32.0-36.0); Mean Corpuscular Hemoglobin 29.4 pg (27.0-31.0); Mean Corpuscular Volume 86.1 fl (78.0-98.0); Mean Platelet Volume 10.3 fL (7.4-10.4); RBC Distribution Width 17.7 % (11.5-14.5); Red Blood Cell (RBC) Count 2.96 mill/uL (4.70-6.10); White Blood Cell (WBC) Count 13.3 10x3/uL (4.8-10.8)
[2023-11-15 04:41] LABS: Platelet Count 64 10x3/uL (130-400)
[2023-11-15 04:50] LABS: INR-International Normal Ratio 1.7; PTT 34.4 sec (22.9-36.1); Prothrombin Time 20.3 sec (12.0-14.7)
[2023-11-15 05:01] LABS: ALT (SGPT) 50 U/L (8-55); AST (SGOT) 117 U/L (5-34); Albumin 2.6 g/dL (3.4-4.8); Alkaline Phosphatase 60 U/L (40-110); Anion Gap 11 mmol/L (10-20); BUN (Urea Nitrogen) 19 mg/dL (8.4-25.7); Bilirubin, Total 6.1 mg/dL (0.2-1.2); Calc. Creatinine Clearance 101 mL/min (70-130); Calcium 7.3 mg/dL (7.8-10.44); Carbon Dioxide 26 mmol/L (23-31); Chloride 103 mmol/L (98-107); Estimated GFR 95; Globulin 1.7 g/dL (2.4-3.5); Glucose 174 mg/dL (80-115); Potassium 3.2 mmol/L (3.5-5.1); Protein, Total 4.3 g/dL (5.8-8.1); Sodium 137 mmol/L (136-145)
[2023-11-15 07:36] LABS: Actual Bicarbonate (HCO3a) 28.8 mEq/L (22-28); Base Excess (BEa) 6.5 mEq/L (-2.0 to +3.0); CO2 Tension 32.5 mmHg (35.0-45.0); Calcium, Ionized (arterial) 1.01 mmol/L (1.12-1.30); Carboxyhemoglobin (COHb) 1.3 gm% (0.0-3.0); Hematocrit-ABG 26 % (42.0-52.0); Hemoglobin (Hb) 8.9 g/dL (14.0-18.0); O2 Tension (PaO2), arterial 149.7 mmHg (> 70.0); Potassium - ABG Lab 3.29 mmol/L (3.70-5.30); pH, Arterial 7.566 (7.35-7.45)
[2023-11-15] MEDS: Potassium Chloride 20 MEQ in Premix 1 BAG IVPB SCH ×2 (07:50→08:59)
[2023-11-15] MEDS: cefTRIAXone\\ROCEPHIN 1 GM in Sodium Chloride 0.9% 100 ML IVPB SCH (07:50)
[2023-11-15] MEDS: Pantoprazole 40 MG VIAL IVP SCH (07:50)
[2023-11-15] MEDS: Folic Acid 1 MG TAB PO SCH (07:51)
[2023-11-15] MEDS: Multivitamin W/ Minerals 1 TAB PO SCH (07:51)
[2023-11-15 07:56] LABS: ALV-art Gradient 94.875 mmHg (0-20); Puncture Site RRA
[2023-11-15 10:25] VITALS: BMI 25.1
[2023-11-15] MEDS: Lactated Ringer's 1,000 ML IV SCH ×2 (11:13)
[2023-11-15] MEDS: Lorazepam 2 MG/ML VIAL SLOW IVP PRN (14:24)
[2023-11-15 14:38] VITALS: BP 118/47
[2023-11-15 14:41] LABS: Potassium 3.7 mmol/L (3.5-5.1)
[2023-11-15 16:06] VITALS: TEMP 98.3
[2023-11-15] MEDS: Fentanyl CADD 100 ML IV SCH (17:01)
[2023-11-15] MEDS ORDERED: Lorazepam 1 MG TAB PO PRN (23:38)
[2023-11-16] MEDS ORDERED: Thiamine 100 MG TAB PO SCH (21:00)
[2023-11-16] MEDS ORDERED: Lorazepam 0.5 MG TAB PO PRN (23:38)
== END 2023-11-15 18:50 | disposition short-term general hospital (02) | DRG 432 ==
LOC: ERS 21:44 → CCU 22:51
PROVIDERS: ADMIT Student in an Organized Health Care Education/Training Program; ATTEND Hospitalist
PROC: 30233N1 Transfusion of Nonautologous Red Blood Cells into Peripheral Vein, Percutaneous Approach (ICD-10-PCS; 2023-11-13)
PROC: 30233J1 Transfusion of Nonautologous Serum Albumin into Peripheral Vein, Percutaneous Approach (ICD-10-PCS; 2023-11-13)
PROC: 0BH17EZ Insertion of Endotracheal Airway into Trachea, Via Natural or Artificial Opening (ICD-10-PCS; 2023-11-13)
PROC: 5A1935Z Respiratory Ventilation, Less than 24 Consecutive Hours (ICD-10-PCS; 2023-11-13)
PROC: 06L38CZ Occlusion of Esophageal Vein with Extraluminal Device, Via Natural or Artificial Opening Endoscopic (ICD-10-PCS; principal; 2023-11-14)
PROC: 30233K1 Transfusion of Nonautologous Frozen Plasma into Peripheral Vein, Percutaneous Approach (ICD-10-PCS; 2023-11-14)
PROC: 30233M1 Transfusion of Nonautologous Plasma Cryoprecipitate into Peripheral Vein, Percutaneous Approach (ICD-10-PCS; 2023-11-14)
PROC: 4A133R1 Monitoring of Arterial Saturation, Peripheral, Percutaneous Approach (ICD-10-PCS; 2023-11-14)
PROC: 3E033XZ Introduction of Vasopressor into Peripheral Vein, Percutaneous Approach (ICD-10-PCS; 2023-11-14)
DX: K70.30 Alcoholic cirrhosis of liver without ascites (principal); I85.11 Secondary esophageal varices with bleeding; J96.00 Acute respiratory failure, unspecified whether with hypoxia or hypercapnia; R57.8 Other shock; E87.20 Acidosis, unspecified; D68.9 Coagulation defect, unspecified; G93.40 Encephalopathy, unspecified; E72.20 Disorder of urea cycle metabolism, unspecified; D62 Acute posthemorrhagic anemia; Z88.8 Allergy status to other drugs, medicaments and biological substances; Z79.899 Other long term (current) drug therapy; Z79.4 Long term (current) use of insulin; Z98.890 Other specified postprocedural states; Z79.84 Long term (current) use of oral hypoglycemic drugs; E78.5 Hyperlipidemia, unspecified; E11.9 Type 2 diabetes mellitus without complications; I10 Essential (primary) hypertension; E87.5 Hyperkalemia; E87.6 Hypokalemia; E88.09 Other disorders of plasma-protein metabolism, not elsewhere classified
CPT/HCPCS: 36416; 36430; 36556; 36600; 70450; 71045; 74177; 80053; 80306; 80307; 82105; 82140; 82248; 82274; 82805; 83605; 83735; 84100; 85025; 85610; 85730; 86850; 86900; 86901; 93005; 93010; 94002; 94003; 96361; 96374; 96375; 99292; A4217; C9113; J0613; J0696; J1815; J2060; J2354; J2405; J2704; J3010; J3411; J3430; J3475; J3480; J3490; J7050; J7120; P9012; P9016; P9035; P9040; P9047; P9048; P9059; Q9967